=== PATIENT | male | born 1935 | race Caucasian/White ===

== ENCOUNTER 2020-04-12 09:17 | Emergency (ER) | payer MEDICARE, SELFPAY ==
[2020-04-12 09:25] VITALS: BP 156/76; PULSE 76; RESP 16; TEMP 36.4; O2SAT 100
--- NOTE | 2020-04-12 09:37 | ED.GENADULT ---
HPI - General Adult General Chief complaint: Wound/Laceration Stated complaint: dressing change Time Seen by Provider: 04/12/20 09:38 Source: patient Mode of arrival: ambulatory Limitations: no limitations History of Present Illness HPI narrative: 85-year-old male patient presents to the [facility] with complaints of a skin tear to the right wrist that happened about a week ago but states that he has been putting a dressing on it and today the dressing is stuck to the wound and he is unable to get it off. Patient states he is up-to-date on his tetanus. Patient states that he cut it while doing laundry about a week ago. Patient states he is putting salve on it as well as putting gauze over it and Band-Aids. Related Data Home Medications Medication Instructions Recorded Confirmed aspirin [Adult Aspirin EC Low 81 mg PO DAILY 04/12/20 04/12/20 Strength] Allergies Allergy/AdvReac Type Severity Reaction Status Date / Time No Known Allergies Allergy Unverified 01/02/19 14:57 Review of Systems Review of Systems: Narrative: CONSTITUTIONAL: Denies fever, chills, or sweats. EYES: Denies visual changes, redness, or discharge. ENT: Denies rhinorrhea, congestion, sore throat, or otalgia. CARDIOVASCULAR: Denies chest pain, palpitations, or edema. RESPIRATORY: Denies cough or dyspnea. GASTROINTESTINAL: Denies abdominal pain, nausea, vomiting, or diarrhea. GENITOURINARY: Denies dysuria or hematuria. SKIN: Denies rash or itching. Positive skin tear right wrist MUSCULOSKELETAL: Denies back pain, joint pain, or myalgia. NEUROLOGIC: Denies headache, numbness, or weakness. PSYCHIATRIC: Denies anxiety or depression. FORMERLY [facility] Past Medical History Medical History (Updated 04/12/20 @ 09:48 by ARANZA Joyce) Depression Family history of head, eyes, ears, nose, and throat (HEENT) problems Detached retina right eye Far-sighted FH: cataracts Left GERD (gastroesophageal reflux disease) Hypercholesterolemia Hypertension Irregular heartbeat Nearsightedness Pacemaker Surgical History Surgical History (Updated 04/12/20 @ 09:40 by ARANZA Joyce) Aortocoronary bypass status Bypass surgery with graft 2016 Social History Social History (Updated 04/12/20 @ 09:41 by GAURANG Joyce Smoking status: Former smoker Alcohol intake: former Comments At the time of my signature I agree with nursing past medical history, surgical, social, and family history. There is no relevant family history pertinent to the presenting complaint. Exam Narrative: Exam Narrative: GENERAL: Well-appearing, well-nourished, and in no acute distress. HEAD: Normocephalic, atraumatic. EYES: PERRLA and EOMI. ENT: Nares clear, no rhinorrhea or epistaxis. Mucous membranes moist. NECK: Supple. No lymphadenopathy CHEST: Clear to auscultation. No respiratory distress. HEART: Regular rate and rhythm. No murmur heard. Normal peripheral pulses. ABDOMEN: Soft, nontender, nondistended, normal active bowel sounds. EXTREMITIES: Normal range of motion. No edema. SKIN: Warm, dry, no rash. Patient has approximately 2.5 x 2 cm skin tear noted to the right wrist on the radial side. There is no discharge, no surrounding erythema or tenderness noted. There is some of his gauze that is stuck to the middle of the wound. NEURO: No focal deficits. Alert and oriented x3. Course Vital Signs Vital signs: Vital Signs Temperature 36.4 C 04/12/20 09:25 Pulse Rate 76 04/12/20 09:25 Respiratory Rate 16 04/12/20 09:25 Blood Pressure 156/76 H 04/12/20 09:25 Pulse Oximetry 100 04/12/20 09:25 Temperature 36.4 C 04/12/20 09:25 Pulse Rate 76 04/12/20 09:25 Respiratory Rate 16 04/12/20 09:25 Blood Pressure 156/76 H 04/12/20 09:25 Pulse Oximetry 100 04/12/20 09:25 Vital signs reviewed. The patient has been informed that they may have pre-hypertension or Hypertension based on a BP reading in the department. I recommend that the
== END 2020-04-12 09:59 | disposition home or self-care (01) ==
PROVIDERS: Emergency Provider Nurse Practitioner Family
DX: Z48.00 Encounter for change or removal of nonsurgical wound dressing (principal); S61.511A Laceration without foreign body of right wrist, initial encounter; X58.XXXA Exposure to other specified factors, initial encounter; K21.9 Gastro-esophageal reflux disease without esophagitis; E78.00 Pure hypercholesterolemia, unspecified; I10 Essential (primary) hypertension; Z95.0 Presence of cardiac pacemaker; Z95.5 Presence of coronary angioplasty implant and graft; Z79.82 Long term (current) use of aspirin
CPT/HCPCS: 99213; G0463

== ENCOUNTER 2021-02-15 17:22 | Emergency (ER) | payer MEDICARE, SELFPAY ==
--- NOTE | ~2021-02-15 | XR_ITS ---
XR wrist RT min 3V DATE: 02/15/2021 18:11 INDICATION: Fall. Right wrist injury, pain TECHNIQUE: 4 views COMPARISON: None FINDINGS: There is diffuse osteopenia. Approximately 5.6 mm cyst at the waist of the navicular bone. There is no abnormal increased density of the proximal portion of the navicular bone to suggest avascular necrosis. No wrist fracture or dislocation is detected. IMPRESSION: Osteopenia Benign navicular waist cyst Reviewed, dictated and finalized at location A.
--- NOTE | ~2021-02-15 | XR_ITS ---
XR hip RT 2V w AP pelvis DATE: 02/15/2021 18:11 INDICATION: Right pelvic and hip pain following a fall from bed TECHNIQUE: AP pelvis. AP, lateral and crosstable lateral views of right hip COMPARISON: None FINDINGS: There is diffuse osteopenia. There is prominent fracture deformity of L4 of uncertain age. Normal alignment at the pubic symphysis and sacroiliac joints. No pelvic fracture is evident. No frac ture or dislocation, avascular necrosis or bone destruction of the right hip is detected. Hip joint s paces are symmetric and relatively preserved. There is evidence of a probable large right inguinal hernia containing multiple loops of small bowel. IMPRESSION: Diffuse osteopenia No pelvic fracture or right hip fracture or dislocation is evident Fracture deformity of L4 of uncertain age Large bowel containing right inguinal hernia Reviewed, dictated and finalized at location A.
--- NOTE | ~2021-02-15 | XR_ITS ---
XR knee RT 3V DATE: 02/15/2021 18:11 INDICATION: Fall from bed. Right knee injury, pain TECHNIQUE: 3 views including crosstable lateral COMPARISON: None FINDINGS: There is moderate suprapatellar knee joint effusion. There is diffuse osteopenia. There is superior pole and particularly prominent inferior pole patellar enthesopathy. No fracture or dislocation, periosteal reaction or bone destruction is detected. There is moderately severe loss of joint space at the medial compartment consistent with osteoarthrit is. IMPRESSION: Suprapatellar knee joint effusion Osteopenia Medial compartment osteoarthritis Prominent patellar enthesopathy Reviewed, dictated and finalized at location A.
--- NOTE | 2021-02-15 17:29 | ED.UPPEXIN ---
HPI - Extremity Injury (Upper) General Chief Complaint: Extremity Injury, Upper Stated Complaint: fall/rt wrist/rt knee/rt hip injury Source: patient Mode of arrival: ambulatory Limitations: no limitations History of Present Illness HPI narrative: Patient is an 85-year-old male who presents complaining of right arm pain, right knee pain and right hip pain. Patient reports falling while getting out of bed this morning. Denies hitting head or neck, denies LOC. Patient is not on anticoagulants. Patient has a large skin tear to right forearm at wrist. No visible injury to the knee. He reports his hip hurts because my knee hurts . Patient does not have a history of falls. He denies other injuries. He denies taking [id number] medications for pain prior to arrival. Patient reports up to date on tetanus. MD complaint: injury to: right and arm Related Data Home Medications Medication Instructions Recorded Confirmed No Home Medications 02/15/21 02/15/21 Allergies Allergy/AdvReac Type Severity Reaction Status Date / Time No Known Allergies Allergy Unverified 02/15/21 17:52 Review of Systems Review of Systems: CONSTITUTIONAL: Denies fever, chills, or sweats. EYES: Denies visual changes, redness, or discharge. ENT: Denies rhinorrhea, congestion, sore throat, or otalgia. CARDIOVASCULAR: Denies chest pain, palpitations, or edema. RESPIRATORY: Denies cough or dyspnea. GASTROINTESTINAL: Denies abdominal pain, nausea, vomiting, or diarrhea. GENITOURINARY: Denies dysuria or hematuria. SKIN: Reports skin tear to right forearm MUSCULOSKELETAL: Reports right knee pain, right hip pain and right wrist pain. NEUROLOGIC: Denies headache, numbness, dizziness, or weakness. PSYCHIATRIC: Denies anxiety or depression. 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 Please see nursing chart for further information. There is no relevant family history pertinent to the presenting complaint. Exam Narrative: GENERAL: Well-appearing, well-nourished, and in no acute distress. HEAD: Normocephalic, atraumatic. EYES: EOMI. No redness or drainage. Conjunctiva are normal. ENT: Mucous membranes pink and moist. Nares clear. No rhinorrhea. TMs normal bilaterally. Throat normal. Uvula midline. NECK: AROM. Supple. No lymphadenopathy. CHEST: No respiratory distress. Clear to auscultation. HEART: Regular rate and rhythm. No murmur appreciated. Normal peripheral pulses. GI: Soft, nontender without rebound, or guarding. No distention. Bowel sounds normal in all quadrants. MUSCULOSKELETAL: No bony tenderness. EXTREMITIES: Right knee: Normal range of motion, no edema. Right hip: Shortening or rotation, ambulates with difficult. No ecchymosis or abrasions on hip or knee. Right forearm: No deformity, full range of motion, distal sensation intact, good capillary refill SKIN: Approximate 10cm x 12cm skin tear to dorsal right forearm NEURO: No focal deficits. Alert and oriented x3. Gait steady. PSYCH: Normal affect. No signs of depression or anxiety. Course Vital Signs Vital signs: Vital Signs Temperature 36.6 C 02/15/21 17:43 Pulse Rate 85 02/15/21 17:43 Respiratory Rate 16
[2021-02-15 17:43] VITALS: BP 125/60; PULSE 85; RESP 16; TEMP 36.6; O2SAT 98
== END 2021-02-15 19:25 | disposition home or self-care (01) ==
PROVIDERS: Emergency Provider Nurse Practitioner
DX: S51.811A Laceration without foreign body of right forearm, initial encounter (principal); W19.XXXA Unspecified fall, initial encounter; F32.9 Major depressive disorder, single episode, unspecified; G21.9 Secondary parkinsonism, unspecified; K21.9 Gastro-esophageal reflux disease without esophagitis; E78.00 Pure hypercholesterolemia, unspecified; I10 Essential (primary) hypertension; Z95.0 Presence of cardiac pacemaker; Z95.1 Presence of aortocoronary bypass graft
CPT/HCPCS: 73110; 73502; 73562; 99214; G0463

== ENCOUNTER 2021-12-05 17:16 | Emergency (ER) | payer MEDICARE, SELFPAY ==
--- NOTE | ~2021-12-05 | XR_ITS ---
EXAM: XR shoulder RT min 2V DATE: 12/05/2021 18:49 HISTORY: fall with lac eval for retained fb, cuts are in his armpit . COMPARISON: None available. FINDINGS: Decreased mineralization. No fracture or dislocation. No lytic or blastic lesion. Superior migration of the humeral head as can be seen with rotator cuff pathology. Calcific tendinitis. No er osion or periosteal change. Soft tissues within normal limits. IMPRESSION: No acute osseous finding in the right shoulder. Reviewed, dictated and finalized at location K.
[2021-12-05 17:22] VITALS: BP 131/89; PULSE 92; RESP 16; TEMP 36.8; O2SAT 100
[2021-12-05] MEDS: TETANUS,DIPHTHERIA,AC PERTUSSIS ADULT (0.5 ML) BOOSTRIX IM (18:46)
[2021-12-05] MEDS: LIDO 1%/EPINEPHRINE 1:100,000 20 ML VIAL 10 ML INFILTRATE (18:46)
--- NOTE | 2021-12-05 18:54 | ED.WOUNDLAC ---
HPI - Wound/Laceration General Chief Complaint: Wound/Laceration Stated Complaint: R ARM LAC AFTER STOOL COLLAPSED Time Seen by Provider: 12/05/21 18:24 Source: patient History of Present Illness HPI narrative: Patient presents with a laceration to the right axilla. Patient reportedly was sitting on some plastic when it broke and he cut his right armpit on the fractured plastic. I thought the wound was deep so he came to the ER for further evaluation. Reports mild ache to the area worse with moving his arm but no radiation. He denies hitting hishead or any loss of consciousness is not on any blood thinners. He does not remember his last tetanus shot was Related Data Allergies Allergy/AdvReac Type Severity Reaction Status Date / Time No Known Allergies Allergy Unverified 02/15/21 17:52 Review of Systems Review of Systems: CONSTITUTIONAL: Denies fever, chills, or sweats. EYES: Denies visual changes, redness, or discharge. ENT: Denies rhinorrhea, congestion, sore throat, or otalgia. CARDIOVASCULAR: Denies chest pain, palpitations, or edema. RESPIRATORY: Denies cough or dyspnea. GASTROINTESTINAL: Denies abdominal pain, nausea, vomiting, or diarrhea. GENITOURINARY: Denies dysuria or hematuria. SKIN: Denies rash or itching. MUSCULOSKELETAL: Denies back pain, or myalgia. NEUROLOGIC: Denies headache, numbness, dizziness, or weakness. PSYCHIATRIC: Denies anxiety or depression. All systems reviewed & are unremarkable except as noted in HPI and below PMFSH Past Medical History Medical History Depression Family history of head, eyes, ears, nose, and throat (HEENT) problems Detached retina right eye Far-sighted FH: cataracts Left GERD (gastroesophageal reflux disease) Hypercholesterolemia Hypertension Irregular heartbeat Nearsightedness Pacemaker Surgical History Surgical History Aortocoronary bypass status Bypass surgery with graft 2016 Social History Social History Smoking status: Former smoker Alcohol intake: former Exam Narrative: GENERAL: Well-appearing, well-nourished, and in no acute distress. HEAD: Normocephalic, atraumatic. EYES: PERRLA and EOMI. ENT: Nares clear, no rhinorrhea or epistaxis. Mucous membranes moist. NECK: Supple. No masses. No JVD EXTREMITIES: Normal range of motion. No edema. SKIN: Warm, dry, no rash. 2 linear lacerations next to each other in the right axilla. They are approximately 2 and half centimeters in length. They appear to be limited to the subcutaneous tissue there is no muscle tendons or major neurovascular bundles visualized NEURO: No focal deficits. Alert and oriented x3. PSYCH: Normal mood and affect. Course Reevaluation(s) Reevaluation #1: Patient tolerated laceration repair well wound care instructions given Date: 12/05/21 Time: 19:35 Vital Signs Vital signs: Vital Signs Temperature 36.8 C 12/05/21 17:22 Pulse Rate 92 12/05/21 17:22 Respiratory Rate 16 12/05/21 17:22 Blood Pressure 131/89 12/05/21 17:22 Pulse Oximetry 100 12/05/21 17:22 Oxygen Delivery Room Air 12/05/21 17:22 Temperature 36.8 C 12/05/21 17:22 Pulse Rate 92 12/05/21 17:22 Respiratory Rate 16 12/05/21 17:22 Blood Pressure 131/89 12/05/21 17:22 Pulse Oximetry 100 12/05/21 17:22 Oxygen Delivery Room Air 12/05/21 17:22 Procedures Laceration Laceration 1: Date: 12/05/21 Time: 19:24 Site: upper extremity Side (If applicable): right Size (cm): 2.5 Description: linear Depth: simple, single layer Local Anesthetic: lidocaine 1% and with epi Amount of anesthesia used (mL): 4 Pre-repair: wound explored and irrigated ====== Skin Level ====== Skin layer closed with: nylon Size (cm): 3-0 Number of yen
== END 2021-12-05 19:36 | disposition home or self-care (01) ==
PROVIDERS: Emergency Provider Emergency Medicine
DX: S41.111A Laceration without foreign body of right upper arm, initial encounter (principal); Z23 Encounter for immunization; E78.00 Pure hypercholesterolemia, unspecified; I10 Essential (primary) hypertension; K21.9 Gastro-esophageal reflux disease without esophagitis; Z95.0 Presence of cardiac pacemaker; Z95.1 Presence of aortocoronary bypass graft; Z87.891 Personal history of nicotine dependence; W26.8XXA Contact with other sharp object(s), not elsewhere classified, initial encounter
CPT/HCPCS: 12002; 73030; 90471; 90715; 99283

== ENCOUNTER 2022-11-04 20:03 | Emergency (ER) | payer MEDICARE, SELFPAY ==
[2022-11-04] VITALS (25 sets, daily range): BP systolic 143–172; BP diastolic 65–86; PULSE 70–78; RESP 12–24; TEMP 37.1; O2SAT 94–100
--- NOTE | 2022-11-04 20:08 | ECG_ITS ---
Measurements Intervals [place] Rate: 70 P: 122 IA: 170 QRS: 249 QRSD: 135 T: 104 QT: 414 QTc: 447 Interpretive Statements ELECTRONIC ATRIAL PACEMAKER ELECTRONIC VENTRICULAR PACEMAKER ABNORMAL RHYTHM ECG NO PREVIOUS ECG AVAILABLE FOR COMPARISON Electronically Signed On 11-05-2022 9:39:09 CDT by Dpiti Carter M.D.
--- NOTE | 2022-11-04 22:56 | ED.GENADULT ---
HPI - General Adult General Chief complaint: Dizziness Stated complaint: dizziness Time Seen by Provider: 11/04/22 21:38 History of Present Illness HPI narrative: Patient 87-year-old gentleman who presents the emergency department with chief complaint of dizziness. The patient reports that he was at home and had an episode where he felt lightheaded the patient states it lasted for just a couple of minutes and symptoms resolved the patient states he is not no longer any other episodes denies chest pain denies shortness of breath denies syncope patient states that he had no vomiting or diarrhea no other symptoms. Related Data Allergies Allergy/AdvReac Type Severity Reaction Status Date / Time No Known Allergies Allergy Unverified 02/15/21 17:52 Review of Systems Review of Systems: A 10 system review of systems was completed on the patient and is negative except for what is stated in the HPI. Nursing and ancillary documentation was reviewed. [facility] Past Medical History Medical History Depression Family history of head, eyes, ears, nose, and throat (HEENT) problems Detached retina right eye Far-sighted FH: cataracts Left GERD (gastroesophageal reflux disease) Hypercholesterolemia Hypertension Irregular heartbeat Nearsightedness Pacemaker Surgical History Surgical History Aortocoronary bypass status Bypass surgery with graft 2016 Social History Social History Smoking status: Former smoker Alcohol intake: former Exam Narrative: GENERAL: Well-appearing, well-nourished, and in no acute distress. HEAD: Normocephalic, atraumatic. EYES: PERRLA and EOMI. ENT: Nares clear, no rhinorrhea or epistaxis. Mucous membranes moist. NECK: Supple. CHEST: Clear to auscultation. No respiratory distress. HEART: Regular rate and rhythm. No murmur heard. Normal peripheral pulses. ABDOMEN: Soft, nontender, nondistended, normal active bowel sounds. EXTREMITIES: Normal range of motion. No edema. SKIN: Warm, dry, no rash. NEURO: No focal deficits. Alert and oriented x3. PSYCH: Normal mood and affect. Course Course Emergency Course: Differential diagnosis includes arrhythmia, orthostatic hypotension, electrolyte abnormality, UTI, CVA, pulmonary embolism. EKG showed a paced rhythm with a rate of 70. While waiting for the laboratory testing to be performed the patient decided he was feeling well and decided he did not want to do any further testing the patient states that he wants to go home and that he will return if his symptoms worsen. Patient was offered laboratory testing was offered further testing and was explained to the patient we could miss a potentially fatal or permanently disabling condition the patient expressed understanding this was alert oriented denies suicidal or homicidal ideation Vital Signs Vital signs: Vital Signs Temperature 37.1 C 11/04/22 20:06 Pulse Rate 70 11/04/22 20:06 Respiratory Rate 18 11/04/22 20:06 Blood Pressure 172/71 H 11/04/22 20:06 Pulse Oximetry 97 11/04/22 20:06 Oxygen Delivery Room Air 11/04/22 20:06 Temperature 37.1 C 11/04/22 20:06 Pulse Rate 70 11/04/22 22:31 Respiratory Rate 15 11/04/22 22:31 Blood Pressure 150/75 H 11/04/22 22:31 Pulse Oximetry 96 11/04/22 22:31 Oxygen Delivery Room Air 11/04/22 20:06 Medical Decision Making Vital Signs Vital Signs: Vital Signs Temperature 37.1 C 11/04/22 20:06 Pulse Rate 70 11/04/22 20:06 Respiratory Rate 18 11/04/22 20:06 Blood Pressure 172/71 H 11/04/22 20:06 Pulse Oximetry 97 11/04/22 20:06 Oxygen Delivery Room Air 11/04/22 20:06 Temperature 37.1 C 11/04/22 20:06 Pulse Rate 70 11/04/22 22:31 Respiratory Rate 15 11/04/22 22:31 Blood Pressure 150/75 H 06
== END 2022-11-04 23:01 | disposition left against medical advice (07) ==
PROVIDERS: Emergency Provider Emergency Medicine
DX: R42 Dizziness and giddiness (principal); I10 Essential (primary) hypertension; E78.00 Pure hypercholesterolemia, unspecified; H26.9 Unspecified cataract; K21.9 Gastro-esophageal reflux disease without esophagitis; Z95.0 Presence of cardiac pacemaker; Z95.1 Presence of aortocoronary bypass graft; Z87.891 Personal history of nicotine dependence
CPT/HCPCS: 93005; 99283

== ENCOUNTER 2023-11-28 11:28 | Emergency (ER) | payer MEDICARE, SELFPAY ==
--- NOTE | ~2023-11-28 | XR_ITS ---
EXAMINATION: XR chest 1V portable DATE: 11/28/2023 13:21 INDICATION: Weakness. TECHNIQUE: A single frontal view of the chest was obtained. COMPARISON: Chest 2 views 11/07/2013 FINDINGS: There is mild scarring at the lung apices. A calcified left lung nodule is consistent with old granulomatous disease. There is a large hiatal hernia. There is mild atelectasis in right midlung zone. No pleural effusion or pneumothorax. The heart size is normal. There is a left chest pacer wit h leads in right atrium, right ventricle, and coronary sinus. Surgical clips in the right upper quadr ant are likely from cholecystectomy. There is a chronic sclerotic lesion in proximal left humerus, li michael an enchondroma or osteonecrosis. There are surgical clips in the neck. IMPRESSION: 1. Large hiatal hernia. 2. Mild atelectasis in right midlung zone and mild scarring at the lung apices. Reviewed, dictated and finalized at location A.
[2023-11-28 11:29] VITALS: BP 130/58; PULSE 72; RESP 18; TEMP 36.9; O2SAT 99
--- NOTE | 2023-11-28 13:05 | ED.GENADULT ---
HPI - General Adult General Chief complaint: Unspecified Stated complaint: does not feel well Time Seen by Provider: 11/28/23 12:48 History of Present Illness HPI narrative: 88-year-old male present to the emergency department for evaluation of just not feeling well. Patient states he was feeling well yesterday but woke up this morning and was not feeling well. Patient denies any chest pain or shortness of breath. Patient denies any nausea vomiting diarrhea. Patient denies any pain with urination. Patient denies any decreased p.o. intake. Patient states normal have breakfast but did not have breakfast today. Patient neck for reason why he did not. Patient had similar symptoms on October 06 and had extensive workup from outside hospital and patient that time was treated for urinary tract infection. Related Data Allergies Allergy/AdvReac Type Severity Reaction Status Date / Time No Known Allergies Allergy Verified 11/28/23 13:55 Review of Systems Review of Systems: All systems reviewed & are unremarkable except as noted in HPI and below PMFSH Past Medical History Medical History Depression Family history of head, eyes, ears, nose, and throat (HEENT) problems Detached retina right eye Far-sighted FH: cataracts Left GERD (gastroesophageal reflux disease) Hypercholesterolemia Hypertension Irregular heartbeat Nearsightedness Pacemaker Surgical History Surgical History Aortocoronary bypass status Bypass surgery with graft 2016 Social History Social History Smoking status: Former smoker Alcohol intake: former Exam Narrative: APPEARANCE: Well appearing, no pain, no distress, well-nourished. HEAD: normocephalic, atraumatic. EYES: PERRLA/EOMI, conjunctivae clear. NOSE: Normal no drainage EARS:TMS clear with good light reflex. THROAT: Pharynx clear, no exudate. NECK: Supple. No adenopathy, no masses. RESPIRATORY: Airway patent, respirations nonlabored. Clear to auscultation bilaterally, no rales, rhonchi, wheezing. CARDIOVASCULAR: Regular rate and rhythm without murmurs rubs or gallops. ABDOMINAL: Soft, nontender, nondistended, normal bowel sounds MUSCULOSKELETAL: Moves all extremities. Strength/ROM intact, No edema, No calf tenderness. NEURO: Alert. Cranial nerves II through XII intact. Grossly intact SKIN: Warm, dry. Normal Color Course Course Emergency Course: Patient requested to be discharged to home Vital Signs Vital signs: Vital Signs Temperature 98.4 F 11/28/23 11:29 Pulse Rate 72 11/28/23 11:29 Respiratory Rate 18 11/28/23 11:29 Blood Pressure 130/58 L 11/28/23 11:29 Pulse Oximetry 99 11/28/23 11:29 Oxygen Delivery Room Air 11/28/23 11:29 Temperature 98.4 F 11/28/23 11:29 Pulse Rate 70 11/28/23 15:53 Respiratory Rate 18 11/28/23 15:53 Blood Pressure 143/71 H 11/28/23 15:53 Pulse Oximetry 100 11/28/23 15:53 Oxygen Delivery Room Air 11/28/23 11:29 Medical Decision Making MDM Narrative Medical decision making narrative: 88-year-old male presents emergency department for evaluation for not feeling well. Patient is afebrile with no leukocytosis and a stable hemoglobin. Patient has no acute abnormalities on his CMP patient was negative for influenza RSV and for COVID and patient's chest x-ray showed no evidence of pneumonia. Patient's urinalysis was not complete. Patient states he prefers to be discharged to home. Patient is adamant about this. Family is comfortable with plan for discharge and close follow-up. They were advised that a urinary tract infection was not ruled out and they work encouraged to have close follow-up with the patient's primary care physician. Differential Diagnosis Differential Diagnosis: COVID, RSV, influenza, UTI, pneumonia Vital S
[2023-11-28 13:39] VITALS: BP 109/57; PULSE 70; RESP 18; O2SAT 99
[2023-11-28 13:44] LABS: Basophils Percent Auto 0.7 % (0.2-1.2); Eosinophils Absolute Auto 0.1 K/mm3 (0-0.3); Eosinophils Percent Auto 1.8 % (0-4.4); Hematocrit 38.9 % (42.0-52.0); Hemoglobin 13.1 g/dL (14.0-18.0); Immature Granulocyte Absolute 0.01 K/mm3 (0.00-0.031); Immature Granulocyte Percent A 0.2 % (0-0.5); Lymphocytes Absolute Auto 1.41 K/mm3 (0.9-3.2); Lymphocytes Percent Auto 25.9 % (18.3-44.2); Mean Corpuscular HGB Conc 33.7 g/dl (32-36); Mean Corpuscular Hemoglobin 31.7 pg (26-34); Mean Corpuscular Volume 94.2 fl (80-100); Monocytes Absolute Auto 0.6 K/mm3 (0.1-0.6); Monocytes Percent Auto 10.1 % (2.6-8.5); Neutrophils Absolute Auto 3.3 K/mm3 (1.3-6.7); Neutrophils Percent Auto 61.3 % (45.5-73.1); Platelet Count Result 164 k/mm3 (150-375); Red Blood Count 4.13 M/mm3 (4.6-6.20); Red Cell Distribution Width 14.3 % (11.5-14.5); White Blood Count 5.5 K/mm3 (4.5-10.0)
[2023-11-28 13:59] LABS: Alanine Aminotransferase 7 U/L (6-50); Albumin Level 3.2 g/dL (3.5-5.1); Alkaline Phosphatase 95 U/L (38-126); Anion Gap 2 mmol/L (4-12); Aspartate Amino Transferase 17 U/L (17-59); Bilirubin,Total 1.1 mg/dL (0.2-1.3); Blood Urea Nitrogen 14 mg/dL (9-20); Calcium 8.5 mg/dL (8.4-10.2); Carbon Dioxide 28 mmol/L (22-30); Chloride 108 mmol/L (98-107); Estimated CRCL calculation 56 ml/min; Estimated Glomerular Filt Rate > 60; Glucose 111 mg/dL (65-110); Sodium 138 mmol/L (137-145)
[2023-11-28 14:44] LABS: Influenza A QL RT-PCR Negative (Negative); Influenza B QL RT-PCR Negative (Negative); RSV RNA, RT-PCR Negative (Negative); SARS-CoV-2 RNA PCR Negative (Negative)
[2023-11-28 15:11] VITALS: BP 138/70; PULSE 71; RESP 18; O2SAT 99
[2023-11-28 15:53] VITALS: BP 143/71; PULSE 70; RESP 18; O2SAT 100
== END 2023-11-28 15:55 | disposition home or self-care (01) ==
PROVIDERS: Emergency Provider Emergency Medicine
DX: R69 Illness, unspecified (principal); I10 Essential (primary) hypertension; Z87.891 Personal history of nicotine dependence; Z20.822 Contact with and (suspected) exposure to COVID-19
CPT/HCPCS: 36415; 71045; 80053; 85025; 87637; 99283

== ENCOUNTER 2024-07-27 10:42 | Emergency (ER) | payer MEDICARE, SELFPAY ==
--- NOTE | ~2024-07-27 | CT_ITS ---
EXAMINATION: CT brain wo con DATE: 07/27/2024 11:56 INDICATION: Frequent falls TECHNIQUE: Computed tomography (CT) of the head was performed without intravenous contrast. Sagittal and coronal reconstructions were performed. The mA was adjusted according to patient size. Iterative reconstruction technique was employed. The dose-length product was 769.48 mGy-cm. COMPARISON: head CT dated 12/29/2011 FINDINGS: No fracture. 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 No acute intracranial hemorrhage, acute infarction or abnormal extra axial fluid geovany ection. There is moderate scattered white matter hypoattenuation consistent with chronic small vessel ischemic disease. Symmetric prominence of the sulci consistent with moderate age-appropriate diffuse cerebral volume loss. Ventricles are normal and symmetric. No mass/mass effect. Minimal bilateral ma stoid effusions. Scleral banding at the right globe. The orbits, paranasal sinuses and mastoid air ce lls are normal. IMPRESSION: 1. 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 No acute intracranial process. 2. Age-related changes including moderate diffuse volume loss and moderate scattered white matter hyp oattenuation consistent with chronic small vessel ischemic disease. Reviewed, dictated and finalized at location A. DENTIAL SALES CONSULTANT IMPRESSION: 1. 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 No acute intracranial process. 2. Age-related changes including moderate diffuse volume loss and moderate scat tered white matter hypoattenuation consistent with chronic small vessel ischemi c disease.
--- NOTE | ~2024-07-27 | XR_ITS ---
EXAMINATION: XR elbow LT 2V DATE: 07/27/2024 11:46 INDICATION: Fall with skin tear at the left elbow TECHNIQUE: Anteroposterior and lateral views of the left elbow were obtained. COMPARISON: None. FINDINGS: Alignment is normal. No fracture or joint effusion. 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 Soft tissues are unremarkable. IMPRESSION: 1. Moderate left elbow osteoarthritis. No acute osseous abnormality. Reviewed, dictated and finalized at location A. ER EXTRUSION MACHINE OPERATOR
[2024-07-27 10:40] VITALS: BP 138/82; PULSE 77; RESP 17; TEMP 36.8; O2SAT 99
[2024-07-27 10:45] VITALS: BP 138/82; PULSE 77; RESP 16; O2SAT 97
--- NOTE | 2024-07-27 11:11 | ECG_ITS ---
Test Date: 2024-07-27 12:31:30 Measurements Intervals [place] Rate: 80 P: 50 VT: 133 QRS: 246 QRSD: 144 T: 55 QT: 420 QTc: 486 Interpretive Statements ATRIAL SENSE- ELECTRONIC VENTRICULAR PACEMAKER BASELINE ARTIFACT- I, II, III, AVR, AVL, AVF, V1-V6 NO FURTHER INTERPRETATION IS POSSIBLE ATYPICAL ECG No previous ECG available for comparison Electronically Signed On 07-27-2024 13:46:05 VALVING MACHINE OPERATOR by Govind Wilson D.O.
--- NOTE | 2024-07-27 11:11 | ED_ITS ---
HPI - Fall General Chief Complaint: Fall Stated Complaint: fall Time Seen by Provider: 07/27/24 10:52 History of Present Illness HPI Narrative: 89-year-old male with a past medical history including hypertension, pacemaker, frequent falls. 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 His family is present at bedside for collateral formation. Patient states that he was getting up to 10 to some chores in the household when he lost his balance and fell down. Denies hitting his head denies any dizziness. He states that he landed onto his left elbow and does have a wound there that EMS bandaged up. Family provides collateral and states that he falls frequently but adamant that he does not go to a nursing facility or have higher level of care. Patient has a home health aide that comes and changes dressings and assists in the household for several hours during the day. Patient self does not take any anticoagulation medications. Denies any pain or symptoms at this time. Denies any chest pain, headache, vision changes, nausea, vomiting abdominal pain, back pain. He is alert x4 answering all questions appropriately. He states he is not any distress and would like to go home. Tetanus is up-to-date per his knowledge. Related Data Allergies Allergy/AdvReac Type Severity Reaction Status Date / Time No Known Allergies Allergy Verified 11/28/23 13:55 Review of Systems Review of Systems: As reviewed above in [facility] Past Medical History Medical History Depression GERD (gastroesophageal reflux disease) Hypertension Irregular heartbeat Hypercholesterolemia Pacemaker FH: cataracts Left Far-sighted Nearsightedness Family history of head, eyes, ears, nose, and throat (HEENT) problems Detached retina right eye Surgical History Surgical History Aortocoronary bypass status Bypass surgery with graft 2016 Social History Social History Smoking status: Former smoker Alcohol intake: former Exam Narrative: GENERAL: Elderly appearing and thin/frail appearing but not any acute distress. HEAD: [Normocephalic, atraumatic.] EYES: [PERRLA and EOMI.] ENT: Nares clear, no rhinorrhea or epistaxis. Mucous membranes moist. NECK: Supple. CHEST: [Clear to auscultation. No respiratory distress.] HEART: [Regular rate and rhythm]. No murmur heard. [Normal peripheral pulses.] ABDOMEN: [Soft, nondistended], [nontender], [No rigidity or guarding] EXTREMITIES: Normal range of motion. Some swelling over the left elbow without any restricted range of motion. Large approximately 5x11cm skin tear surrounding the distal left upper arm into the elbow but no laceration. No active bleeding. SKIN: Multiple other skin tears in various stages of healing throughout the arms and legs, thin and frail paper like scan NEURO: [No focal deficits]. Alert and oriented [x3.] Moves all extremities spontaneously, no strength deficits, no incoordination. No nystagmus. PSYCH: [Normal mood and affect.] Course Vital Signs Vital signs: Vital Signs Temperature 36.8 C 07/27/24 10:40 Pulse Rate 77 07/27/24 10:40 Respiratory Rate 17 07/27/24 10:40 Blood Pressure 138/82 07/27/24 10:40 Pulse Oximetry 99 07/27/24 10:40 Oxygen Delivery Room Air 07/27/24 10:40 Temperature 36.8 C 07/27/24 10:40 Pulse Rate 77 07/27/24 10:40 Respiratory Rate 17 07/27/24 10:40 Blood Pressure 138/82 07/27/24 10:40 Pulse Oximetry 99 07/27/24 10:40 Oxygen Delivery Room Air 07/27/24 10:40 MDM - Fall MDM Narrative Medical decision making narrative: 89-year-old male with history of hypertension, pacemaker, frequent falls. Presents via EMS after a fall at home. Patient did not have any syncope or loss of consciousness. Denies hitting his head. Denies any blood thinner use. He has no complaints at this time except for some swelling in his left elbow around a very large skin tear. No active bleeding and his tetanus is already up-to-date. He has normal range of motion, no reproducible tenderness on examination. No evidence of head trauma. Does have various skin tears that appear healed over with thin skin. Differential includes orthostatic or vaso vagal syncopal event, loss of balance and mechanical fall which seems likely given his history, less likely intracranial event such as a bleed or hemorrhage, he otherwise appears well hydrated and has normal vital signs. Family is adamant that he does not go to a nursing facility or get into a placement facility and patient himself wants to go home. Patient himself has no complaints at this time Given his age and risk factors x-rays were obtained of his elbow, CT of the head was obtained given his frequent falls and age. EKG obtained. Family did inquire about home health aide with higher level of support so healthcare network pricing consultant was consulted to evaluate and provide recommendations. Wound was bandaged up with bacitracin applied. X-rays were obtained that showed no acute osseous process the elbow, CT of the head without any acute intracranial findings. 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 EKG was obtained which shows a ventricular paced rhythm but no acute arrhythmia or ectopy, no concerning Sgarb abrahan criteria met. Patient was re-evaluated and still having no complaints. Patient and family would like to go home at this time. Patient is safe and stable for discharge home and has a close outpatient PCP follow-up in several days. There was some confusion on his tetanus updated for his my chart review. Patient was given a tetanus update here in the ED as a precaution, will be sent home with bacitracin cream and wound care instructions. Family will be able to transport the patient back home. Medical Records Attestation: I reviewed the patient's medical records. Lab Data Attestation: I reviewed the patient's lab results. Imaging Data Attestation: I personally reviewed and interpreted this imaging study as follows: My impression: Impressions Elbow X-Ray 07/27/24 11:50 IMPRESSION: 1. Moderate left elbow osteoarthritis. No acute osseous abnormality. Head CT 07/27/24 11:59 IMPRESSION: 1. 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 No acute intracranial process. 2. Age-related changes including moderate diffuse volume loss and moderate scattered white matter hypoattenuation consistent with chronic small vessel i schemic disease. Discharge Plan Discharge Clinical Impression: Ground-level fall, Skin tear of elbow without complication, Pacemaker Patient Disposition: Home, Self-Care Condition: Stable Instructions: Antibiotic Form, Bacitracin (On the skin), Skin Avulsion (ED), Skin Tear (ED), Acute Wounds (DC) Additional Instructions: Follow-up with regular doctor appointment this coming week. If you have any new or worsening symptoms please return to the emergency department. Your CT scans, x-rays and EKG were all reassuring. We have sent home with bacitracin cream for your skin wound. Wound care instructions also provided. Return with any concerns at any time. Patient Language: Croatian Prescriptions: New bacitracin 500 unit/gram ointment 1 applic topical Q8H Qty: 30 0RF No Action cephalexin 500 mg capsule 500 mg PO Q8H 7 Days Qty: 21 0RF cephalexin 500 mg capsule 500 mg PO Q8H 7 Days Qty: 21 0RF Follow-up/Referrals: UNKNOWN,DOCTOR [Primary Care Provider] - Time of Disposition: 12:55
--- OUTSIDE RECORDS SUMMARY | 2024-07-27 11:15 | XMS_ITS | Encounter Summary ---
Author Organization [facility] Address [address] [place] [address] Phone Care Team Providers Care Plate Glass Installer Helper Name Role Phone Isabel Bowen MD Primary Care Provider [phone] Nichol Montes EDUCATIONAL ADMINISTRATION TEACHER Unavailable [phone] Dia Richards EDUCATIONAL ADMINISTRATION TEACHER Unavailable [phone] Encounter Details Date Type Department Care Team (Late st Contact Info) Description 08/28/2017 Orders Only [facility] ProviderEz MD [address] [place] [address] Social History Tobacco Use Types Packs/Day Years Used Date Smoking Tobacco: Former Cigarettes Q uit: 1959 Smokeless Tobacco: Never Comments:Smoking History Pac ks/day: 2 Packs Alcohol Use Standard Drinks/Week Comments Yes 0 (1 standard drink = 0.6 oz pur e alcohol) Sex and Gender Information Value Date Recorded Sex Assigned at Not on file Legal 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 us Historical Provider LAB BLOOD ORDERABLES Kenya l Result documented in this encounter Visit Diagnoses Not on filedocumented in this encounter Additional Health Concerns Infection Onset Date Last Indicated Resolved Time COVID: Suspected 10/07/2023 10/07/2023 10/07/2023 6:55 PM CDT documented as of this encounter Care Teams Plate Glass Installer Helper Relationship Specialty Start Date End Date Isabel Bowen MD [address] [facility] [address], [place] [id number] PCP - General 09/02/16 Nichol Montes, EDUCATIONAL ADMINISTRATION TEACHER [address] [place], [place] [id number] Integration Software Engineer Wound Care Technician 02/17/21 02/21/21 Dia Richards, EDUCATIONAL ADMINISTRATION TEACHER [address] [place] [address] Integration Software Engineer 04/12/22 05/16/22 documented as of this encounter
--- OUTSIDE RECORDS SUMMARY | 2024-07-27 11:15 | XMS_ITS | Clinical Summary ---
Author Organization [facility] Address [address] [place] [address] Care Team Providers Care Lead Software Engineer Name Role Phone Isabel Bowen MD Primary Care Provider [phone] Allergies No known active allergies Medications cephalexin (KEFLEX) 250 mg capsuleIndicati ons:Urinary Tract/Genitouri nary Infection Take 1 capsule (250 mg total) by mouth 2 (two) times a day 14 capsule 10/07/2023 Active Active Problems Problem Noted Date Diagnosed Date Laceration of skin of right eyelid and periocula r area 12/14/2021 Assessment & Plan (12/14/2021 8:07 AM CDT): Acute problem: 10 sutures were removed during today's office visit. The patient and his son were educated on cleaning the area with soap and water twice daily. They understand to keep it clean and dry. The patient understands to follow up for his annual visit. He also understands to contact the office with any concerns, questions, new onset or worsening of symptoms. Carotid artery disease 05/18/2021 Assessment & Plan (05/19/2021 3:47 PM RING SEWER): Stable status post right carotid endarterectomy, asymptomatic. Continue same therapy. Continue diet and exercise. Right inguinal hernia 02/24/2021 Paroxysmal atrial fibrillation (CMS/HCC) 020 Assessment & Plan (05/19/2021 3:47 PM RING SEWER): Stable, very brief PAF and nonsustained VT noted on ICD check only, asymptomatic. Continue same therapy. Assessment & Plan (05/05/2020 12:38 PM RING SEWER): Stable, very brief PAF noted on ICD check only. Continue same therapy. VT (ventricular tachycardia) 05/05/2020 Assessment & Plan (05/05/2020 12:39 PM RING SEWER): Very brief nonsustained VT noted on ICD check only. Continue same therapy. Medicare annual wellness visit, subsequent 08/28 Assessment & Plan (08/28/2017 12:00 PM CDT): Medicare physical was performed today. I explained patient that if his blood work shows any abnormality will need to be followed up. I would like him to cut down his alcohol to 1 a day as he is drinking at least 2 drinks 3 times a week. CKD (chronic kidney disease) stage 3, GFR 30-59 ml/min 08/28/2017 Assessment & Plan (10/25/2018 2:59 PM CDT): Checking labs today to evaluate renal function. Assessment & Plan (08/28/2017 12:02 PM CDT): Renal condition will be checked by checking renal function panel today it is very important for you not to take any ibuprofen and Aleve and drink 6-8 cups of water a day. Anemia 08/28/2017 Assessment & Plan (08/28/2017 12:02 PM CDT): I will check the levels of iron B12 folate and ferritin level Thrombocytopenia 08/28/2017 Cardiomyopathy, ischemic 01/31/2017 Assessment & Plan (05/19/2021 3:46 PM RING SEWER): Stable, well compensated. Continue same therapy. Continue follow-up in the device clinic regarding his biventricular ICD. Assessment & Plan (05/05/2020 12:31 PM RING SEWER): Stable, moderate-severe left ventricular dysfunction, well compensated. Continue same therapy. His ICD check today will be reviewed, and further recommendations forthcoming then. Continue same therapy. Continue follow-up in the device clinic as well. Assessment & Plan (04/30/2019 2:12 PM RING SEWER): Stable, very well compensated. Continue same therapy. Continue follow-up in the device Clinic regarding his ICD. His ICD check today will be reviewed, and further recommendations forthcoming then. Assessment & Plan (04/24/2018 2:30 PM RING SEWER): Stable, very well compensated. Continue same therapy. Assessment & Plan (02/01/2017 1:31 PM CDT): Stable, well compensated status post biventricular ICD. Continue same therapy. He will continue to follow up in the device clinic as well. ICD (implantable cardioverte r-defibrillator), biventricular, in situ 01/09/2017 Overview (08/29/2017): [employer]ogen X4 [employer]-D implanted on 10/07/16 for ICM/CHF/LBBB. Leah Pickard-Irina Card Neuropathy 08/26/2016 Overview (10/28/2016): Neuropathy Coronary arteriosclerosis in [place] artery 10/19 Overview (09/09/2016): CRNRY ATHRSCL ELIZABETH VSSL Assessment & Plan (05/19/2021 3:46 PM RING SEWER): Stable, without angina. I made no change in his excellent medical regimen today, except to resume low-dose aspirin 81 mg daily.. I asked him to follow up with me annually, or sooner if needed. I again advised him to diet and exercise regularly. He can be cleared to undergo the planned hernia surgery and cataract surgery at acceptable risk from a cardiac standpoint. Assessment & Plan (05/05/2020 12:31 PM RING SEWER): Stable, without angina. I made no change in his excellent medical regimen today. I asked him to follow up with me annually, or sooner if needed. I again advised him to diet and exercise regularly. Assessment & Plan (04/30/2019 2:12 PM RING SEWER): Stable, without angina. I made no change in his excellent medical regimen today. I asked him to follow up with me annually, or sooner if needed. I again advised him to diet and exercise regularly. Assessment & Plan (04/24/2018 2:29 PM RING SEWER): Stable, without angina. I made no change in his excellent medical regimen today. I asked him to follow up with me annually, or sooner if needed. I again advised him to diet and exercise regularly. Assessment & Plan (02/01/2017 1:31 PM CDT): Stable, without angina status post recent coronary artery bypass grafting. I made no change in his excellent medical regimen today. I asked him to follow up with me annually, or sooner if needed. Assessment & Plan (11/10/2016 1:21 PM CDT): Doing well, slight redness mid sternum, decreased BS L base, check CXR today. Hyperlipidemia LDL goal <70 10/19/2013 Overview (09/09/2016): HYPERLIPIDEMIA NEC/NOS Assessment & Plan (05/19/2021 3:48 PM RING SEWER): Lipids are well controlled. Continue high-intensity statin therapy. Assessment & Plan (05/05/2020 12:35 PM RING SEWER): Lipids are well controlled. Continue high-intensity statin therapy. Assessment & Plan (04/30/2019 2:13 PM RING SEWER): Lipids are well controlled. Continue high-intensity statin therapy. Assessment & Plan (10/25/2018 2:59 PM CDT): Patient has been off atorvastatin for some time. Will check cholesterol levels today before considering reinstatement of medication. Assessment & Plan (04/24/2018 2:31 PM RING SEWER): Lipids are very well controlled. Continue high-intensity statin therapy. Assessment & Plan (02/01/2017 1:32 PM CDT): Lipids are well controlled. Continue statin therapy. Benign hypertensive heart di sease without congestive heart failure 06/22/2012 Overview (09/08/2016): BENIGN HYP HT DIS W/O HF Assessment & Plan (10/25/2018 2:59 PM CDT): Blood pressure is well controlled today. Heart rate is slightly bradycardic. Will wait at this time before starting carvedilol until lab test results are available. Resolved Problems Problem Noted Date Diagnosed Date Resolved Date Coronary artery disease invo lving coronary bypass graft of [place] heart without angina pectoris 08/28/2017 04/20/2018 Assessment & Plan (08/28/2017 12:01 PM CDT): Patient sees director of labor relations once a year. He is on aspirin 81 mg, carvedilol 3.25 twice a day. Atorvastatin 40 mg once a day. Will checking labs. Denies any chest pain. Low vitamin B12 level 08/28/20172021 Assessment & Plan (08/28/2017 12:02 PM CDT): I will check B12 level as your taking B12 tablet once a day BMI 26.0-26.9,adult 08/28/2017 04/17/20 22 Assessment & Plan (10/25/2018 3:02 PM CDT): Patient has lost 14 lb in the past 6 months. Assessment & Plan (01/04/2018 10:37 AM CDT): BMI Follow-up includes: education provided.BMI within normal limits for age. Assessment & Plan (08/28/2017 12:02 PM CDT): BMI is high: Your BMI indicates overweight or obesity and you need to reduce calories, lose weight at 1-2 # per week, restrict carbohydrates, fast foods, sweets; and alcohol intake as they are wasted calories. Recommend the Mediterranean diet or Weight Watchers as starting points. Join with a friend to gain responsibility. Walk as you are able with a goal of 30 minutes, 5 days/week will help your health and weight loss. Losing 5-10% of your obese weight is very beneficial. Abnormal chest x-ray 08/28/2017 022 Sinoatrial node dysfunction (CMS/HCC) 01/31/2017 08/28/2017 Essential hypertension 01/31/201704/17 Assessment & Plan (05/19/2021 3:47 PM RING SEWER): Systolic pressure is high today, but is well controlled in general. Continue same therapy. Continue diet and exercise. Assessment & Plan (05/05/2020 12:32 PM RING SEWER): Systolic pressure is high today, but is well controlled in general. Continue same therapy. Continue diet and exercise. Assessment & Plan (04/30/2019 2:13 PM RING SEWER): Blood pressure is well controlled. Continue same therapy. Continue diet and exercise. Assessment & Plan (04/24/2018 2:30 PM RING SEWER): Blood pressure is borderline today, but is well controlled in general. Continue same therapy. Continue diet and exercise. Assessment & Plan (08/28/2017 12:01 PM CDT): Hypertension is controlled. Continue carvedilol Assessment & Plan (02/01/2017 1:32 PM CDT): Blood pressure is well controlled. Continue same therapy. 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 Continue same therapy. Assessment & Plan (04/30/2019 2:12 PM RING SEWER): Stable status post right carotid endarterectomy, asymptomatic. Continue same therapy. Continue diet and exercise. Assessment & Plan (04/24/2018 2:30 PM RING SEWER): Stable, status post right carotid endarterectomy without symptoms. Continue same therapy. Continue diet and exercise. Assessment & Plan (02/01/2017 1:32 PM CDT): Stable, asymptomatic status post carotid endarterectomy. Continue follow-up with vascular surgery as well. Generalized anxiety disorder 10/19/2013 04/17/2022 Overview (09/07/2016): GENERALIZED ANXIETY DIS Gastroesophageal reflux disease 10/19/2013 08/28/2017 Overview (09/07/2016): ESOPHAGEAL REFLUX Atopic rhinitis 10/19/2013 03/01/2018 Overview (09/09/2016): ALLERGIC RHINITIS NOS Encounters Date Type Department Care Team Description 07/08/2024 12:15 PM RING SEWER [facility] [address] [place] [id number] ICD (implantable cardioverter-defibri llator), biventricular, in situ (Primary Dx); Cardiomyopathy, ischemic 07/08/2024 Orders Only [facility] [address] [place] [phone] Alber Lynn MD Cardiomyopathy, ischemic (Primary Dx) from Last 3 Months Immunizations Immunization Administration Dates Next Due Influenza, Quadrivalent, Hig h Dose, Preservative Free, Intrr 04/11/2022 Influenza, Quadrivalent, Spl it, Preservative Free, Intramuscular 05/09/2013 Influenza, Split 05/11/2010 Influenza, Trivalent, High D ose, Split, Preservative Free, Intramuscular 03/01/2018,03/06/2017,06/05/2016,05/12,05/11/2015,03/05/2014,03/05/2013 ,03/05/2013 Influenza, Trivalent, IM (MDV) 3,04/07/2012,03/22/2012,04/02,04/14/2008,03/28/2003,03/06/2002 Pneumococcal Conjugate PCV 13 08/25/2015 Pneumococcal Polysaccharide PPV23 08/28/2017,,03/28/2003 Tdap 12/05/2021,01/08/2018,04/28/2008 Surgical History Surgery Date Site/Laterality Comments POLYPECTOMY Polypectomy CORONARY ARTERY BYPASS GRAFT 10/03/2016 CABGx3 CAROTID ENARTERECTOMYY 02/11/2014 Right CARDIAC DEFIBRILLATOR PLACEMENT 10/03/2016 - 11/02/2016 Medical History Medical History Date Comments Hypertension Hypertension Depression Depression Cardiovascular disease Coronary Artery Disease Gastroesophageal reflux disease GERD Hx Other Medical 2008 benign adenomat ous polyp Hx Other Medical Hiatal Hernia Hx Other Medical Diverticulosis Hx Other Medical 10/2016 ICD Hyperlipidemia Hernia, inguinal Family History Medical History Relation Name Comments Coronary artery disease Brother 2 2 Mariam nary Artery Bypass Graft; Heart failure Brother 3 Congestive Hea rt Failure; Kidney failure Father Kidney Failur e; Cause of : Kidney Failure Other Mother ; Coronary artery disease Other 2 Mariam nary Artery Disease; Relation Name Status Comments Brother 1 Alive Brother 2 2 Alive Brother 3 Father (Age 77) Mother Other 1 Alive Other 2 Social History Tobacco Use Types Packs/Day Years Used Date Smoking Tobacco: Former Cigarettes Q uit: 1959 Smokeless Tobacco: Never Tobacco Cessation:Counseling Given: Not Answered Comments:Smoking History Packs/day: 2 Packs Alcohol Use Standard Drinks/Week Comments Yes 0 (1 standard drink = 0.6 oz pur e alcohol) Social Connection and Isolat ion Panel [NHANES] Answer Date Recorded In a typical week, how many times do you talk on the phone with family, friends, or neighbors? More than three times a week 04/12/2022 How often do you get togethe r with friends or relatives? More than three times a week 04/12/2022 How often do you attend [facility] or sabianism services? More than 4 times per year 04/12/2022 Do you belong to any clubs o r organizations such as pentecostalism groups, unions, fraternal or athletic groups, or school groups? No 04/12/2022 How often do you attend meet ings of the clubs or organizations you belong to? Never 04/12/2022 Are you , , di vorced, , never , or living with a partner? 04/12/2022 Overall Financial Resource Strain (CARDIA) Answe r Date Recorded How hard is it for you to pa y for the very basics like food, housing, medical care, and heating? Not hard at all 04/12/2022 PHQ-2 Answer Date Recorded PHQ-2 Total Score (If total score is 3 or more points, staff should administer the PHQ-9) 0 04/11/2022 Hunger Vital Sign Answer Date Recorded Within the past 12 months, y ou worried that your food would run out before you got the money to buy more. Never true 02/18/20 21 Within the past 12 months, t he food you bought just didn't last and you didn't have money to get more. Never true 02/17/2021 PRAPARE - Transportation Answer Date Re corded In the past 12 months, has l ack of transportation kept you from medical appointments or from getting medications? No 01/2022 In the past 12 months, has l ack of transportation kept you from meetings, work, or from getting things needed for daily living? No 04/12/2022 Housing Stability Vital Sign Answer Price e Recorded In the last 12 months, was t here a time when you were not able to pay the mortgage or rent on time? No 04/12/2022 In the last 12 months, how many places have you lived? 1 04/12/2022 In the last 12 months, was t here a time when you did not have a steady place to sleep or slept in a nursing home (including now)? No 04/12/2022 Personal Safety Answer Date Recorded Have you ever been in or are you currently in a harmful physical or emotional relationship or is someone making you feel afraid or unsafe? Denies 10/07/2023 Sex and Gender Information Value Date Recorded Sex Assigned at Not on file Legal Sex Male 10:40 AM RING SEWER Gender Identity Not on file Sexual Orientation Not on file Obstetrics History Last Filed Vital Signs Vital Sign Reading Time Taken Comments Blood Pressure 138/78 10/07/2023 9:00 PM CDT Pulse 70 10/07/2023 9:00 PM CDT Temperature 36.6 C (97.8 F) 10/07/2023 3:24 PM CDT Respiratory Rate 16 10/07/2023 9:00 PM CDT Oxygen Saturation 97% 10/07/2023 9:00 PM CDT Inhaled Oxygen Concentration - - Weight 68 kg (150 lb) 10/07/2023 3:24 PM CDT Height 170.2 cm (5' 7 ) 10/07/2023 3:24 PM CDT Body Mass Index 23.49 10/07/2023 3:24 PM CDT Plan of Treatment Health Maintenance Due Date Last Done Comments Hepatitis B Screening 1953 Zoster Vaccine (1 of 2) 1985 Depression Screening 04/11/2023 04/11/2022, 02/17/2021, 10/25/2018, Additional history exists Fall Risk Assessment 04/11/2023 04/11/2022, 02/17/2021, 10/25/2018, Additional history exists Well Visit 65+ 04/11/2023 04/11/2022, 08/28/2017 Covid-19 Vaccine (3 - 2023-2 5 season) 2024 12/05/2020, 11/14/2020 Influenza Vaccine (#1) 2024 , 03/01/2018, 03/06/2017, Additional history exists DTaP/Tdap/Td Vaccine (4 - Td or Tdap) 12/06/2031 12/05/2021, 01/08/2018, 04/28/2008 Pneumococcal vaccine 65+ Completed 018, 08/25/2015, 04/28/2008, Additional history exists Medical Devices Implanted Type Area Sealer Operator Device Identifier Shelf Expiration Date Model / Serial / Lot Icd-10/07/2016 Implanted:10/2016 by Alber Lynn MD (Quantity not on file) ICD Chest Wall [employer] Description:[employer] Sci DDD Inog en X4 [employer] CONSULTANT-D implanted on 10/07/16 for ICM/CHF/LBBB. [facility] Procedures Procedure Name Priority Date/Time Associated Diagnosis Comments DEVICE CHECK - REMOTE Routine 07/08/2024 11:23 AM RING SEWER Cardiomyopathy, ischemic from Last 3 Months Results * DEVICE CHECK - REMOTE (07/08/2024 11:23 AM RING SEWER) Anatomical Region Laterality Modality Other Narrative 07/18/2024 8:34 AM RING SEWER Table formatting from the original result was not included. BiV ICD CHECK (REMOTE) Patient ID: Дмитрий Shaw is a 89 y.o. male. This patient received a [employer] BiV ICD. They had a routine remote transmission on 07/08/2024 Device implant indications: Ischemic cardiomyopathy Interrogation of the patient's device demonstrates the following: Presenting EGM: A sensed Bi V paced @ 75 bpm Original Device Settings Right Atrium Right Ventricle Left Ventricle Sensitivity (mV) Auto mV Auto mV Auto mV Pacing Outputs 1.5 V @ 0.5 ms 2.0 V @ 0.5 ms 1.5 V @ 0.5 ms Testing Measurements Right Atrium Right Ventricle Left Ventricle Sensitivity (mV) 4.6 mV Not done mV Not done mV Impedence (Ohms) 469 ohms 399 ohms 680 ohms Pace Threshold Not done V @ ms Not done V @ ms Not done V @ ms Pacing % 38 % 96 % 96 % HV Lead Impedance N/A 67 ohms N/A Battery Status: 4.5 years to SYMONE, charge time 11.8 seconds. Episodes last 90 days/Comments: AF [place] less than 1 %, there were numerous episodes classified as AT/AF, the longest lasting 15 seconds, ventricular rates in the 70s, EGMs do show AT/AF. There were also numerous episodes classified as VT, there were 3 available EGMs for review to EGMs do show ventricular tachycardia self terminating longest stored episode is 13 seconds both had cycle lengths at 320 milliseconds. There were no treated ventricular arrhythmias noted on today's remote interrogation. NORMAL DEVICE FUNCTION PROGRAMMED MEDICATIONS: Anti-coagulant(s): None Anti-arrhythmic(s): None PLAN: 1) Nutricate BiV ICD evaluation 2) Nutricate remote transmission scheduled in 3 months. 3) Programming appropriate for device settings Ez M. Biermann, RN us Alber Lynn MD [facility] C[facility] PRO CEDURES Final Result from Last [address] [place] [id number] MEDICARE ANGÉLICA [address] [place] [address] [place] [phone] MEDICARE MEDICARE Care Teams Lead Software Engineer Relationship Specialty Start Date End Date Isabel Bowen MD [address] [address] PCP - General 09/02/16
--- OUTSIDE RECORDS SUMMARY | 2024-07-27 11:15 | XMS_ITS | Referral Summary ---
Author Organization [facility] Address [address] [place] [address] Care Team Providers Care Interior Horticulturist Name Role Phone Isabel Bowen MD Primary Care Provider [phone] Encounters Date Type Department Care Team Description 07/08/2024 Orders Only [facility] [address] [place] [id number] Alber Lynn MD Cardiomyopathy, ischemic (Primary Dx) 07/08/2024 12:15 PM INDUSTRIAL REFRIGERATION MECHANIC Ancillary Procedure [facility] [address] [place] [phone] ICD (implantable cardioverter-defibri llator), biventricular, in situ (Primary Dx); Cardiomyopathy, ischemic from Last 3 Months Allergies No known active allergies Medications cephalexin [...] 05/18/2021 Assessment & Plan (05/19/2021 3:47 PM INDUSTRIAL REFRIGERATION MECHANIC): Stable status post right carotid endarterectomy, asymptomatic. Continue same therapy. Continue diet and exercise. Right inguinal hernia 02/24/2021 Paroxysmal atrial fibrillation (CMS/HCC) 020 Assessment & Plan (05/19/2021 3:47 PM INDUSTRIAL REFRIGERATION MECHANIC): Stable, very brief PAF and nonsustained VT noted on ICD check only, asymptomatic. Continue same therapy. Assessment & Plan (05/05/2020 12:38 PM INDUSTRIAL REFRIGERATION MECHANIC): Stable, very brief PAF noted on ICD check only. Continue same therapy. VT (ventricular tachycardia) 05/05/2020 Assessment & Plan (05/05/2020 12:39 PM INDUSTRIAL REFRIGERATION MECHANIC): Very brief nonsustained VT noted on ICD [...] 01/31/2017 Assessment & Plan (05/19/2021 3:46 PM INDUSTRIAL REFRIGERATION MECHANIC): Stable, well compensated. Continue same therapy. Continue follow-up in the device clinic regarding his biventricular ICD. Assessment & Plan (05/05/2020 12:31 PM INDUSTRIAL REFRIGERATION MECHANIC): Stable, moderate-severe left ventricular dysfunction, well compensated. Continue same therapy. His ICD check today will be reviewed, and further recommendations forthcoming then. Continue same therapy. Continue follow-up in the device clinic as well. Assessment & Plan (04/30/2019 2:12 PM INDUSTRIAL REFRIGERATION MECHANIC): Stable, very well compensated. Continue same therapy. Continue follow-up in the device Clinic regarding his ICD. His ICD check today will be reviewed, and further recommendations forthcoming then. Assessment & Plan (04/24/2018 2:30 PM INDUSTRIAL REFRIGERATION MECHANIC): Stable, very well compensated. Continue same therapy. Assessment & Plan (02/01/2017 1:31 PM CDT): Stable, well compensated status post biventricular ICD. Continue same therapy. He will continue to follow up in the device clinic as well. 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 Leah Arnold Card Neuropathy 08/26/2016 Overview (10/28/2016): Neuropathy Coronary arteriosclerosis in [place] artery 10/19 Overview (09/09/2016): CRNRY ATHRSCL NATVE VSSL Assessment & Plan (05/19/2021 3:46 PM INDUSTRIAL REFRIGERATION MECHANIC): Stable, without angina. I made no change [...] standpoint. Assessment & Plan (05/05/2020 12:31 PM INDUSTRIAL REFRIGERATION MECHANIC): Stable, without angina. I made no change in his excellent medical regimen today. I asked him to follow up with me annually, or sooner if needed. I again advised him to diet and exercise regularly. Assessment & Plan (04/30/2019 2:12 PM INDUSTRIAL REFRIGERATION MECHANIC): Stable, without angina. I made no change in his excellent medical regimen today. I asked him to follow up with me annually, or sooner if needed. I again advised him to diet and exercise regularly. Assessment & Plan (04/24/2018 2:29 PM INDUSTRIAL REFRIGERATION MECHANIC): Stable, without angina. I made no change [...] NEC/NOS Assessment & Plan (05/19/2021 3:48 PM INDUSTRIAL REFRIGERATION MECHANIC): Lipids are well controlled. Continue high-intensity statin therapy. Assessment & Plan (05/05/2020 12:35 PM INDUSTRIAL REFRIGERATION MECHANIC): Lipids are well controlled. Continue high-intensity statin therapy. Assessment & Plan (04/30/2019 2:13 PM INDUSTRIAL REFRIGERATION MECHANIC): Lipids are well controlled. Continue high-intensity statin therapy. Assessment & Plan (10/25/2018 2:59 PM CDT): Patient has been off atorvastatin for some time. Will check cholesterol levels today before considering reinstatement of medication. Assessment & Plan (04/24/2018 2:31 PM INDUSTRIAL REFRIGERATION MECHANIC): Lipids are very well controlled. Continue high-intensity [...] disease invo lving coronary bypass graft of [place] heart without angina pectoris 08/28/2017 04/20/2018 Assessment & Plan (08/28/2017 12:01 PM CDT): Patient sees safety clothing and equipment developer once a year. He is on aspirin 81 mg, carvedilol 3.25 twice a day. Atorvastatin 40 mg once a day. Will checking labs. Denies any chest pain. Low vitamin B12 level 08/28/20172021 Assessment & Plan (08/28/2017 12:02 PM CDT): I will check B12 level as your taking B12 tablet once a day BMI 26.0-26.9,adult 08/28/2017 04/17/20 Assessment & Plan (10/25/2018 3:02 PM CDT): [...] 01/31/201704/17 Assessment & Plan (05/19/2021 3:47 PM INDUSTRIAL REFRIGERATION MECHANIC): Systolic pressure is high today, but is well controlled in general. Continue same therapy. Continue diet and exercise. Assessment & Plan (05/05/2020 12:32 PM INDUSTRIAL REFRIGERATION MECHANIC): Systolic pressure is high today, but is well controlled in general. Continue same therapy. Continue diet and exercise. Assessment & Plan (04/30/2019 2:13 PM INDUSTRIAL REFRIGERATION MECHANIC): Blood pressure is well controlled. Continue same therapy. Continue diet and exercise. Assessment & Plan (04/24/2018 2:30 PM INDUSTRIAL REFRIGERATION MECHANIC): Blood pressure is borderline today, but is [...] occlusion Assessment & Plan (05/05/2020 12:31 PM INDUSTRIAL REFRIGERATION MECHANIC): Stable status post right carotid endarterectomy, asymptomatic. Continue same therapy. Assessment & Plan (04/30/2019 2:12 PM INDUSTRIAL REFRIGERATION MECHANIC): Stable status post right carotid endarterectomy, asymptomatic. Continue same therapy. Continue diet and exercise. Assessment & Plan (04/24/2018 2:30 PM INDUSTRIAL REFRIGERATION MECHANIC): Stable, status post right carotid endarterectomy without symptoms. Continue same therapy. Continue diet and exercise. Assessment & Plan (02/01/2017 1:32 PM CDT): Stable, asymptomatic status post carotid endarterectomy. Continue follow-up with vascular surgery as well. Generalized anxiety disorder 10/19/2013 04/17/2022 Overview (09/07/2016): GENERALIZED ANXIETY DIS Gastroesophageal reflux disease 10/19/2013 08/28/2017 Overview (09/07/2016): ESOPHAGEAL REFLUX Atopic rhinitis 10/19/2013 03/01/2018 Overview (09/09/2016): ALLERGIC RHINITIS NOS Immunizations Immunization Administration Dates Next Due Influenza, Quadrivalent, Hig h Dose, Preservative Free, Intrr 04/11/2022 Influenza, Quadrivalent, Spl it, Preservative Free, Intramuscular 05/09/2013 Influenza, Split 05/11/2010 Influenza, Trivalent, High D ose, Split, Preservative Free, Intramuscular 03/01/2018,03/06/2017,06/05/2016,05/12,05/11/2015,03/05/2014,03/05/2013 ,03/05/2013 Influenza, Trivalent, IM (MDV) 3,04/07/2012,03/22/2012,04/02,04/14/2008,03/28/2003,03/06/2002 Pneumococcal Conjugate PCV 13 08/25/2015 Pneumococcal Polysaccharide PPV23 08/28/2017,,03/28/2003 Tdap 12/05/2021,01/08/2018,04/28/2008 Social History Tobacco Use Types Packs/Day Years [...] week 04/12/2022 How often do you attend chur ch or christian services? More than 4 times per year 04/12/2022 Do you belong to any clubs o r organizations such as jewish groups, unions, fraternal or athletic groups, or [...] place to sleep or slept in a long-term (including now)? No 04/12/2022 Personal Safety Answer Date Recorded Have you ever been in or are you currently in a harmful physical or emotional relationship or is someone making you feel afraid or unsafe? Denies 10/07/2023 Sex and Gender Information Value Date Recorded Sex Assigned at Not on file Legal Sex Male 10:40 AM INDUSTRIAL REFRIGERATION MECHANIC Gender Identity Not on file Sexual Orientation Not on file Last Filed Vital Signs Vital Sign Reading [...] 10/07/2023 3:24 PM CDT Plan of Treatment Not on file Medical Devices Implanted Type Area Quality Technician Fiberglass Device Identifier Shelf Expiration Date Model / Serial / Lot Icd-10/07/2016 Implanted:10/2016 by Alber Lynn MD (Quantity not on file) ICD Chest Wall [employer] C.R.M. Description:[employer] DDD Inog en X4 TRUCK ASSEMBLER-D implanted on 10/07/16 for ICM/CHF/LBBB. Leah - Melly Procedures Procedure Name Priority Date/Time Associated Diagnosis Comments DEVICE CHECK - REMOTE Routine 07/08/2024 11:23 AM INDUSTRIAL REFRIGERATION MECHANIC Cardiomyopathy, ischemic from Last 3 Months Results * DEVICE CHECK - REMOTE (07/08/2024 11:23 AM INDUSTRIAL REFRIGERATION MECHANIC) Anatomical Region Laterality Modality Other Narrative 07/18/2024 8:34 AM INDUSTRIAL REFRIGERATION MECHANIC Table formatting from the original result was not included. BiV ICD CHECK (REMOTE) Patient ID: Дмитрий Shaw is a 89 y.o. male. This patient received a [employer]ang [employer] BiV ICD. They had a routine remote [...] ohms N/A Battery Status: 4.5 years to [facility], charge time 11.8 seconds. Episodes last 90 days/Comments: AF [place] less than 1 %, there were numerous [...] MEDICATIONS: Anti-coagulant(s): None Anti-arrhythmic(s): None PLAN: 1) [employer] BiV ICD evaluation 2) [employer] remote transmission scheduled in 3 months. 3) Programming appropriate for device settings Ez Chavez, RN us Alber Lynn MD [facility] PRO CEDURES Final Result from Last 3 Months Insurance [place] [phone] MEDICARE Care Teams Interior Horticulturist Relationship Specialty Start Date End Date Isabel Bowen MD [address] [address] PCP - General 09/02/16
[2024-07-27] MEDS: BACITRACIN OINTMENT 15 GM TUBE 1 APPLIC (11:25)
--- NOTE | 2024-07-27 11:25 | PCCCNOTE ---
1125-Called to the pt's room to discuss home health orders. Spoke to the family, stated the PCP would follow for HHRN order and to reach out to them via Mychart or first thing on Monday for f/u care. Stated they have an apt on Monday anyway and will f/u at this time. Stated they have in home care givers and are happy with their current in home plan at this time. ED provider was updated on the status of this discussion.-patel
[2024-07-27 11:58] VITALS: BP 140/69; PULSE 71; RESP 21; O2SAT 98
[2024-07-27] MEDS: TETANUS,DIPHTHERIA,AC PERTUSSIS ADULT (0.5 ML) BOOSTRIX IM (12:25)
== END 2024-07-27 13:28 | disposition home or self-care (01) ==
PROVIDERS: Emergency Provider Student in an Organized Health Care Education/Training Program
DX: S51.012A Laceration without foreign body of left elbow, initial encounter (principal); Z23 Encounter for immunization; R29.6 Repeated falls; I10 Essential (primary) hypertension; E78.00 Pure hypercholesterolemia, unspecified; K21.9 Gastro-esophageal reflux disease without esophagitis; H26.9 Unspecified cataract; H54.7 Unspecified visual loss; Z95.0 Presence of cardiac pacemaker; Z95.1 Presence of aortocoronary bypass graft; Z87.891 Personal history of nicotine dependence; M19.022 Primary osteoarthritis, left elbow; W18.39XA Other fall on same level, initial encounter
CPT/HCPCS: 70450; 73070; 90471; 90715; 93005; 99284; A9270

== ENCOUNTER 2024-07-29 09:35 | Emergency (ER) | payer MEDICARE, SELFPAY ==
--- NOTE | ~2024-07-29 | XR_ITS ---
EXAMINATION: XR chest 1V portable DATE: 07/29/2024 10:53 INDICATION: Weakness. TECHNIQUE: A single frontal view of the chest was obtained. COMPARISON: Chest single view 11/28/2023, chest 2 views 11/07/2013 FINDINGS: There is a large hiatal hernia. A calcified left lung nodule and calcified mediastinal lymp h nodes are consistent with old granulomatous disease. There is mild scarring at right lung apex. The re is mild linear scarring in right midlung zone. No pleural effusion or pneumothorax. The heart size is normal. There is a left chest pacer with leads in right atrium, right ventricle, and coronary sin us. Median sternotomy wires and mediastinal surgical clips are seen, likely from prior coronary arter y bypass grafting. There is a chronic sclerotic lesion in proximal left humerus, which may be an ench ondroma or osteonecrosis. IMPRESSION: 1. Large hiatal hernia. 2. Mild scarring in right lung. Reviewed, dictated and finalized at location A. SAMPLER
[2024-07-29 09:36] VITALS: BP 144/64; PULSE 84; RESP 16; TEMP 36.6; O2SAT 95
--- NOTE | 2024-07-29 09:54 | ECG_ITS ---
Test Date: 2024-07-29 10:38:26 Measurements Intervals [place] Rate: 84 P: 26 WA: 120 QRS: 235 QRSD: 133 T: 42 QT: 412 QTc: 487 Interpretive Statements ATRIAL SENSE- ELECTRONIC VENTRICULAR PACEMAKER VENTRICULAR PREMATURE COMPLEXES BASELINE ARTIFACT- I, II, III, AVR, AVL, AVF, V1-V6 NO FURTHER INTERPRETATION IS POSSIBLE ATYPICAL ECG Compared to ECG 07/27/2024 12:31:30 No significant changes Electronically Signed On 07-29-2024 10:44:20 PEST CONTROL OPERATOR by Govind Wilson D.O.
--- NOTE | 2024-07-29 10:10 | ED_ITS ---
HPI - Weakness General Chief complaint: Weakness Stated complaint: weakness Time Seen by Provider: 07/29/24 09:40 History of Present Illness HPI Narrative: 89-year-old male with history of hypertension, GERD, hypercholesterolemia s/p pacemaker placement presents to the ED via EMS from home. Patient reportedly pressed his Life Alert bracelet to contact EMS. When asked why he called EMS he states ?I do not know I just needed help?. He is unable to elaborate what he needed help with. His daughter is at bedside to my evaluation and states she believes he called because he could not get out of his chair. EMS was concerned because the patient was at home by himself and apparently has a feather drying machine operator that was supposed to arrive at 9:00 a.m. and was not at the house. Per family at bedside, the feather drying machine operator comes every day from 10:00 a.m. to 8:00 p.m. and has been showing up to the house as scheduled. The patient was seen in our emergency department 2 days ago for a fall and obtained large skin tear to his left elbow, unremarkable elbow x-ray and CT of the head. He was discharged home. Apparently yesterday the patient also pressed his Life Alert bracelet for unknown reasons, he was not transported to the ED per family recommendations after they evaluated the patient. The patient denies any complaints other than ?feeling bad?. He denies headache, vision changes, focal numbness or weakness, chest pain or shortness of breath, abdominal pain, dysuria hematuria fever, cough or congestion. His left elbow skin tear remains in a wrapped bandage that has not been changed since his visit 2 days ago per the patient. Related Data Allergies Allergy/AdvReac Type Severity Reaction Status Date / Time No Known Allergies Allergy Verified 11/28/23 13:55 Review of Systems 2 Review of Systems: All systems reviewed & are unremarkable except as noted in HPI and below PMFSH Past Medical History Medical History Depression GERD (gastroesophageal reflux disease) Hypertension Irregular heartbeat Hypercholesterolemia Pacemaker FH: cataracts Left Far-sighted Nearsightedness Family history of head, eyes, ears, nose, and throat (HEENT) problems Detached retina right eye Surgical History Surgical History Aortocoronary bypass status Bypass surgery with graft 2017 Social History Social History Smoking status: Former smoker Alcohol intake: former Exam 2 Narrative: GENERAL: Frail elderly male lying in exam bed, NAD HEAD: Normocephalic, atraumatic. EYES: PERRLA and EOMI. ENT: Nares clear, no rhinorrhea or epistaxis. Mucous membranes moist. NECK: Supple. CHEST: Clear to auscultation. No respiratory distress. HEART: Regular rate and rhythm. No murmur heard. Normal peripheral pulses. ABDOMEN: Soft, nontender, nondistended, normal active bowel sounds. EXTREMITIES: Normal range of motion. No edema. SKIN: Large skin tear over the left elbow with surrounding ecchymosis, thick yellow biofilm to the base of the wound with epidermis stretched over the exposed dermis. No warmth or erythema. Full active and passive ROM. Stage I pressure ulcer to the sacrum NEURO: No focal deficits. Alert and oriented x3 Course Vital Signs Vital signs: Vital Signs Temperature 97.8 F 07/29/24 09:36 Pulse Rate 84 07/29/24 09:36 Respiratory Rate 16 07/29/24 09:36 Blood Pressure 144/64 H 07/29/24 09:36 Pulse Oximetry 95 07/29/24 09:36 Oxygen Delivery Room Air 07/29/24 09:36 Temperature 97.8 F 07/29/24 09:36 Pulse Rate 75 07/29/24 11:18 Respiratory Rate 23 H 07/29/24 11:18 Blood Pressure 129/64 07/29/24 11:18 Pulse Oximetry 98 07/29/24 11:18 Oxygen Delivery Room Air 07/29/24 09:36 MDM - Weakness MDM Narrative Medical decision making narrative: 89-year-old male presents to the ED via EMS as detailed in HPI. Vitals are stable. Exam is significant for the above. Lab work shows no leukocytosis or anemia. Chemistries are largely unremarkable. CK is mildly elevated to 23, fluids provided. UA without infection. Viral swabs are negative. Lactic within normal limits. Chest x-ray shows large hernia and mild scarring in the right lung. EKG with findings consistent with pacemaker with a rate of 84 bpm. Wound care consulted who evaluated patient has large skin tear of the left elbow. Advised a skin flap will declare itself and follow-up with time, no debridement is necessary. Agree there are no signs or symptoms of infection noted to the surrounding tissue. Vaseline gauze and dressing applied. Patient and family updated on results. Discussed goals of care as patient seems unfit to care for himself for the 14 hours a day his feather drying machine operator is not with him. They agree to care coordination consult for adult failure to thrive. Care coordination consulted who is trying to place pt at [facility]. Was told by [place] staff bed will likely not be available until tomorrow. Family would like to take patient home in while awaiting bed. The patient has an apt with his PCP tomorrow at 9am which I encouraged them to attend. They agree to monitor the patient 26/12 and understand he is unfit to care for himself independently. Discussed return precautions. They were given instructions and supplies for wound care. They are agreeable with the plan verbalized understanding. Discharged in stable condition. Lab Data 07/29/24 10:34 07/29/24 10:34 Labs: Lab Results 07/29/24 07/29/24 07/29/24 Range/Units 10:34 10:36 11:05 WBC 7.4 (4.5-10.0) K/mm3 RBC 4.75 (4.6-6.20) M/mm3 Hgb 14.4 (14.0-18.0) g/dL Hct 44.1 (42.0-52.0) % MCV 92.8 (80-100) fl MCH 30.3 (26-34) pg MCHC 32.7 (32-36) g/dl RDW 14.6 H (11.5-14.5) % Plt Count 173 (150-375) k/mm3 MPV 9.8 (7.4-10.4) fl Immature Gran % (Auto) 0.4 (0-0.5) % Neut % (Auto) 71.6 (45.5-73.1) % Lymph % (Auto) 14.2 L (18.3-44.2) % [place] % (Auto) 10.8 H (2.6-8.5) % Eos % (Auto) 2.6 (0-4.4) % Baso % (Auto) 0.4 (0.2-1.2) % Lymph # (Auto) 1.05 (0.9-3.2) K/mm3 [place] # (Auto) 0.8 H (0.1-0.6) K/mm3 Eos # (Auto) 0.2 (0-0.3) K/mm3 Baso # (Auto) 0.0 (0.0-0.1) K/mm3 Abs Immat Gran (auto) 0.03 (0.00-0.031) K/mm3 Absolute Neuts (auto) 5.3 (1.3-6.7) K/mm3 Absolute Nucleated RBC 0.000 (0.0-0.012) K/mm3 Nucleated RBC % 0.0 (0.0-0.2) % Sodium 138 (137-145) mmol/L Potassium 3.8 (3.4-5.0) mmol/L Chloride 103 (98-107) mmol/L Carbon Dioxide 28 (22-30) mmol/L Anion Gap 7 (4-12) mmol/L BUN 14 (9-20) mg/dL Creatinine 0.74 (0.7-1.3) mg/dL Estim Creat Clear Calc 55 ml/min Estimated GFR > 60 (59 - ) Glucose 89 (65-110) mg/dL Lactic Acid 1.1 (0.7-2.0) mmol/L Calcium 8.7 (8.4-10.2) mg/dL Magnesium 2.0 (1.6-2.3) mg/dL Total Bilirubin 2.0 H (0.2-1.3) mg/dL AST 24 (17-59) U/L ALT 14 (6-50) U/L Alkaline Phosphatase 121 (38-126) U/L Total Creatine Kinase 223 H (55-170) U/L Total Protein 7.0 (6.3-8.2) g/dL Albumin 3.3 L (3.5-5.1) g/dL Urine Color Dark yellow (Yellow) Urine Appearance Clear (Clear) Urine pH 5.5 (5.0-9.0) Ur Specific [place] 1.022 (1.001-1.035) Urine Protein 1+ H (Negative) mg/dL Urine Glucose (UA) Negative (Negative) mg/dL Urine Ketones Trace H (Negative) mg/dL Ur Blood (Man) Negative (Negative) Urine Nitrate Negative (Negative) Urine Bilirubin Negative (Negative) Urine Urobilinogen 1.0 (<2.0) mg/dL Add Ur Microanalysis Reviewed Leukocyte Esterase Rfl Negative (Negative) ARACELI/UL Urine RBC 0-2 (0-2) /hpf Urine WBC 0-5 (0-3) /hpf Ur Squamous Epith Cells None seen (Few) /hpf Urine Bacteria None seen /hpf Urine Casts 0-2 Influenza A (RT-PCR) Negative (Negative) Influenza B (RT-PCR) Negative (Negative) RSV (RT-PCR) Negative (Negative) SARS-CoV-2 RNA (RT-PCR) Negative (Negative) Discharge Plan Discharge Clinical Impression: Adult failure to thrive, Skin tear Patient Disposition: Home, Self-Care Condition: Stable Instructions: Antibiotic Form, Failure to Thrive in Older Adults (ED), Skin Tear (ED) Additional Instructions: Please strange the dressings at least once daily or sooner if the dressing becomes saturated. Please continue to work on placement for the patient at [facility]. He is not safe to be alone. He is unfit to care for himself. Please make sure he has someone with him at all times to assist with care. Return to the emergency department if he develops fever, surrounding redness or warmth to his wound, or other concerning symptoms. Patient Language: Turkish Prescriptions: No Action bacitracin 500 unit/gram ointment 1 applic topical Q8H Qty: 30 0RF cephalexin 500 mg capsule 500 mg PO Q8H 7 Days Qty: 21 0RF cephalexin 500 mg capsule 500 mg PO Q8H 7 Days Qty: 21 0RF Follow-up/Referrals: UNKNOWN,DOCTOR [Primary Care Provider] -
[2024-07-29 10:42] LABS: Basophils Percent Auto 0.4 % (0.2-1.2); Eosinophils Absolute Auto 0.2 K/mm3 (0-0.3); Eosinophils Percent Auto 2.6 % (0-4.4); Hematocrit 44.1 % (42.0-52.0); Hemoglobin 14.4 g/dL (14.0-18.0); Immature Granulocyte Absolute 0.03 K/mm3 (0.00-0.031); Immature Granulocyte Percent A 0.4 % (0-0.5); Lymphocytes Absolute Auto 1.05 K/mm3 (0.9-3.2); Lymphocytes Percent Auto 14.2 % (18.3-44.2); Mean Corpuscular HGB Conc 32.7 g/dl (32-36); Mean Corpuscular Hemoglobin 30.3 pg (26-34); Mean Corpuscular Volume 92.8 fl (80-100); Mean Platelet Volume 9.8 fl (7.4-10.4); Monocytes Absolute Auto 0.8 K/mm3 (0.1-0.6); Monocytes Percent Auto 10.8 % (2.6-8.5); Neutrophils Absolute Auto 5.3 K/mm3 (1.3-6.7); Neutrophils Percent Auto 71.6 % (45.5-73.1); Platelet Count Result 173 k/mm3 (150-375); Red Blood Count 4.75 M/mm3 (4.6-6.20); Red Cell Distribution Width 14.6 % (11.5-14.5); White Blood Count 7.4 K/mm3 (4.5-10.0)
[2024-07-29 10:54] LABS: Lactic Acid Reflex 1.1 mmol/L (0.7-2.0)
[2024-07-29 10:55] LABS: Alanine Aminotransferase 14 U/L (6-50); Albumin Level 3.3 g/dL (3.5-5.1); Alkaline Phosphatase 121 U/L (38-126); Anion Gap 7 mmol/L (4-12); Aspartate Amino Transferase 24 U/L (17-59); Blood Urea Nitrogen 14 mg/dL (9-20); Calcium 8.7 mg/dL (8.4-10.2); Carbon Dioxide 28 mmol/L (22-30); Chloride 103 mmol/L (98-107); Creatine Kinase 223 U/L (55-170); Estimated CRCL calculation 55 ml/min; Estimated Glomerular Filt Rate > 60; Glucose 89 mg/dL (65-110); Potassium 3.8 mmol/L (3.4-5.0); Sodium 138 mmol/L (137-145)
[2024-07-29 11:18] VITALS: BP 129/64; PULSE 75; RESP 23; O2SAT 98
[2024-07-29 11:18] LABS: Influenza A QL RT-PCR Negative (Negative); Influenza B QL RT-PCR Negative (Negative); RSV RNA, RT-PCR Negative (Negative); SARS-CoV-2 RNA PCR Negative (Negative)
--- OUTSIDE RECORDS SUMMARY | 2024-07-29 11:23 | XMS_ITS | Referral Summary ---
Author Organization [facility] Address [address] [place] [address] Care Team Providers Care Obstetrics Gynecology Physician Name Role Phone Isabel Bowen MD Primary Care Provider [phone] Encounters Date Type Department Care Team Description 07/08/2024 Orders Only [facility] [address] [place] [phone] Alber Lynn MD Cardiomyopathy, ischemic (Primary Dx) 07/08/2024 12:15 PM RADIO INSTALLER Ancillary Procedure [facility] [address] [place] [phone] ICD (implantable cardioverter-defibri llator), biventricular, in [...] 05/18/2021 Assessment & Plan (05/19/2021 3:47 PM RADIO INSTALLER): Stable status post right carotid endarterectomy, asymptomatic. Continue same therapy. Continue diet and exercise. Right inguinal hernia 02/24/2021 Paroxysmal atrial fibrillation (CMS/HCC) 020 Assessment & Plan (05/19/2021 3:47 PM RADIO INSTALLER): Stable, very brief PAF and nonsustained VT noted on ICD check only, asymptomatic. Continue same therapy. Assessment & Plan (05/05/2020 12:38 PM RADIO INSTALLER): Stable, very brief PAF noted on ICD check only. Continue same therapy. VT (ventricular tachycardia) 05/05/2020 Assessment & Plan (05/05/2020 12:39 PM RADIO INSTALLER): Very brief nonsustained VT noted on ICD [...] 01/31/2017 Assessment & Plan (05/19/2021 3:46 PM RADIO INSTALLER): Stable, well compensated. Continue same therapy. Continue follow-up in the device clinic regarding his biventricular ICD. Assessment & Plan (05/05/2020 12:31 PM RADIO INSTALLER): Stable, moderate-severe left ventricular dysfunction, well compensated. Continue same therapy. His ICD check today will be reviewed, and further recommendations forthcoming then. Continue same therapy. Continue follow-up in the device clinic as well. Assessment & Plan (04/30/2019 2:12 PM RADIO INSTALLER): Stable, very well compensated. Continue same therapy. Continue follow-up in the device Clinic regarding his ICD. His ICD check today will be reviewed, and further recommendations forthcoming then. Assessment & Plan (04/24/2018 2:30 PM RADIO INSTALLER): Stable, very well compensated. Continue same therapy. Assessment & Plan (02/01/2017 1:31 PM CDT): Stable, well compensated status post biventricular ICD. Continue same therapy. He will continue to follow up in the device clinic as well. ICD (implantable cardioverte r-defibrillator), biventricular, in situ 01/09/2017 Overview (08/29/2017): [employer] Inogen X4 HEALTH AND SAFETY DIRECTOR-D implanted on 10/07/16 for ICM/CHF/LBBB. Leah Arnold Card Neuropathy 08/26/2016 Overview (10/28/2016): Neuropathy Coronary arteriosclerosis in [place] artery 10/19 Overview (09/09/2016): CRNRY ATHRSCL NATVE VSSL Assessment & Plan (05/19/2021 3:46 PM RADIO INSTALLER): Stable, without angina. I made no change [...] standpoint. Assessment & Plan (05/05/2020 12:31 PM RADIO INSTALLER): Stable, without angina. I made no change in his excellent medical regimen today. I asked him to follow up with me annually, or sooner if needed. I again advised him to diet and exercise regularly. Assessment & Plan (04/30/2019 2:12 PM RADIO INSTALLER): Stable, without angina. I made no change in his excellent medical regimen today. I asked him to follow up with me annually, or sooner if needed. I again advised him to diet and exercise regularly. Assessment & Plan (04/24/2018 2:29 PM RADIO INSTALLER): Stable, without angina. I made no change [...] NEC/NOS Assessment & Plan (05/19/2021 3:48 PM RADIO INSTALLER): Lipids are well controlled. Continue high-intensity statin therapy. Assessment & Plan (05/05/2020 12:35 PM RADIO INSTALLER): Lipids are well controlled. Continue high-intensity statin therapy. Assessment & Plan (04/30/2019 2:13 PM RADIO INSTALLER): Lipids are well controlled. Continue high-intensity statin therapy. Assessment & Plan (10/25/2018 2:59 PM CDT): Patient has been off atorvastatin for some time. Will check cholesterol levels today before considering reinstatement of medication. Assessment & Plan (04/24/2018 2:31 PM RADIO INSTALLER): Lipids are very well controlled. Continue high-intensity [...] disease invo lving coronary bypass graft of [place] heart without angina pectoris 08/28/2017 04/20/2018 Assessment & Plan (08/28/2017 12:01 PM CDT): Patient sees bituminous paving machine operator once a year. He is on aspirin [...] 01/31/201704/17 Assessment & Plan (05/19/2021 3:47 PM RADIO INSTALLER): Systolic pressure is high today, but is well controlled in general. Continue same therapy. Continue diet and exercise. Assessment & Plan (05/05/2020 12:32 PM RADIO INSTALLER): Systolic pressure is high today, but is well controlled in general. Continue same therapy. Continue diet and exercise. Assessment & Plan (04/30/2019 2:13 PM RADIO INSTALLER): Blood pressure is well controlled. Continue same therapy. Continue diet and exercise. Assessment & Plan (04/24/2018 2:30 PM RADIO INSTALLER): Blood pressure is borderline today, but is [...] occlusion Assessment & Plan (05/05/2020 12:31 PM RADIO INSTALLER): Stable status post right carotid endarterectomy, asymptomatic. Continue same therapy. Assessment & Plan (04/30/2019 2:12 PM RADIO INSTALLER): Stable status post right carotid endarterectomy, asymptomatic. Continue same therapy. Continue diet and exercise. Assessment & Plan (04/24/2018 2:30 PM RADIO INSTALLER): Stable, status post right carotid endarterectomy without [...] often do you attend chur ch or zoroastrian services? More than 4 times per year 04/12/2022 Do you belong to any clubs o r organizations such as zoroastrianism groups, unions, fraternal or athletic groups, or [...] more points, staff should administer the PHQ-9) 6 07/27/2024 Hunger Vital Sign Answer Date Recorded Within [...] place to sleep or slept in a mcc (including now)? No 04/12/2022 Personal Safety Answer Date Recorded Have you ever been in or are you currently in a harmful physical or emotional relationship or is someone making you feel afraid or unsafe? Denies 10/07/2023 Sex and Gender Information Value Date Recorded Sex Assigned at Not on file Legal Sex Male 10:40 AM RADIO INSTALLER Gender Identity Not on file Sexual Orientation [...] on file Medical Devices Implanted Type Area Gathering Machine Setter Device Identifier Shelf Expiration Date Model / Serial / Lot Icd-10/07/2016 Implanted:10/2016 by Alber Lynn MD (Quantity not on file) ICD Chest Wall [employer] C.R.M. Description:[employer] DDD Inog en X4 HEALTH AND SAFETY DIRECTOR-D implanted on 10/07/16 for ICM/CHF/LBBB. Leah - Melly Procedures Procedure Name Priority Date/Time Associated Diagnosis Comments DEVICE CHECK - REMOTE Routine 07/08/2024 11:23 AM RADIO INSTALLER Cardiomyopathy, ischemic from Last 3 Months Results * DEVICE CHECK - REMOTE (07/08/2024 11:23 AM RADIO INSTALLER) Anatomical Region Laterality Modality Other Narrative 07/18/2024 8:34 AM RADIO INSTALLER Table formatting from the original result was not included. BiV ICD CHECK (REMOTE) Patient ID: Дмитрий Shaw is a 89 y.o. male. This patient received a [employer] BiV ICD. They had a routine [...] ohms N/A Battery Status: 4.5 years to [facility], charge time 11.8 seconds. Episodes last 90 days/Comments: AF [place] less than 1 %, there were numerous [...] MEDICATIONS: Anti-coagulant(s): None Anti-arrhythmic(s): None PLAN: 1) [employer] BiV ICD evaluation 2) [employer] remote transmission scheduled in 3 months. 3) Programming appropriate for device settings Ez Chavez, RN us Alber Lynn MD CV CARDIAC SERVICES PRO CEDURES Final Result from Last 3 Months Insurance [place] [phone] MEDICARE Care Teams Obstetrics Gynecology Physician Relationship Specialty Start Date End Date Isabel Bowen MD [address] [address] PCP - General 09/02/16
--- OUTSIDE RECORDS SUMMARY | 2024-07-29 11:23 | XMS_ITS | Clinical Summary ---
Author Organization [facility] Address [address] [place] [address] Care Team Providers Care Line Service Person Name Role Phone Isabel Bowen MD Primary Care Provider [phone] Allergies No known active allergies Medications cephalexin [...] 05/18/2021 Assessment & Plan (05/19/2021 3:47 PM SURFACE BOSS): Stable status post right carotid endarterectomy, asymptomatic. Continue same therapy. Continue diet and exercise. Right inguinal hernia 02/24/2021 Paroxysmal atrial fibrillation (CMS/HCC) 020 Assessment & Plan (05/19/2021 3:47 PM SURFACE BOSS): Stable, very brief PAF and nonsustained VT noted on ICD check only, asymptomatic. Continue same therapy. Assessment & Plan (05/05/2020 12:38 PM SURFACE BOSS): Stable, very brief PAF noted on ICD check only. Continue same therapy. VT (ventricular tachycardia) 05/05/2020 Assessment & Plan (05/05/2020 12:39 PM SURFACE BOSS): Very brief nonsustained VT noted on ICD [...] 01/31/2017 Assessment & Plan (05/19/2021 3:46 PM SURFACE BOSS): Stable, well compensated. Continue same therapy. Continue follow-up in the device clinic regarding his biventricular ICD. Assessment & Plan (05/05/2020 12:31 PM SURFACE BOSS): Stable, moderate-severe left ventricular dysfunction, well compensated. Continue same therapy. His ICD check today will be reviewed, and further recommendations forthcoming then. Continue same therapy. Continue follow-up in the device clinic as well. Assessment & Plan (04/30/2019 2:12 PM SURFACE BOSS): Stable, very well compensated. Continue same therapy. Continue follow-up in the device Clinic regarding his ICD. His ICD check today will be reviewed, and further recommendations forthcoming then. Assessment & Plan (04/24/2018 2:30 PM SURFACE BOSS): Stable, very well compensated. Continue same therapy. Assessment & Plan (02/01/2017 1:31 PM CDT): Stable, well compensated status post biventricular ICD. Continue same therapy. He will continue to follow up in the device clinic as well. ICD (implantable cardioverte r-defibrillator), biventricular, in situ 01/09/2017 Overview (08/29/2017): [employer] Inogen X4 SHAFT TENDER-D implanted on 10/07/16 for ICM/CHF/LBBB. Leah Pickard-Irina Card Neuropathy 08/26/2016 Overview (10/28/2016): Neuropathy Coronary arteriosclerosis in [place] artery 10/19 Overview (09/09/2016): CRNRY ATHRSCL ELIZABETH VSSL Assessment & Plan (05/19/2021 3:46 PM SURFACE BOSS): Stable, without angina. I made no change [...] standpoint. Assessment & Plan (05/05/2020 12:31 PM SURFACE BOSS): Stable, without angina. I made no change in his excellent medical regimen today. I asked him to follow up with me annually, or sooner if needed. I again advised him to diet and exercise regularly. Assessment & Plan (04/30/2019 2:12 PM SURFACE BOSS): Stable, without angina. I made no change in his excellent medical regimen today. I asked him to follow up with me annually, or sooner if needed. I again advised him to diet and exercise regularly. Assessment & Plan (04/24/2018 2:29 PM SURFACE BOSS): Stable, without angina. I made no change [...] NEC/NOS Assessment & Plan (05/19/2021 3:48 PM SURFACE BOSS): Lipids are well controlled. Continue high-intensity statin therapy. Assessment & Plan (05/05/2020 12:35 PM SURFACE BOSS): Lipids are well controlled. Continue high-intensity statin therapy. Assessment & Plan (04/30/2019 2:13 PM SURFACE BOSS): Lipids are well controlled. Continue high-intensity statin therapy. Assessment & Plan (10/25/2018 2:59 PM CDT): Patient has been off atorvastatin for some time. Will check cholesterol levels today before considering reinstatement of medication. Assessment & Plan (04/24/2018 2:31 PM SURFACE BOSS): Lipids are very well controlled. Continue high-intensity [...] disease invo lving coronary bypass graft of [place] heart without angina pectoris 08/28/2017 04/20/2018 Assessment & Plan (08/28/2017 12:01 PM CDT): Patient sees electrocardiogram technician once a year. He is on aspirin [...] 01/31/201704/17 Assessment & Plan (05/19/2021 3:47 PM SURFACE BOSS): Systolic pressure is high today, but is well controlled in general. Continue same therapy. Continue diet and exercise. Assessment & Plan (05/05/2020 12:32 PM SURFACE BOSS): Systolic pressure is high today, but is well controlled in general. Continue same therapy. Continue diet and exercise. Assessment & Plan (04/30/2019 2:13 PM SURFACE BOSS): Blood pressure is well controlled. Continue same therapy. Continue diet and exercise. Assessment & Plan (04/24/2018 2:30 PM SURFACE BOSS): Blood pressure is borderline today, but is [...] occlusion Assessment & Plan (05/05/2020 12:31 PM SURFACE BOSS): Stable status post right carotid endarterectomy, asymptomatic. Continue same therapy. Assessment & Plan (04/30/2019 2:12 PM SURFACE BOSS): Stable status post right carotid endarterectomy, asymptomatic. Continue same therapy. Continue diet and exercise. Assessment & Plan (04/24/2018 2:30 PM SURFACE BOSS): Stable, status post right carotid endarterectomy without [...] Department Care Team Description 07/08/2024 12:15 PM SURFACE BOSS Ancillary Procedure [facility] [address] [place] [phone] ICD (implantable cardioverter-defibri llator), biventricular, in situ (Primary Dx); Cardiomyopathy, ischemic 07/08/2024 Orders Only [facility] [address] [place] [phone] Alber Lynn MD Cardiomyopathy, ischemic (Primary [...] week 04/12/2022 How often do you attend [facility] or hinduism services? More than 4 times per year 04/12/2022 Do you belong to any clubs o r organizations such as worship groups, unions, fraternal or athletic groups, or [...] place to sleep or slept in a fdc (including now)? No 04/12/2022 Personal Safety Answer Date Recorded Have you ever been in or are you currently in a harmful physical or emotional relationship or is someone making you feel afraid or unsafe? Denies 10/07/2023 Sex and Gender Information Value Date Recorded Sex Assigned at Not on file Legal Sex Male 10:40 AM SURFACE BOSS Gender Identity Not on file Sexual Orientation [...] history exists Medical Devices Implanted Type Area Tool Crib Attendant Device Identifier Shelf Expiration Date Model / Serial / Lot Icd-10/07/2016 Implanted:10/2016 by Alber Lynn MD (Quantity not on file) ICD Chest Wall [employer] C.R.M. Description:[employer] DDD Inog en X4 SHAFT TENDER-D implanted on 10/07/16 for ICM/CHF/LBBB. [facility] Procedures Procedure Name Priority Date/Time Associated Diagnosis Comments DEVICE CHECK - REMOTE Routine 07/08/2024 11:23 AM SURFACE BOSS Cardiomyopathy, ischemic from Last 3 Months Results * DEVICE CHECK - REMOTE (07/08/2024 11:23 AM SURFACE BOSS) Anatomical Region Laterality Modality Other Narrative 07/18/2024 8:34 AM SURFACE BOSS Table formatting from the original result was not included. BiV ICD CHECK (REMOTE) Patient ID: Дмитрий Shaw is a 89 y.o. male. This patient received a [employer] BiV ICD. They had a routine remote [...] 11.8 seconds. Episodes last 90 days/Comments: AF [place] less than 1 %, there were numerous [...] MEDICATIONS: Anti-coagulant(s): None Anti-arrhythmic(s): None PLAN: 1) [employer] BiV ICD evaluation 2) [employer] remote transmission scheduled in 3 months. 3) Programming appropriate for device settings Ez M. Biermann, RN us Alber Lynn MD CV CARDIAC SERVICES PRO CEDURES Final Result from Last [address] [place] [id number] MEDICARE ANGÉLICA [address] [place] [id number] [place] [id number] MEDICARE MEDICARE Care Teams Line Service Person Relationship Specialty Start Date End Date Isabel Bowen MD [address] [address] PCP - General 09/02/16
--- OUTSIDE RECORDS SUMMARY | 2024-07-29 11:23 | XMS_ITS | Encounter Summary ---
Author Organization [facility] Address [address] [place] [address] Phone Care Team Providers Care Hydraulic Press Servicer Name Role Phone Isabel Bowen MD Primary Care Provider [phone] Nichol Montes HOSPICE CARE SALES CONSULTANT Unavailable [phone] Dia Richards HOSPICE CARE SALES CONSULTANT Unavailable [phone] Encounter Details Date Type Department Care Team (Late st Contact Info) Description 08/28/[address] [facility] ProviderEz MD [address] [place] [address] Social History Tobacco Use Types Packs/Day Years Used Date Smoking Tobacco: Former Cigarettes Q uit: 1959 Smokeless Tobacco: Never Comments:Smoking History Pac ks/day: 2 Packs Alcohol Use Standard Drinks/Week Comments Yes 0 (1 standard drink = 0.6 oz pur e alcohol) Sex and Gender Information Value Date Recorded Sex Assigned at Not on file Legal Sex Male 10:40 AM TIMBER APPRAISER Gender Identity Not on file Sexual Orientation [...] documented as of this encounter Care Teams Hydraulic Press Servicer Relationship Specialty Start Date End Date Isabel Bowen MD [address] [facility] [address], [place] [id number] PCP - General 09/02/16 Nichol Montes, HOSPICE CARE SALES CONSULTANT [address] [place], [place] [id number] Surgical Nurse Stationary Steam Engineer 02/17/21 02/21/21 Dia Richards, HOSPICE CARE SALES CONSULTANT [address] [place] [address] Surgical Nurse 04/12/22 05/16/22 documented as of this encounter
[2024-07-29] MEDS: SODIUM CHLORIDE 0.9% IV 1,000 ML 999 ML IV CONT (11:24)
[2024-07-29 11:33] LABS: Add Urine Microscopic? YES; Appearance Urine Clear (Clear); Bacteria Urine None Seen /hpf; Bilirubin Urine Negative (Negative); Blood Urine Negative (Negative); Color Urine Dark Yellow (Yellow); Glucose Urine UA Negative (Negative); Ketones Urine Trace mg/dL (Negative); Leukocyte Esterase Ur Negative LEU/UL (Negative); Need Manual Microscopic Reviewed; Nitrate Urine Negative (Negative); Non Pathogenic Casts 0-2; Protein Urine 1+ mg/dL (Negative); RBC Urine 0-2 /hpf (0-2); Specific Grav Ur 1.022 (1.001-1.035); Squamous Epithelial Cell Urine None Seen /hpf (Few); WBC Urine 0-5 /hpf (0-3); pH Urine 5.5 (5.0-9.0)
[2024-07-29 12:15] VITALS: BP 138/83; PULSE 84; RESP 23; O2SAT 97
--- NOTE | 2024-07-29 12:40 | PCCCNOTE ---
Called to speak with family about possible placement. Pt has home health 10 hours a day, but they feel like he is needing 24 hour care. They would prefer [facility]. I spoke with Levy at [facility], she said they probably would not have a bed ready until tomorrow and family would have to fill out an application. Family has stepped out of the ED at this time. I will give them her information when the return. I did fax the referral to [facility].
[2024-07-29 13:15] VITALS: BP 127/64; PULSE 83; RESP 23; TEMP 36.8; O2SAT 98
== END 2024-07-29 13:40 | disposition home or self-care (01) ==
PROVIDERS: Emergency Medicine; Emergency Provider Physician Assistant
DX: R62.7 Adult failure to thrive (principal); S51.012D Laceration without foreign body of left elbow, subsequent encounter; Z20.822 Contact with and (suspected) exposure to COVID-19; I10 Essential (primary) hypertension; E78.00 Pure hypercholesterolemia, unspecified; K21.9 Gastro-esophageal reflux disease without esophagitis; H26.9 Unspecified cataract; Z95.0 Presence of cardiac pacemaker; Z95.1 Presence of aortocoronary bypass graft; Z87.891 Personal history of nicotine dependence; W19.XXXD Unspecified fall, subsequent encounter; I49.3 Ventricular premature depolarization
CPT/HCPCS: 36415; 71045; 80053; 81001; 82550; 83605; 83735; 85025; 87040; 87637; 93005; 96360; 99283; J7030

== ENCOUNTER 2024-08-25 08:13 | Emergency (ER) | payer MEDICARE, SELFPAY ==
[2024-08-25 08:14] VITALS: BP 74/57; PULSE 120; RESP 14; TEMP 36.4
[2024-08-25 08:24] VITALS: BP 74/57; PULSE 118; RESP 20; O2SAT 98
[2024-08-25 08:25] VITALS: RESP 20; O2SAT 100
--- NOTE | 2024-08-25 08:39 | ECG_ITS ---
Test Date: 2024-08-25 08:22:33 Measurements Intervals [place] Rate: 112 P: 61 RI: 140 QRS: -73 QRSD: 109 T: 112 QT: 344 QTc: 471 Interpretive Statements ELECTRONIC VENTRICULAR PACEMAKER Compared to ECG 07/29/2024 10:38:26 Ventricular premature complex(es) no longer present Electronically Signed On 08-25-2024 13:34:29 CDT by Dipti Carter M.D.
--- NOTE | 2024-08-25 09:29 | ED_ITS ---
HPI - General Adult General Chief complaint: Unspecified Stated complaint: FTT Time Seen by Provider: 08/25/24 09:28 Source: EMS Mode of arrival: EMS Limitations: altered mental status History of Present Illness HPI narrative: 89 years old white male came from [facility] because of not eating or drinking for while. Patient is confused. Patient's family at the bedside and decided to change patient code status to comfort measures only/hospice and would like to send him back to [facility]. No imaging or labs needed at this time restorative coordinator discussed with family the process of hospice at the [facility], got accepted by [facility] Related Data Allergies Allergy/AdvReac Type Severity Reaction Status Date / Time No Known Allergies Allergy Verified 08/25/24 08:28 Review of Systems Review of Systems: All systems reviewed & are unremarkable except as noted in HPI and below PMFSH Past Medical History Medical History Depression GERD (gastroesophageal reflux disease) Hypertension Irregular heartbeat Hypercholesterolemia Pacemaker FH: cataracts Left Far-sighted Nearsightedness Family history of head, eyes, ears, nose, and throat (HEENT) problems Detached retina right eye Surgical History Surgical History Aortocoronary bypass status Bypass surgery with graft 2016 Social History Social History Smoking status: Former smoker Alcohol intake: former Exam Narrative: GENERAL APPEARANCE: WELL-DEVELOPED, MALNOURISHED SKIN: PALE, SCATTERED ECCHYMOSIS HEAD: NORMOCEPHALIC, NONTRAUMATIC EYES: CLEAR CONJUNCTIVA ENT: OROPHARYNX NORMAL, EARS NORMAL, NOSE NORMAL NECK: SUPPLE, NONTENDER CHEST AND RESPIRATORY: AIRWAY PATENT, NO RESPIRATORY DISTRESS, NO ACCESSORY MUSCLE USE HEART: EJECTION MURMUR ABDOMEN: SOFT, NONTENDER, NO ORGANOMEGALY, QUIET BOWEL SOUNDS VASCULAR: NORMAL PERIPHERAL PULSES, NORMAL CAPILLARY REFILL. MUSCULOSKELETAL: MOVES ALL EXTREMITIES NEUROLOGIC: ALERT, ORIENTED TO HIS NAME ONLY Course Vital Signs Vital signs: Vital Signs Temperature 36.4 C 08/25/24 08:14 Pulse Rate 120 H 08/25/24 08:14 Respiratory Rate 14 08/25/24 08:14 Blood Pressure 74/57 L 08/25/24 08:14 Temperature 36.4 C 08/25/24 08:14 Pulse Rate 118 H 08/25/24 08:24 Respiratory Rate 20 08/25/24 08:25 Blood Pressure 74/57 L 08/25/24 08:24 Pulse Oximetry 100 08/25/24 08:25 Medical Decision Making MDM Narrative Medical decision making narrative: PATIENT CAME WITH GENERAL WEAKNESS, NOT EATING OR DRINKING CODE STATUS CHANGED TO COMFORT MEASURES/HOSPICE, NO LABS OR IMAGING ARE REQUIRED AT THIS TIME, DISCHARGE BACK TO [facility] FOR HOSPICE PROGRAM Vital Signs Vital Signs: Vital Signs Temperature 36.4 C 08/25/24 08:14 Pulse Rate 120 H 08/25/24 08:14 Respiratory Rate 14 08/25/24 08:14 Blood Pressure 74/57 L 08/25/24 08:14 Temperature 36.4 C 08/25/24 08:14 Pulse Rate 118 H 08/25/24 08:24 Respiratory Rate 20 08/25/24 08:25 Blood Pressure 74/57 L 08/25/24 08:24 Pulse Oximetry 100 08/25/24 08:25 Critical Care Time Critical Care Time Critical Care Time: No Discharge Plan Discharge Clinical Impression: Adult failure to thrive, Hospice program care Patient Disposition: NH Fdc/Asst Living Condition: Guarded Prognosis Additional Instructions: Return if symptoms are worsening , call your family physician for appointment, take Tylenol as as needed for aches and pain, continue home medications. Patient Language: Cameroonian Follow-up/Referrals: UNKNOWN,DOCTOR [Primary Care Provider] -
--- OUTSIDE RECORDS SUMMARY | 2024-08-25 09:34 | XMS_ITS | Encounter Summary ---
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 Name Role Phone Isabel Bowen MD Primary Care Provider [phone] Miscellaneous, Not In File Unavailable Unava ilable Jeison Wagner MD Unavailable [phone] Reason for Visit * Reason Onset Date Comments Medical Question/Miscellaneous 07/30/2024 Encounter Details Date Type Department Care Team (Late st Contact Info) Description 07/30/2024 Telephone [facility] Medical [facility] Primary Care at [facility] [address] [facility] [address] [place] [id number] Isabel Bowen MD [address] [address] Medical Question/Miscellaneous Social History Tobacco Use Types Packs/Day Years Used Date Smoking Tobacco: Former Cigarettes Q uit: 1959 Smokeless Tobacco: Never Comments:Smoking History Pac ks/day: 2 Packs Alcohol Use Standard Drinks/Week Comments Yes 0 (1 standard drink = 0.6 oz pur e alcohol) [facility] Utilities Answer Date Recorded In the past 12 months has [employer] electric, gas, oil, or water company threatened to shut off services in your home? No 07/31/2024 Social Connection and Isolat ion Panel [NHANES] Answer Date Recorded In a typical week, how many times do you talk on the phone with family, friends, or neighbors? More than three times a week 07/31/2024 How often do you get togethe r with friends or relatives? More than three times a week 07/31/2024 How often do you attend chur ch or jew services? More than 4 times per year 07/31/2024 Do you belong to any clubs o r organizations such as judaism groups, unions, fraternal or athletic groups, or school groups? No 07/31/2024 How often do you attend meet ings of the clubs or organizations you belong to? Never 07/31/2024 Are you , , di vorced, , never , or living with a partner? 07/31/2024 Overall Financial Resource Strain (CARDIA) Answe r Date Recorded How hard is it for you to pa y for the very basics like food, housing, medical care, and heating? Not very hard 07/31/2024 PHQ-2 Answer Date Recorded PHQ-2 Total Score (If total score is 3 or more points, staff should administer the PHQ-9) 6 07/27/2024 Hunger Vital Sign Answer Date Recorded Within the past 12 months, y ou worried that your food would run out before you got the money to buy more. Never true 07/31/19 25 Within the past 12 months, t he food you bought just didn't last and you didn't have money to get more. Never true 07/31/2024 PRAPARE - Transportation Answer Date Re corded In the past 12 months, has l ack of transportation kept you from medical appointments or from getting medications? No 07/07 In the past 12 months, has l ack of transportation kept you from meetings, work, or from getting things needed for daily living? No 07/31/2024 Housing Stability Vital Sign Answer Price e [...] place to sleep or slept in a senior care (including now)? No 04/12/2022 PHQ-9 Answer Date Recorded PHQ-9 Total Score 23 07/27/2024 Housing Stability Vital Sign Answer Price e Recorded In the last 12 months, was t here a time when you were not able to pay the mortgage or rent on time? No 07/31/2024 In the past 12 months, how m any times have you moved where you were living? 0 07/31/2024 At any time in the past 12 m [facility], were you homeless or living in a senior care (including now)? No 07/31/2024 Personal Safety Answer Date Recorded Have you ever been in or are you currently in a harmful physical or emotional relationship or is someone making you feel afraid or unsafe? 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 G MACHINE OPERATOR LUMBER * Telephone Encounter - Sharon Snyder - 07/30/2024 4:00 PM CST Medical Question/Miscellaneous Caller???s Concern: Patient son in law called to let Hetal SCHROEDER know that he is taking patient to Er at [facility] for his pain. He is going to try and get him admitted into [facility] as well. If there are any questions, please call [facility]. Does message need to be routed? 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
--- OUTSIDE RECORDS SUMMARY | 2024-08-25 09:34 | XMS_ITS | Referral Summary ---
Author Organization [facility] Address [address] [place] [address] Care Team Providers Care Pallet Assembler Name Role Phone Isabel Bowen MD Primary Care Provider [phone] Miscellaneous, Not In File Unavailable Unava ilable Encounters Date Type Department Care Team Description 07/30/2024 8:14 PM DOMESTIC TECHNICIAN - 08/05/2024 10:30 PM DOMESTIC TECHNICIAN Hospital Encounter [facility] [address] [place] [phone] Bradford Valencia MD Shimotani, Onel Garcia, Ha Blair DO Fall, initial encounter (Primary Dx); Closed stable burst fracture of third thoracic vertebra, initial encounter (HCC); Primary osteoarthritis involving multiple joints; Closed fracture of multiple thoracic vertebrae, initial encounter (HCC) Discharge Disposition: Discharge to [facility] 07/30/2024 Telephone [facility] Primary Care at [address] [place] [phone] Isabel Bowen MD Medical Question/Miscellaneou s 07/30/2024 Telephone [facility] Primary Care at [address] [place] [phone] Talia Quintero PA 07/30/2024 12:00 PM DOMESTIC TECHNICIAN Telemedicine [facility] Medical [facility] Primary Care at [address] [phone] Talia Quintero PA Diffuse pain (Primary Dx); Fall, subsequent encounter; Debilitated; Open wound of elbow, unspecified laterality, subsequent encounter 07/30/2024 Nurse Triage [facility] Medical [facility] Primary Care at [address] [phone] Isabel Bowen MD 07/30/2024 Telephone [facility] Primary Care at [address] [phone] Isabel Bowen MD Additional Services Or Orders 07/29/2024 Orders Only [facility] Primary Care at [address] [phone] Brunilda Solorzano NP 07/08/2024 Orders Only [facility] [address] [place] [phone] Alber Lynn MD Cardiomyopathy, ischemic (Primary Dx) 07/08/2024 12:15 PM DOMESTIC TECHNICIAN Ancillary Procedure [facility] [address] [place] [phone] ICD (implantable cardioverter-defibril lator), biventricular, in situ (Primary Dx); Cardiomyopathy, ischemic from Last 3 Months Allergies No known active allergies Medications acetaminophen 500 mg capsule Take 2 capsules (1,000 mg total) by mouth 3 (three) times a day Slowly decrease frequency/dos e of this medication and change to as needed as your pain improves 08/06/19 Active naproxen (NAPROSYN) 375 mg tablet Take 1 tablet (375 mg total) by mouth 2 (two) times a day as needed for pain (pain) 08/06/19 25 025 Active naproxen (NAPROSYN) 375 mg tablet Take 1 tablet (375 mg total) by mouth 2 (two) times a day as needed for pain (pain) 30 tablet 10/26/19 19 025 Discontinued cephalexin (KEFLEX) 250 mg capsuleIndicat ions:Urinary Tract/Genitour inary Infection Take 1 capsule (250 mg total) by mouth 2 (two) times a day 14 capsule 10/07/19 24 025 Discontinued cephalexin (KEFLEX) 500 mg capsuleIndicat ions:Urinary Tract/Genitour inary Infection Take 1 capsule (500 mg total) by mouth 2 (two) times a day for 7 doses 08/06/19 25 025 naproxen (NAPROSYN) 250 mg tablet Take 1 tablet (250 mg total) by mouth 2 (two) times a day as needed for pain 08/06/19 25 025 Discontinued(St op Taking at Discharge) Active Problems Problem Noted Date Diagnosed Date Severe malnutrition 07/31/2024 Diffuse pain 07/30/2024 Assessment & Plan (07/30/2024 1:17 PM DOMESTIC TECHNICIAN): Mr. Shaw, with significant PMH, is an 89 year old that has stopped all medications as he wishes to live peacefully without them at home. I met him for the first time via telemedicine today and he was last seen in the office in 04/2022. He recently suffered a fall at home and EMS transported him to [facility]. I have no access to these records at the time of the appt. Skin tears to his elbows were dressed. Testing was negative and he was d/c home. He has some aid help during the day but not 26/12 care. Daughter and son-in-law are on the telemedicine call today, as well. Due to diffuse pain they brought him back to [facility] yesterday and reportedly CT, x-rays, blood work, blood cultures, urine testing were all negative. We discussed at length home health services. After the telemedicine visit I called the son-in-law to discuss palliative care vs hospice care. They are not ready for hospice care but are interested in palliative care. [id number] appt was completed today via telemedicine and I'll place home health orders and palliative care orders. Fall 07/30/2024 Assessment & Plan (07/30/2024 1:17 PM DOMESTIC TECHNICIAN): Home health PT/wound care ordered. Debilitated 07/30/2024 Assessment & Plan (07/30/2024 1:17 PM DOMESTIC TECHNICIAN): Home health PT and palliative care ordered. Open wound of elbow 07/30/2024 Assessment & Plan (07/30/2024 1:17 PM DOMESTIC TECHNICIAN): Home health wound care ordered. Intractable low back pain 07/30/2024 Laceration of skin of right eyelid and [...] 05/18/2021 Assessment & Plan (05/19/2021 3:47 PM DOMESTIC TECHNICIAN): Stable status post right carotid endarterectomy, asymptomatic. Continue same therapy. Continue diet and exercise. Right inguinal hernia 02/24/2021 Paroxysmal atrial fibrillation 05/05/2020 Assessment & Plan (05/19/2021 3:47 PM DOMESTIC TECHNICIAN): Stable, very brief PAF and nonsustained VT noted on ICD check only, asymptomatic. Continue same therapy. Assessment & Plan (05/05/2020 12:38 PM DOMESTIC TECHNICIAN): Stable, very brief PAF noted on ICD check only. Continue same therapy. VT (ventricular tachycardia) 05/05/2020 Assessment & Plan (05/05/2020 12:39 PM DOMESTIC TECHNICIAN): Very brief nonsustained VT noted on ICD [...] 01/31/2017 Assessment & Plan (05/19/2021 3:46 PM DOMESTIC TECHNICIAN): Stable, well compensated. Continue same therapy. Continue follow-up in the device clinic regarding his biventricular ICD. Assessment & Plan (05/05/2020 12:31 PM DOMESTIC TECHNICIAN): Stable, moderate-severe left ventricular dysfunction, well compensated. Continue same therapy. His ICD check today will be reviewed, and further recommendations forthcoming then. Continue same therapy. Continue follow-up in the device clinic as well. Assessment & Plan (04/30/2019 2:12 PM DOMESTIC TECHNICIAN): Stable, very well compensated. Continue same therapy. Continue follow-up in the device Clinic regarding his ICD. His ICD check today will be reviewed, and further recommendations forthcoming then. Assessment & Plan (04/24/2018 2:30 PM DOMESTIC TECHNICIAN): Stable, very well compensated. Continue same therapy. Assessment & Plan (02/01/2017 1:31 PM CDT): Stable, well compensated status post biventricular ICD. Continue same therapy. He will continue to follow up in the device clinic as well. ICD (implantable cardioverte r-defibrillator), biventricular, in situ 01/09/2017 Overview (08/29/2017): [employer] Inogen X4 PACKAGE CHECKER-D implanted on 10/07/16 for ICM/CHF/LBBB. 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 I made no change [...] standpoint. Assessment & Plan (05/05/2020 12:31 PM DOMESTIC TECHNICIAN): Stable, without angina. I made no change in his excellent medical regimen today. I asked him to follow up with me annually, or sooner if needed. I again advised him to diet and exercise regularly. Assessment & Plan (04/30/2019 2:12 PM DOMESTIC TECHNICIAN): Stable, without angina. I made no change in his excellent medical regimen today. I asked him to follow up with me annually, or sooner if needed. I again advised him to diet and exercise regularly. Assessment & Plan (04/24/2018 2:29 PM DOMESTIC TECHNICIAN): Stable, without angina. I made no change [...] NEC/NOS Assessment & Plan (05/19/2021 3:48 PM DOMESTIC TECHNICIAN): Lipids are well controlled. Continue high-intensity statin therapy. Assessment & Plan (05/05/2020 12:35 PM DOMESTIC TECHNICIAN): Lipids are well controlled. Continue high-intensity statin therapy. Assessment & Plan (04/30/2019 2:13 PM DOMESTIC TECHNICIAN): Lipids are well controlled. Continue high-intensity statin therapy. Assessment & Plan (10/25/2018 2:59 PM CDT): Patient has been off atorvastatin for some time. Will check cholesterol levels today before considering reinstatement of medication. Assessment & Plan (04/24/2018 2:31 PM DOMESTIC TECHNICIAN): Lipids are very well controlled. Continue high-intensity [...] disease invo lving coronary bypass graft of kenaitze heart without angina pectoris 08/28/2017 04/20/2018 Assessment & Plan (08/28/2017 12:01 PM CDT): Patient sees spa assistant manager once a year. He is on aspirin [...] chest x-ray 08/28/2017 022 Sinoatrial node dysfunction 01/31/2017 08/28/2017 Essential hypertension 01/31/201704/17 Assessment & Plan (05/19/2021 3:47 PM DOMESTIC TECHNICIAN): Systolic pressure is high today, but is well controlled in general. Continue same therapy. Continue diet and exercise. Assessment & Plan (05/05/2020 12:32 PM DOMESTIC TECHNICIAN): Systolic pressure is high today, but is well controlled in general. Continue same therapy. Continue diet and exercise. Assessment & Plan (04/30/2019 2:13 PM DOMESTIC TECHNICIAN): Blood pressure is well controlled. Continue same therapy. Continue diet and exercise. Assessment & Plan (04/24/2018 2:30 PM DOMESTIC TECHNICIAN): Blood pressure is borderline today, but is [...] occlusion Assessment & Plan (05/05/2020 12:31 PM DOMESTIC TECHNICIAN): Stable status post right carotid endarterectomy, asymptomatic. Continue same therapy. Assessment & Plan (04/30/2019 2:12 PM DOMESTIC TECHNICIAN): Stable status post right carotid endarterectomy, asymptomatic. Continue same therapy. Continue diet and exercise. Assessment & Plan (04/24/2018 2:30 PM DOMESTIC TECHNICIAN): Stable, status post right carotid endarterectomy without [...] drink = 0.6 oz pur e alcohol) [facility] Utilities Answer Date Recorded In the past 12 months has [employer], gas, oil, or water [employer] threatened to shut off services in your [...] often do you attend chur ch or nondenominational services? More than 4 times per year 07/31/2024 Do you belong to any clubs o r organizations such as yazidism groups, unions, fraternal or athletic groups, or [...] place to sleep or slept in a care home (including now)? No 04/12/2022 PHQ-9 Answer Date [...] any time in the past 12 m [facility], were you homeless or living in a care home (including now)? No 07/31/2024 Personal Safety Answer Date Recorded Have you ever been in or are you currently in a harmful physical or emotional relationship or is someone making you feel afraid or unsafe? Denies 07/30/2024 Sex and Gender Information Value Date Recorded Sex Assigned at Not on file Legal Sex Male 10:40 AM DOMESTIC TECHNICIAN Gender Identity Not on file Sexual Orientation Not on file Last Filed Vital Signs Vital Sign Reading Time Taken Comments Blood Pressure 140/62 08/05/2024 8:08 PM DOMESTIC TECHNICIAN Pulse 78 08/05/2024 8:08 PM DOMESTIC TECHNICIAN Temperature 36.6 C (97.8 F) 08/05/2024 8:08 PM DOMESTIC TECHNICIAN Respiratory Rate 16 08/05/2024 8:08 PM DOMESTIC TECHNICIAN Oxygen Saturation 97% 08/05/2024 8:08 PM DOMESTIC TECHNICIAN Inhaled Oxygen Concentration - - Weight 63.6 kg (140 lb 3.4 oz) 07/31/2024 12:30 PM DOMESTIC TECHNICIAN Height 170.2 cm (5' 7 ) 07/31/2024 1:40 AM DOMESTIC TECHNICIAN Body Mass Index 21.96 07/31/2024 1:40 AM DOMESTIC TECHNICIAN Plan of Treatment Not on file Medical Devices Implanted Type Area Fractionation Supervisor Device Identifier Shelf Expiration Date Model / Serial / Lot Icd-10/07/2016 Implanted:10/2016 by Alber Lynn MD (Quantity not on file) ICD Chest Wall [employer] Description:[employer] DDD Inog en X4 PACKAGE CHECKER-D implanted on 10/07/16 for ICM/CHF/LBBB. Leah - Melly Procedures Procedure Name Priority Date/Time Associated Diagnosis Comments EGFR Routine 08/02/2024 5:13 AM DOMESTIC TECHNICIAN BASIC METABOLIC PANEL Routine 08/02/2024 5:13 AM DOMESTIC TECHNICIAN TRANSTHORACIC ECHO (TTE) COMPLETE W DOPPLER/CF WO CONTRAST Routine 08/01/2024 12:01 PM DOMESTIC TECHNICIAN URINALYSIS, MICROSCOPIC ONLY STAT 07/31/2024 12:35 PM DOMESTIC TECHNICIAN URINE CULTURE STAT 07/31/2024 12:35 PM DOMESTIC TECHNICIAN URINALYSIS AND REFLEX TO MICROSCOPIC AND CULTURE STAT 07/31/2024 12:35 PM DOMESTIC TECHNICIAN POCT GLUCOSE DEVICE Routine 07/31/2024 6 :00 AM DOMESTIC TECHNICIAN EGFR Routine 07/31/2024 5:45 AM DOMESTIC TECHNICIAN DIFFERENTIAL AUTO Routine 07/31/2024 5:4 5 AM DOMESTIC TECHNICIAN CBC WITH AUTO DIFFERENTIAL Routine 07/31/2024 5:45 AM DOMESTIC TECHNICIAN MAGNESIUM Routine 07/31/2024 5:45 AM DOMESTIC TECHNICIAN BASIC METABOLIC PANEL Routine 07/31/2024 5:[address] THORACIC SPINE WO CONTRAST ED Urgent/IP Urgent 07/30/2024 9:[address] LUMBAR SPINE WO CONTRAST ED Urgent/IP Urgent 07/30/2024 9:[address] CERVICAL SPINE WO CONTRAST ED 07/30/2024 9:44 PM DOMESTIC TECHNICIAN XR PELVIS 1 OR 2 VIEWS ED 07/30/2024 9:09 PM DOMESTIC TECHNICIAN TROPONIN T HIGH-SENSITIVITY 2-HOUR Timed 07/30/2024 8:24 PM DOMESTIC TECHNICIAN XR CHEST PA LATERAL 2 VIEWS ED 07/30/2024 5:45 PM DOMESTIC TECHNICIAN EGFR STAT 07/30/2024 5:26 PM DOMESTIC TECHNICIAN DIFFERENTIAL AUTO STAT 07/30/2024 5:2 6 PM DOMESTIC TECHNICIAN TROPONIN T HIGH-SENSITIVITY SERIES (BASELINE, 2HR, 4HR, 6HR) STAT 07/30/2024 5:26 PM DOMESTIC TECHNICIAN COMPREHENSIVE METABOLIC PANEL STAT 07/30/2024 5:26 PM DOMESTIC TECHNICIAN CBC WITH AUTO DIFFERENTIAL STAT 07/30/2024 5:26 PM DOMESTIC TECHNICIAN RESPIRATORY PATHOGEN PANEL STAT 07/30/2024 5:26 PM DOMESTIC TECHNICIAN ECG 12-LEAD STAT 07/30/2024 5:20 PM DOMESTIC TECHNICIAN DEVICE CHECK - REMOTE Routine 07/08/2024 11:23 AM DOMESTIC TECHNICIAN Cardiomyopathy, ischemic from Last 3 Months Results * eGFR (08/02/2024 5:13 AM DOMESTIC TECHNICIAN) eGFR 63 >=60 mL/min/1. 73 m2 Comment: Interpretive Data Reference Interval Normal >/= 90 mL/min/1.73m2 Mildly decreased* 60 - 89 mL/min/1.73m2 Mildly to moderately decreased 45 - 59 mL/min/1.73m2 Moderately to severely decreased 30 - 44 mL/min/1.73m2 Severely decreased 15 - 29 mL/min/1.73m2 Kidney Failure < 15 mL/min/1.73m2 *Relative to young adult level Estimated glomerular filtration rate is determined by the 2020 CKD-EPI equation recommended by the National Kidney Foundation (A Unifying Approach to GFR Estimation: Recommendations of the NKF-ASK Task Force on Reassessing the Inclusion of Race in Diagnosing Kidney Disease, JASN 202). The CKD-EPI equation should not be used for patients with unstable renal function and has not been validated in children and those over 70. Current interpretive data was last reviewed 2021. Blood 08/02/2024 5:13 AM DOMESTIC TECHNICIAN 08/02/2024 5:39 AM DOMESTIC TECHNICIAN us Bazgha Micah Ahmad DO LAB BLOOD ORDERABLES Kenya l Result [facility] [address] [place] [address] * (ABNORMAL) Basic metabolic panel (08/02/2024 5:13 AM DOMESTIC TECHNICIAN) Pathologist [facility] Sodium 140 135 - 145 mmol/L Potassium, pl 4.0 3.3 - 4.9 mmol/L [facility] Chloride 106 97 - 110 mmol/L [facility] CO2 23 22 - 32 mmol/L [facility] Anion gap 11 2 - 15 mmol/L [facility] BUN 37(H) 6 - 25 mg/dL [facility] Creatinine 1.12 0.80 - 1.30 mg/dL [facility] Glucose 86 70 - 199 mg/dL [facility] Comment: Interpretive Data Fasting glucose >/= 126 mg/dl is diagnostic for diabetes. Fasting is defined as no caloric intake for at least 8 hours. Fasting glucose between 100 mg/dl to 125 mg/dl is diagnostic of prediabetes. In a patient with classic symptoms of hyperglycemia or hyperglycemic crisis, a random glucose >/= 200 mg/dl is diagnostic for diabetes. In the absence of unequivocal hyperglycemia, results should be confirmed by repeat testing. The classification and Diagnosis of Diabetes Diabetes Care 2021; 46: S19-S40. Current interpretive data was last revised 2022. Calcium 8.3(L) 8.5 - 10.3 mg/dL [facility] Blood 08/02/2024 5:13 AM DOMESTIC TECHNICIAN 08/02/2024 5:39 AM DOMESTIC TECHNICIAN us Bazgha Micha Ahmad DO LAB BLOOD ORDERABLES Kenya l Result [facility] [address] Department [place] [address] * TRANSTHORACIC ECHO (TTE) COMPLETE W DOPPLER/CF WO CONTRAST (08/01/2024 12:01 PM DOMESTIC TECHNICIAN) [facility] LV EF 65 % CONS SCIMAGE Anatomical Region Laterality Modality Ultrasound 08/01/2024 11:0 2 AM DOMESTIC TECHNICIAN Narrative 08/01/2024 1:04 PM DOMESTIC TECHNICIAN [facility] [place] [address] [address] [place] [address] ECHOCARDIOGRAM Patient Name: JOSE SHAW : 1935 (89y 4m) Gender: M Study Date: 08/01/2024 11:02:32 AM Ht(Inch): 67 Wt(Lb): 139.99 BSA: 1.73 Rug Cleaner Hand: Location: [id number] Order Provider: HA BRITO BMI: 21.92 BP: 104/72 Ref Provider: HA BRITO - PROCEDURES: Echocardiographic Report: Transthoracic Echocardiogram with complete 2D, M-Mode, Spectral and Color Flow Doppler examination. INDICATIONS: Fall, unclear etiology, murmur. MEASUREMENTS: 2D/MM Value Range Doppler Value Range IVSd 2D 1.00 cm [ 0.60 - 1.00 ] AV Peak Randall 1.78 m/s [ 1.00 - 1.70 ] LVIDd 2D 4.02 cm [ 4.20 - 5.80 ] AV Peak PG 12.7 mmHg LVIDs 2D 2.61 cm [ 2.50 - 4.00 ] AV Mean PG 6.8 mmHg LVPWd 2D 0.84 cm [ 0.60 - 1.00 ] AV VTI 32.1 cm Estimated EF 65 % FAN VTI 1.6 cm2 LA Dimension 2D 2.18 cm [ 3.00 - 4.00 ] LVOT Peak Randall 0.93 m/s [ 0.70 - 1.10 ] AoR Diam 2D 2.99 cm [ 3.10 - 3.70 ] LVOT Diam 2.0 cm AoR Diam 2D Index 1.73 LVOT VTI 17.2 cm RA Volume 24.00 ml MV Mean PG 3.9 mmHg LA Volume Index 66.65 ml/m2 [ 16.00 - 34.00 ] MV E Peak Randall 1.2 m/s [ 0.6 - 1.3 ] TAPSE 1.35 cm [ 1.71 - 5.00 ] MV A Peak Randall 1.1 m/s [ 1.0 - 1.2 ] MV PHT 97.2 ms [ 20.0 - 100.0 ] MV Decel Time 263.3 ms [ 104.0 - 258.0 ] MVA PHT 2.3 ms MV E/A Ratio 1.1 TR Peak Randall 2.5 m/s [ 1.0 - 2.8 ] TR Peak PG 24 mmHg PV Peak Randall 0.6 m/s [ 0.4 - 0.8 ] PV Peak PG 1.7 mmHg Lat E` Randall 0.06 m/s [ 0.10 - 0.15 ] Sept E' Randall 0.04 m/s [ 0.08 - 0.15 ] E/E` 20.00 RV S' 0.08 m/s 2D/MM Value Range Doppler Value Range - FINDINGS: Study Quality: The study was technically adequate. BP: Blood pressure: 104/72 mmHg. Left Ventricle: Normal global and regional left ventricular systolic function. Ejection Fraction is estimated at 65 %. Normal left ventricular cavity size. LV wall thickness is within normal limits. Right Ventricle: The right ventricle is not well visualized. Appears normal in size, low-normal to mild RV dysfunction (difficult to assess given poor visualization of RV free wall). Left Atrium: There is moderate enlargement of the left atrium. Right Atrium: The right atrium is normal in size. Atrial Septum: Normal appearing atrial septum. Mitral Valve: There appears to be at least mild posterior leaflet prolapse, leaflets are poorly visualized due to calcification there is at least moderate possibly worse (severe) mitral regurgitation, recommend PALOMA if clinically indicated. Moderate mitral annular calcification. Aortic Valve: Aortic valve appears tricuspid in configuration. Borderline/Mild aortic stenosis. V max 1.8 m/sec, mean gradient 7 mmHg. Mild aortic valve regurgitation. Tricuspid Valve: Grossly normal appearing tricuspid valve. TR envelope inadequate to estimate RVSP. Pulmonic Valve: Grossly normal appearing pulmonic valve. There is no pulmonic stenosis. There is no pulmonic regurgitation. Pericardium: No significant pericardial effusion. Aortic Root and Aorta: The sinuses of Valsalva are normal. Normal sized ascending aorta. Aortic Arch: Grossly normal aortic arch. IVC: The IVC is not seen. Exam Interpreted: Read by Instructional Design Specialist of the day to expedite patient care. CONCLUSIONS: 1. Normal global and regional left ventricular systolic function. Ejection Fraction is estimated at 65 %. Normal left ventricular cavity size. LV wall thickness is within normal limits. 2. The right ventricle is not well visualized. Appears normal in size, low- normal to mild RV dysfunction (difficult to assess given poor visualization of RV free wall). 3. There is moderate enlargement of the left atrium. 4. There appears to be at least mild posterior leaflet prolapse, leaflets are poorly visualized due to calcification there is at least moderate possibly worse (severe) mitral regurgitation, recommend PALOMA if clinically indicated. Moderate mitral annular calcification. 5. Aortic valve appears tricuspid in configuration. Borderline/Mild aortic stenosis. V max 1.8 m/sec, mean gradient 7 mmHg. Mild aortic valve regurgitation. 6. Grossly normal appearing tricuspid valve. TR envelope inadequate to estimate RVSP. 7. Grossly normal appearing pulmonic valve. There is no pulmonic stenosis. There is no pulmonic regurgitation. Electronically Signed By: Braulio Bautista MD [facility] 08/01/2024 1:03:51 PM DOMESTIC TECHNICIAN Procedure Note Braulio Bautista MD - 08/01/2024 [place] [id number] [place] [address] ECHOCARDIOGRAM Patient Name: JOSE SHAW : 1935 (89y 4m) Gender: M Study Date: 08/01/2024 11:02:32 AM Ht(Inch): 67 Wt(Lb): 139.99 BSA: 1.73 Rug Cleaner Hand: Location: [id number] Order Provider: HA BRITO BMI: 21.92 BP: 104/72 Ref Provider: HA BRITO - PROCEDURES: Echocardiographic Report: Transthoracic Echocardiogram with complete 2D,M-Mode, Spectral and Color Flow Doppler examination. INDICATIONS: Fall, unclear etiology, murmur. MEASUREMENTS: 2D/MM Value Range DopplerValue Range IVSd 2D 1.00 cm [ 0.60 - 1.00 ] AV Peak Vel1.78 m/s [ 1.00 - 1.70 ] LVIDd 2D 4.02 cm [ 4.20 - 5.80 ] AV Peak PG12.7 mmHg LVIDs 2D 2.61 cm [ 2.50 - 4.00 ] AV Mean PG6.8 mmHg LVPWd 2D 0.84 cm [ 0.60 - 1.00 ] AV VTI32.1 cm Estimated EF 65 % FAN VTI1.6 cm2 LA Dimension 2D 2.18 cm [ 3.00 - 4.00 ] LVOT Peak Vel0.93 m/s [ 0.70 - 1.10 ] AoR Diam 2D 2.99 cm [ 3.10 - 3.70 ] LVOT Diam2.0 cm AoR Diam 2D Index 1.73 LVOT VTI17.2 cm RA Volume 24.00 ml MV Mean PG3.9 mmHg LA Volume Index 66.65 ml/m2 [ 16.00 - 34.00 ] MV E Peak Vel1.2 m/s [ 0.6 - 1.3 ] TAPSE 1.35 cm [ 1.71 - 5.00 ] MV A Peak Vel1.1 m/s [ 1.0 - 1.2 ] MV PHT 97.2 ms [ 20.0 - 100.0 ] MV Decel Time 263.3 ms [ 104.0 - 258.0 ] MVA PHT 2.3 ms MV E/A Ratio 1.1 TR Peak Ranadll 2.5 m/s [ 1.0 - 2.8 ] TR Peak PG 24 mmHg PV Peak Randall 0.6 m/s [ 0.4 - 0.8 ] PV Peak PG 1.7 mmHg Lat E` Randall 0.06 m/s [ 0.10 - 0.15 ] Sept E' Randall 0.04 m/s [ 0.08 - 0.15 ] E/E` 20.00 RV S' 0.08 m/s 2D/MM Value Range DopplerValue Range - FINDINGS: Study Quality: The study was technically adequate. BP: Blood pressure: 104/72 mmHg. Left Ventricle: Normal global and regional left ventricular systolicfunction. Ejection Fraction is estimated at 65 %. Normal left ventricular cavity size. LVwall thickness is within normal limits. Right Ventricle: The right ventricle is not well visualized. Appearsnormal in size, low-normal to mild RV dysfunction (difficult to assess given poorvisualization of RV free wall). Left Atrium: There is moderate enlargement of the left atrium. Right Atrium: The right atrium is normal in size. Atrial Septum: Normal appearing atrial septum. Mitral Valve: There appears to be at least mild posterior leafletprolapse, leaflets are poorly visualized due to calcification there is at least moderate possiblyworse (severe) mitral regurgitation, recommend PALOMA if clinically indicated. Moderatemitral annular calcification. Aortic Valve: Aortic valve appears tricuspid in configuration.Borderline/Mild aortic stenosis. V max 1.8 m/sec, mean gradient 7 mmHg. Mild aortic valveregurgitation. Tricuspid Valve: Grossly normal appearing tricuspid valve. TR envelopeinadequate to estimate RVSP. Pulmonic Valve: Grossly normal appearing pulmonic valve. There is nopulmonic stenosis. There is no pulmonic regurgitation. Pericardium: No significant pericardial effusion. Aortic Root and Aorta: The sinuses of Valsalva are normal. Normal sizedascending aorta. Aortic Arch: Grossly normal aortic arch. IVC: The IVC is not seen. Exam Interpreted: Read by Instructional Design Specialist of the day to expedite patientcare. CONCLUSIONS: 1. Normal global and regional left ventricular systolic function. EjectionFraction is estimated at 65 %. Normal left ventricular cavity size. LV wall thicknessis within normal limits. 2. The right ventricle is not well visualized. Appears normal in size,low-normal to mild RV dysfunction (difficult to assess given poor visualization of RV freewall). 3. There is moderate enlargement of the left atrium. 4. There appears to be at least mild posterior leaflet prolapse, leafletsare poorly visualized due to calcification there is at least moderate possibly worse(severe) mitral regurgitation, recommend PALOMA if clinically indicated. Moderate mitralannular calcification. 5. Aortic valve appears tricuspid in configuration. Borderline/Mild aorticstenosis. V max 1.8 m/sec, mean gradient 7 mmHg. Mild aortic valve regurgitation. 6. Grossly normal appearing tricuspid valve. TR envelope inadequate toestimate RVSP. 7. Grossly normal appearing pulmonic valve. There is no pulmonic stenosis.There is no pulmonic regurgitation. Electronically Signed By: Braulio Bautista MD [facility] 08/01/2024 1:03:51 PM DOMESTIC TECHNICIAN Bazgha Micah Ahmad DO CV ECHO PROCEDURES Final Result * (ABNORMAL) Urinalysis reflex to microscopic and culture Urine (07/31/2024 12:35 PM DOMESTIC TECHNICIAN) Color, ur Yellow Yellow Clarity, ur Turbid(A) Clear [facility] Specific gravity, ur 1.034(H) 1.003 - 1.030 [facility] pH, urine 8.5 [facility] Comment: Interpretive Data U rine pH is affected by diet, medications, systemic acid-base disturbances, and renal tubular function. pH may affect urinary stone formation. For example, urine pH below 6.0 may help reduce the tendency for calcium phosphate stones and pH greater than 6.0 may reduce the tendency for uric acid stone formation. Source: [facility] [employer] Current Interpretive Data was last revised on 2017 Protein, ur ql 2+(A) Negative [facility] Glucose, ur ql Negative Negative [facility] Ketones, ur 1+(A) Negative [facility] Bilirubin, ur Negative Negative [facility] Blood, ur 2+(A) Negative [facility] Urobilinogen, ur <2.0 <2.0 mg/dL [facility] Nitrite, ur Negative Negative [facility] Leukocyte esterase, ur 4+(A) Negative [facility] UA reflex comment Reflex to microscopic UA will be performed. [facility] Urine 07/31/2024 12:3 5 PM DOMESTIC TECHNICIAN 07/31/2024 12:47 PM DOMESTIC TECHNICIAN Bradford Valencia MD LAB MICROBIOLOGY - GENERAL ORDERABLES Final Result Performing Organization Address [facility] Co de Phone Number [facility] [address] [facility] [place] [address] * (ABNORMAL) Urinalysis, microscopic only (07/31/2024 12:35 PM DOMESTIC TECHNICIAN) WBC, ur >50(A) 0 - 5 /HPF RBC, ur 11-20(A) 0 - 2 /HPF [facility] Bacteria, ur 2+(A) [facility] Triple phosphate crystals, ur 2+(A) [facility] Hyaline casts, ur 11-20(A) 0 - 10 /LPF [facility] Culture Reflex Comment Reflex to urine culture will be performed. [facility] Urine 07/31/2024 12:3 5 PM DOMESTIC TECHNICIAN 07/31/2024 12:47 PM DOMESTIC TECHNICIAN Bradford Valencia MD LAB URINE ORDERABLES Final Result Performing Organization Address [facility] Co de Phone Number [facility] [address] [place] [address] * (ABNORMAL) Urine culture Urine (07/31/2024 12:35 PM DOMESTIC TECHNICIAN) Report Final Report: Greater than or equal to 100,000 colonies/ml of Proteus mirabilis (.) Organism PROTEUS MIRABILIS [facility] Urine 07/31/2024 12:3 5 PM DOMESTIC TECHNICIAN 07/31/2024 3:41 PM DOMESTIC TECHNICIAN Narrative [facility] - 08/02/2024 7:30 AM DOMESTIC TECHNICIAN Urine culture reflexed based upon urinalysis results. Organism Antibiotic Method Susceptibility Proteus mirabilis Ampicillin with Sulbactam (ROBERT) INTE RPRETATION Susceptible Proteus mirabilis Cefazolin (ROBERT) INTERPRETATION Susceptible Proteus mirabilis Ciprofloxacin (ROBERT) INTERPRETATION Susceptible Proteus mirabilis Gentamicin (ROBERT) INTERPRETATION Susceptible Proteus mirabilis Levofloxacin (ROBERT) INTERPRETATION Susceptible Proteus mirabilis Meropenem (ROBERT) INTERPRETATION Susceptible Proteus mirabilis Nitrofurantoin (ROBERT) INTERPRETATION Resistant Proteus mirabilis Piperacillin/Tazobactam (ROBERT) INTERP RETATION Susceptible Proteus mirabilis Trimethoprim with Sulfamethoxazole (ROBERT) INTERPRETATION Susceptible Bradford Valencia MD LAB MICROBIOLOGY - GENERAL ORDERABLES Final Result Performing Organization Address [facility] Co de Phone Number [facility] [address] Department [place] [address] * POCT glucose (07/31/2024 6:00 AM DOMESTIC TECHNICIAN) Glucose, POC 84 70 - 199 mg/dL Comment: For Glucose values <35 mg/dl when Hematocrit is >60 mg/dl,the test may not accurately detect significant hypoglycemia,and testing in the Laboratory should be considered if clinically indicated. Blood 07/31/2024 6:00 AM DOMESTIC TECHNICIAN 07/31/2024 6:00 AM DOMESTIC TECHNICIAN Onel Reynoso DO LAB POCT ORDERABLES - DEVICE Final Result Performing Organization Address [facility] Co de Phone Number [facility] [address] Department [place] [address] * eGFR (07/31/2024 5:45 AM DOMESTIC TECHNICIAN) eGFR 77 >=60 mL/min/1. 73 m2 Comment: Interpretive Data Reference Interval Normal >/= 90 mL/min/1.73m2 Mildly decreased* 60 - 89 mL/min/1.73m2 Mildly to moderately decreased 45 - 59 mL/min/1.73m2 Moderately to severely decreased 30 - 44 mL/min/1.73m2 Severely decreased 15 - 29 mL/min/1.73m2 Kidney Failure < 15 mL/min/1.73m2 *Relative to young adult level Estimated glomerular filtration rate is determined by the 2020 CKD-EPI equation recommended by the National Kidney Foundation (A Unifying Approach to GFR Estimation: Recommendations of the NKF-ASK Task Force on Reassessing the Inclusion of Race in Diagnosing Kidney Disease, JASN 2020). The CKD-EPI equation should not be used for patients with unstable renal function and has not been validated in children and those over 70. Current interpretive data was last reviewed 2021. Blood 07/31/2024 5:45 AM DOMESTIC TECHNICIAN 07/31/2024 6:57 AM DOMESTIC TECHNICIAN us Onel Reynoso DO LAB BLOOD ORDERABLES F inal Result [facility] [address] Department [place] [address] * Differential, auto (07/31/2024 5:45 AM DOMESTIC TECHNICIAN) Neutrophil abs 4.4 1.5 - 6.5 K/cumm Imm gran abs 0.0 0.0 - 0.1 K/cumm [facility] Lymphocyte abs 1.0 0.8 - 3.3 K/cumm [facility] Monocyte abs 0.6 0.2 - 0.8 K/cumm [facility] Eosinophil abs 0.0 0.0 - 0.5 K/cumm [facility] Basophil abs 0.0 0.0 - 0.1 K/cumm [facility] Neutrophil pct 72.7 % [facility] Comment: Interpretive Data Percent cell count reference ranges are not reported, since discordance with absolute values may lead to misinterpretation of CBC data. Current Interpretive Data was last revised on 2017. Imm gran pct 0.5 % [facility] Comment: Interpretive Data Percent cell count reference ranges are not reported, since discordance with absolute values may lead to misinterpretation of CBC data. Current Interpretive Data was last revised on 2017. Lymphocyte pct 16.3 % [facility] Comment: Interpretive Data Percent cell count reference ranges are not reported, since discordance with absolute values may lead to misinterpretation of CBC data. Current Interpretive Data was last revised on 2017. Monocyte pct 9.5 % [facility] Comment: Interpretive Data Percent cell count reference ranges are not reported, since discordance with absolute values may lead to misinterpretation of CBC data. Current Interpretive Data was last revised on 2017. Eosinophil pct 0.7 % [facility] Comment: Interpretive Data Percent cell count reference ranges are not reported, since discordance with absolute values may lead to misinterpretation of CBC data. Current Interpretive Data was last revised on 2017. Basophil pct 0.3 % [facility] Comment: Interpretive Data Percent cell count reference ranges are not reported, since discordance with absolute values may lead to misinterpretation of CBC data. Current Interpretive Data was last revised on 2017. Blood 07/31/2024 5:45 AM DOMESTIC TECHNICIAN 07/31/2024 6:57 AM DOMESTIC TECHNICIAN Onel Reynoso DO LAB BLOOD ORDERABLES F inal Result [facility] [address] Department [place] [address] * (ABNORMAL) CBC with auto differential (07/31/2024 5:45 AM DOMESTIC TECHNICIAN) WBC 6.1 3.8 - 9.9 K/cumm Hgb 12.6(L) 13.0 - 17.5 g/dL [facility] Hct 39.1 38.9 - 50.3 % [facility] Plt 170 150 - 400 K/cumm [facility] MPV 10.9 9.1 - 12.3 fL [facility] RBC 4.09(L) 4.30 - 5.80 M/cumm [facility] MCV 95.6 81.3 - 96.4 fL [facility] MCH 30.8 27.1 - 33.3 pg [facility] MCHC 32.2(L) 32.3 - 35.7 g/dL [facility] RDW CV 14.8 11.1 - 14.9 % [facility] RDW SD 51.8(H) 35.7 - 48.1 fL [facility] NRBC abs 0.00 0.00 - 0.01 K/cumm [facility] Blood 07/31/2024 5:45 AM DOMESTIC TECHNICIAN 07/31/2024 6:57 AM DOMESTIC TECHNICIAN Onel Reynoso LAB BLOOD ORDERABLES F inal Result Performing Organization Address City/[facility]/ZIP Co de Phone Number [facility] [address] [place] [address] * Magnesium (07/31/2024 5:45 AM DOMESTIC TECHNICIAN) [facility] Magnesium 2.0 1.4 - 2.5 mg/dL Blood 07/31/2024 5:45 AM DOMESTIC TECHNICIAN 07/31/2024 6:57 AM DOMESTIC TECHNICIAN Onel Reynoso LAB BLOOD ORDERABLES F inal Result Performing Organization Address [facility] Co de Phone Number [facility] [address] Department [place] [address] * (ABNORMAL) Basic metabolic panel (07/31/2024 5:45 AM DOMESTIC TECHNICIAN) [facility] Sodium 139 135 - 145 mmol/L Potassium, pl 4.0 3.3 - 4.9 mmol/L [facility] Chloride 106 97 - 110 mmol/L [facility] CO2 22 22 - 32 mmol/L [facility] Anion gap 11 2 - 15 mmol/L [facility] BUN 23 6 - 25 mg/dL [facility] Creatinine 0.94 0.80 - 1.30 mg/dL [facility] Glucose 90 70 - 199 mg/dL [facility] Comment: Interpretive Data Fasting glucose >/= 126 mg/dl is diagnostic for diabetes. Fasting is defined as no caloric intake for at least 8 hours. Fasting glucose between 100 mg/dl to 125 mg/dl is diagnostic of prediabetes. In a patient with classic symptoms of hyperglycemia or hyperglycemic crisis, a random glucose >/= 200 mg/dl is diagnostic for diabetes. In the absence of unequivocal hyperglycemia, results should be confirmed by repeat testing. The classification and Diagnosis of Diabetes Diabetes Care 2021; 46: S19-S40. Current interpretive data was last revised 2022. Calcium 8.2(L) 8.5 - 10.3 mg/dL [facility] Blood 07/31/2024 5:45 AM DOMESTIC TECHNICIAN 07/31/2024 6:57 AM DOMESTIC TECHNICIAN Onel Reynoso DO LAB BLOOD ORDERABLES F inal Result [facility] [address] Department [place] [address] * CT Thoracic Spine WO Contrast (07/30/2024 9:44 PM DOMESTIC TECHNICIAN) Anatomical Region Laterality Modality Spine N/A Computed Tomogra phy 07/30/2024 9:31 PM DOMESTIC TECHNICIAN Impressions 07/31/2024 7:34 AM DOMESTIC TECHNICIAN 1. Multilevel thoracic spondylosis. 2. No new acute osseous abnormality compared with prior CT chest, abdomen and pelvis dated 10/07/2023. For the purposes of bottle house quality control technician, this study was initially interpreted by teleradiology. There is no significant discrepancy. Electronically signed by: Andrew Rodriguez M.D. Narrative 07/31/2024 7:[address] THORACIC SPINE WO CONTRAST 07/30/2024 9:25 PM CLINICAL INDICATION: Thoracic compression fracture. COMPARISON: CT chest, abdomen and pelvis dated 10/07/2023. Chest radiograph dated 07/30/2024. TECHNIQUE: CT scan of the thoracic spine was performed without contrast. Coronal and sagittal reformatted images were generated. FINDINGS: There is generalized osteopenia. There is mild increased thoracic kyphosis and thoracic ankylosis. There are slight depressions along the T3 and T4 superior endplates, which are unchanged compared with prior CT chest, abdomen and pelvis dated 10/07/2023. A slight depression along the anterior aspect of the T11 superior endplate, as well as a T12 mild compression deformity are unchanged compared with prior CT. There is no new compression deformity along the thoracic spine. No acute osseous abnormality is identified. There is no high-grade central stenosis. There is a large hiatal hernia. There are small bilateral pleural effusions. There is biapical pleural thickening. There are no acute findings in the visualized chest and upper abdomen. There is a punctate left kidney calcification. Procedure Note Andrew Rodriguez MD - 07/31/2024 CT THORACIC SPINE WO CONTRAST 07/30/2024 9:25 PM CLINICAL INDICATION: Thoracic compression fracture. COMPARISON: CT chest, abdomen and pelvis dated 10/07/2023. Chest radiograph dated 07/30/2024. TECHNIQUE: CT scan of the thoracic spine was performed without contrast. Coronal and sagittal reformatted images were generated. FINDINGS: There is generalized osteopenia. There is mild increased thoracic kyphosis and thoracic ankylosis. There are slight depressions along the T3 and T4 superior endplates, which are unchanged compared with prior CT chest, abdomen and pelvis dated 10/07/2023. A slight depression along the anterior aspect of the T11 superior endplate, as well as a T12 mild compression deformity are unchanged compared with prior CT. There is no new compression deformity along the thoracic spine. No acute osseous abnormality is identified. There is no high-grade central stenosis. There is a large hiatal hernia. There are small bilateral pleural effusions. There is biapical pleural thickening. There are no acute findings in the visualized chest and upper abdomen. There is a punctate left kidney calcification. IMPRESSION: 1. Multilevel thoracic spondylosis. 2. No new acute osseous abnormality compared with prior CT chest, abdomen and pelvis dated 10/07/2023. For the purposes of bottle house quality control technician, this study was initially interpreted by teleradiology. There is no significant discrepancy. Electronically signed by: Andrew Rodriguez M.D. Bradford Valencia MD IM CT PROCEDURES Final Re sult * CT Lumbar Spine WO Contrast (07/30/2024 9:44 PM DOMESTIC TECHNICIAN) Anatomical Region Laterality Modality Spine N/A Computed Tomogra phy 07/30/2024 9:31 PM DOMESTIC TECHNICIAN Impressions 07/31/2024 7:32 AM DOMESTIC TECHNICIAN 1. Multiple compression deformity along the lumbar spine, unchanged compared with prior CT dated 10/07/2023. 2. Multilevel lumbar spondylosis. 3. 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 4. L4-5 moderate to severe bilateral neural foraminal narrowing. For the purposes of bottle house quality control technician, this study was initially interpreted by teleradiology. There is no significant discrepancy. Electronically signed by: Andrew Rodriguez M.D. Narrative 07/31/2024 7:[address] LUMBAR SPINE WO CONTRAST 07/30/2024 9:30 PM CLINICAL INDICATION: Compression fracture, lumbar. COMPARISON: CT chest, abdomen and pelvis dated 10/07/2023. TECHNIQUE: CT scan of the lumbar spine was performed without contrast. Coronal and sagittal reformatted images were generated. FINDINGS: There is generalized osteopenia. There is straightening of normal lumbar lordosis. T12, L1, L3, L4 and L5 compression deformities are unchanged compared with prior prior CT. There is near-complete loss of vertebral body height at L4, which is unchanged. There is no new compression deformity or acute osseous abnormality along the course of the lumbar spine. There are no acute findings in the visualized portions of the abdomen. There is atherosclerotic calcification along the abdominal aorta and iliac arteries. There is multilevel spondylosis. For example, there is a disc bulge, ligamentous thickening and facet degenerative change at L3-4 that results in moderate to severe central stenosis. There is a right paracentral disc bulge at L4-5, as well as moderate to severe bilateral neural foraminal narrowing. The visualized sacrum and bony pelvis are intact. Procedure Note Andrew Rodriguez MD - 07/31/2024 CT LUMBAR SPINE WO CONTRAST 07/30/2024 9:30 PM CLINICAL INDICATION: Compression fracture, lumbar. COMPARISON: CT chest, abdomen and pelvis dated 10/07/2023. TECHNIQUE: CT scan of the lumbar spine was performed without contrast. Coronal and sagittal reformatted images were generated. FINDINGS: There is generalized osteopenia. There is straightening of normal lumbar lordosis. T12, L1, L3, L4 and L5 compression deformities are unchanged compared with prior prior CT. There is near-complete loss of vertebral body height at L4, which is unchanged. There is no new compression deformity or acute osseous abnormality along the course of the lumbar spine. There are no acute findings in the visualized portions of the abdomen. There is atherosclerotic calcification along the abdominal aorta and iliac arteries. There is multilevel spondylosis. For example, there is a disc bulge, ligamentous thickening and facet degenerative change at L3-4 that results in moderate to severe central stenosis. There is a right paracentral disc bulge at L4-5, as well as moderate to severe bilateral neural foraminal narrowing. The visualized sacrum and bony pelvis are intact. IMPRESSION: 1. Multiple compression deformity along the lumbar spine, unchanged compared with prior CT dated 10/07/2023. 2. Multilevel lumbar spondylosis. 3. 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 4. L4-5 moderate to severe bilateral neural foraminal narrowing. For the purposes of bottle house quality control technician, this study was initially interpreted by teleradiology. There is no significant discrepancy. Electronically signed by: Andrew Rodriguez M.D. us Bradford Valencia MD IMG CT PROCEDURES Final Re sult * CT Cervical Spine WO Contrast (07/30/2024 9:44 PM DOMESTIC TECHNICIAN) Anatomical Region Laterality Modality Spine N/A Computed Tomogra phy 07/30/2024 9:30 PM DOMESTIC TECHNICIAN Impressions 07/31/2024 7:32 AM DOMESTIC TECHNICIAN 1. Multilevel cervical spondylosis. 2. No acute osseous abnormality. For the purposes of bottle house quality control technician, this study was initially interpreted by teleradiology. There is no significant discrepancy. Electronically signed by: Andrew Rodriguez M.D. Narrative 07/31/2024 7:[address] CERVICAL SPINE WO CONTRAST 07/30/2024 9:20 PM CLINICAL INDICATION: Trauma: fall now with t12 l1 pain and not walking. COMPARISON: CT chest, abdomen and pelvis dated 10/07/2023. TECHNIQUE: CT scan of the cervical spine was performed without contrast. Coronal and sagittal reformatted images were generated. FINDINGS: There is generalized osteopenia. There is preservation of normal vertebral body alignment. There is no compression deformity or acute osseous abnormality along the course of the cervical spine. There are anterior disc osteophytes at multiple levels. There are no acute findings in the visualized portions of the brain. There are no acute findings in the soft tissues of the neck. There is bilateral carotid atherosclerosis. There are multiple small clips along the right side of the neck. There is biapical pleural thickening. There is multilevel spondylosis. There is no high-grade central stenosis. Procedure Note Andrew Rodriguez MD - 02/26/2025 CT CERVICAL SPINE WO CONTRAST 07/30/2024 9:20 PM CLINICAL INDICATION: Trauma: fall now with t12 l1 pain and not walking. COMPARISON: CT chest, abdomen and pelvis dated 10/07/2023. TECHNIQUE: CT scan of the cervical spine was performed without contrast. Coronal and sagittal reformatted images were generated. FINDINGS: There is generalized osteopenia. There is preservation of normal vertebral body alignment. There is no compression deformity or acute osseous abnormality along the course of the cervical spine. There are anterior disc osteophytes at multiple levels. There are no acute findings in the visualized portions of the brain. There are no acute findings in the soft tissues of the neck. There is bilateral carotid atherosclerosis. There are multiple small clips along the right side of the neck. There is biapical pleural thickening. There is multilevel spondylosis. There is no high-grade central stenosis. IMPRESSION: 1. Multilevel cervical spondylosis. 2. No acute osseous abnormality. For the purposes of bottle house quality control technician, this study was initially interpreted by teleradiology. There is no significant discrepancy. Electronically signed by: Andrew Rodriguez M.D. Bradford Valencia MD IMG CT PROCEDURES Final Re sult * XR Pelvis 1 or 2 Views (07/30/2024 9:09 PM DOMESTIC TECHNICIAN) Anatomical Region Laterality Modality Body, Pelvis N/A Computed Radiogr aphy 07/31/2024 9:03 AM DOMESTIC TECHNICIAN Impressions 07/31/2024 9:03 AM DOMESTIC TECHNICIAN Single view pelvis exam is submitted for interpretation without comparison. Evaluation is suboptimal due to superimposed support devices, partial collimation of the left femur out of the field of view, the patient rotation, and osteopenia. The femoral heads project in expected position. There is no pelvic diastases. No displaced pelvic fracture is observed. Electronically signed by: Fer Montaño M.D. Narrative 07/31/2024 9:03 AM DOMESTIC TECHNICIAN EXAMINATION: XR PELVIS 1 OR 2 VIEWS History: Trauma Procedure Note Fer Montaño MD - 07/31/2024 EXAMINATION: XR PELVIS 1 OR 2 VIEWS History: Trauma IMPRESSION: Single view pelvis exam is submitted for interpretation without comparison. Evaluation is suboptimal due to superimposed support devices, partial collimation of the left femur out of the field of view, the patient rotation, and osteopenia. The femoral heads project in expected position. There is no pelvic diastases. No displaced pelvic fracture is observed. Electronically signed by: Fer Montaño M.D. us Bradford Valencia MD IMG XR PROCEDURES Final Re sult * Troponin T high-sensitivity 2-hour (07/30/2024 8:24 PM DOMESTIC TECHNICIAN) Trop T hs 20 <=22 ng/L Comment: Interpretive Data For further hscTnT resources including the diagnostic algorithm and an aid in interpretation, copy and paste this link: [email or web address].testcatalog.org/[email or web address] Current Interpretive Data last revised 2020. Trop T hs delta 1 ng/L [facility] Trop T hs interp Insignificant [facility] Blood 07/30/2024 8:24 PM DOMESTIC TECHNICIAN 07/30/2024 8:31 PM DOMESTIC TECHNICIAN us Arnie Ma MD LAB BLOOD ORDERABLES Fin al Result [facility] [address] Department [place] [address] * XR Chest PA Lateral 2 Views (07/30/2024 5:45 PM DOMESTIC TECHNICIAN) Anatomical Region Laterality Modality Body, Chest N/A Computed Radiogr aphy 07/30/2024 6:22 PM DOMESTIC TECHNICIAN Impressions 07/30/2024 6:22 PM DOMESTIC TECHNICIAN Comparison chest radiograph 10/07/2023. Left hip including approach pacemaker defibrillator present with leads terminating the right atrium, right ventricle, and coronary vein. Median sternotomy wires are intact and in alignment. Surgical clips throughout the mediastinum unchanged from prior. Unchanged large hiatal hernia containing a gas and fluid-filled stomach. There is moderate bibasilar atelectasis. New small right-sided effusion. No pneumothorax. Heart size and mediastinal contours are stable. Electronically signed by: John Garsia MD, PHD Narrative 07/30/2024 6:22 PM DOMESTIC TECHNICIAN EXAMINATION: XR CHEST PA LATERAL 2 VIEWS Procedure Note John Garsia MD PhD - 07/30/2024 EXAMINATION: XR CHEST PA LATERAL 2 VIEWS IMPRESSION: Comparison chest radiograph 10/07/2023. Left hip including approach pacemaker defibrillator present with leads terminating the right atrium, right ventricle, and coronary vein. Median sternotomy wires are intact and in alignment. Surgical clips throughout the mediastinum unchanged from prior. Unchanged large hiatal hernia containing a gas and fluid-filled stomach. There is moderate bibasilar atelectasis. New small right-sided effusion. No pneumothorax. Heart size and mediastinal contours are stable. Electronically signed by: John Garsia MD, PHD Bradford Valencia MD IMG XR PROCEDURES Final Re sult * Troponin T high-sensitivity series (baseline, 2hr, 4hr, 6hr) (07/30/2024 5:26 PM DOMESTIC TECHNICIAN) Pathologist [facility] Trop T hs 19 <=22 ng/L Comment: Interpretive Data For further hscTnT resources including the diagnostic algorithm and an aid in interpretation, copy and paste this link: https://nrl.testcatalog.org/show/[email or web address] Current Interpretive Data last revised 2020. Blood 07/30/2024 5:26 PM DOMESTIC TECHNICIAN 07/30/2024 5:38 PM DOMESTIC TECHNICIAN Bradford Valencia MD LAB BLOOD ORDERABLES Final Result [facility] [address] Department [place] [address] * eGFR (07/30/2024 5:26 PM DOMESTIC TECHNICIAN) Pathologist [facility] eGFR 75 >=60 mL/min/1. 73 m2 Comment: Interpretive Data Reference Interval Normal >/= 90 mL/min/1.73m2 Mildly decreased* 60 - 89 mL/min/1.73m2 Mildly to moderately decreased 45 - 59 mL/min/1.73m2 Moderately to severely decreased 30 - 44 mL/min/1.73m2 Severely decreased 15 - 29 mL/min/1.73m2 Kidney Failure < 15 mL/min/1.73m2 *Relative to young adult level Estimated glomerular filtration rate is determined by the 2020 CKD-EPI equation recommended by the National Kid[employer] (A Unifying Approach to GFR Estimation: Recommendations of the NKF-ASK Task Force on Reassessing the Inclusion of Race in Diagnosing Kidney Disease, JASN 2020). The CKD-EPI equation should not be used for patients with unstable renal function and has not been validated in children and those over 70. Current interpretive data was last reviewed 2021. Blood 07/30/2024 5:26 PM DOMESTIC TECHNICIAN 07/30/2024 5:38 PM DOMESTIC TECHNICIAN us Bradford Valencia MD LAB BLOOD ORDERABLES Final Result [facility] [address] Department [place] [address] * Differential, auto (07/30/2024 5:26 PM DOMESTIC TECHNICIAN) Neutrophil abs 5.2 1.5 - 6.5 K/cumm Imm gran abs 0.0 0.0 - 0.1 K/cumm [facility] Lymphocyte abs 1.4 0.8 - 3.3 K/cumm [facility] Monocyte abs 0.7 0.2 - 0.8 K/cumm [facility] Eosinophil abs 0.2 0.0 - 0.5 K/cumm [facility] Basophil abs 0.0 0.0 - 0.1 K/cumm [facility] Neutrophil pct 68.9 % [facility] Comment: Interpretive Data Percent cell count reference ranges are not reported, since discordance with absolute values may lead to misinterpretation of CBC data. Current Interpretive Data was last revised on 2017. Imm gran pct 0.3 % [facility] Comment: Interpretive Data Percent cell count reference ranges are not reported, since discordance with absolute values may lead to misinterpretation of CBC data. Current Interpretive Data was last revised on 2017. Lymphocyte pct 18.9 % [facility] Comment: Interpretive Data Percent cell count reference ranges are not reported, since discordance with absolute values may lead to misinterpretation of CBC data. Current Interpretive Data was last revised on 2017. Monocyte pct 8.7 % [facility] Comment: Interpretive Data Percent cell count reference ranges are not reported, since discordance with absolute values may lead to misinterpretation of CBC data. Current Interpretive Data was last revised on 2017. Eosinophil pct 2.8 % [facility] Comment: Interpretive Data Percent cell count reference ranges are not reported, since discordance with absolute values may lead to misinterpretation of CBC data. Current Interpretive Data was last revised on 2017. Basophil pct 0.4 % [facility] Comment: Interpretive Data Percent cell count reference ranges are not reported, since discordance with absolute values may lead to misinterpretation of CBC data. Current Interpretive Data was last revised on 2017. Blood 07/30/2024 5:26 PM DOMESTIC TECHNICIAN 07/30/2024 5:38 PM DOMESTIC TECHNICIAN us Bradford Valencia MD LAB BLOOD ORDERABLES Final Result [facility] [address] Department [place] [address] * Respiratory pathogen panel Nasopharyngeal (07/30/2024 5:26 PM DOMESTIC TECHNICIAN) Pathologist [facility] Influenza A RNA Not Detected Not Detected [facility] Influenza B RNA Not Detected Not Detected [facility] RSV RNA Not Detected Not Detected [facility] COVID-19 RNA Not Detected Not Detected [facility] Coronavirus 229E RNA Not Detected Not Detected [facility] Coronavirus HKU1 RNA Not Detected Not Detected [facility] Coronavirus NL63 RNA Not Detected Not Detected [facility] Coronavirus OC43 RNA Not Detected Not Detected [facility] Adenovirus DNA Not Detected Not Detected [facility] Metapneumovirus RNA Not Detected Not Detected [facility] Rhinovirus/Enterov irus RNA Not Detected Not Detected [facility] Parainfluenza 1 RNA Not Detected Not Detected [facility] Parainfluenza 2 RNA Not Detected Not Detected [facility] Parainfluenza 3 RNA Not Detected Not Detected [facility] Parainfluenza 4 RNA Not Detected Not Detected [facility] B. pertussis DNA Not Detected Not Detected [facility] B. parapertussis DNA Not Detected Not Detected [facility] C. pneumoniae DNA Not Detected Not Detected [facility] M. pneumoniae DNA Not Detected Not Detected [facility] Comment: Interpretive Data The Where Was it Filmed FilmArray Respiratory Panel (RP2.1) assay is a multiplexed real-time PCR based nucleic acid test capable of simultaneous qualitative detection and identification of multiple respiratory viral and bacterial nucleic acids, including SARS Coronavirus 2 (the causative agent of COVID-19). The following bacteria, viruses and virus subtypes can be identified using the FilmArray RP2.1 assay: Bordetella pertussis, Bordetella parapertussis, Chlamydia pneumoniae, Mycoplasma pneumoniae, Adenovirus, SARS Coronavirus 2, seasonal coronaviruses (Coronavirus HKU1, Coronavirus NL63, Coronavirus 229E, and Coronavirus OC43), Influenza A, Influenza A subtype H1, Influenza A subtype H3, Influenza A subtype 2009 H1, Influenza B, Metapneumovirus, Parainfluenza 1, Parainfluenza 2, Parainfluenza 3, Parainfluenza 4, RSV, Rhinovirus/Enterovirus. Due to the genetic similarity between human Rhinovirus and Enterovirus, the FilmArray RP2.1 assay cannot reliably differentiate them. Coronavirus OC43 may cross-react with some isolates of Coronavirus HKU1. A dual positive result may be due to cross-reactivity or may indicate a co- infection. The detection and identification of specific viral and bacterial nucleic acids from individuals exhibiting signs and symptoms of a respiratory infection aids in the diagnosis of respiratory infection if used in conjunction with other clinical and epidemiological information. The results of this test should not be used as the sole basis for diagnosis, treatment, or other management decisions. Negative results in the setting of a respiratory illness may be due to infection with pathogens that are not detected by this test. Positive results do not rule out infection/co-infection with other organisms. The agent(s) detected by the FilmArray RP2.1 may not be the definite cause of disease. Additional testing (lab, imaging, etc.) may be necessary when evaluating a patient with possible respiratory tract infection. The FilmArray RP2.1 assay has FDA clearance for testing of GYMNASTIC COACH swabs. The performance characteristics of this assay have been determined by [facility]. Current interpretive data was last revised on 2020. Nasopharyngeal 07/30/2024 5: 26 PM DOMESTIC TECHNICIAN 07/30/2024 5:42 PM DOMESTIC TECHNICIAN Narrative [facility] - 07/30/2024 6:33 PM DOMESTIC TECHNICIAN Is the Patient experiencing symptoms consistent with COVID?->Yes Surveillance testing for transplant patient?->No us Bradford Valencia MD LAB MICROBIOLOGY - GENERAL ORDERABLES Final Result [facility] [address] Department [place] [address] [facility] * (ABNORMAL) CBC with auto differential (07/30/2024 5:26 PM DOMESTIC TECHNICIAN) Pathologist [facility] WBC 7.5 3.8 - 9.9 K/cumm Hgb 14.5 13.0 - 17.5 g/dL [facility] Hct 45.0 38.9 - 50.3 % [facility] Plt 211 150 - 400 K/cumm [facility] MPV 10.3 9.1 - 12.3 fL [facility] RBC 4.76 4.30 - 5.80 M/cumm [facility] MCV 94.5 81.3 - 96.4 fL [facility] MCH 30.5 27.1 - 33.3 pg [facility] MCHC 32.2(L) 32.3 - 35.7 g/dL [facility] RDW CV 14.7 11.1 - 14.9 % [facility] RDW SD 51.4(H) 35.7 - 48.1 fL [facility] NRBC abs 0.00 0.00 - 0.01 K/cumm [facility] Blood Venous blood specimen / Unknown 07/30/2024 5:26 PM DOMESTIC TECHNICIAN 07/30/2024 5:38 PM DOMESTIC TECHNICIAN us Bradford Valencia MD LAB BLOOD ORDERABLES Final Result [facility] [address] Department [place] [address] * (ABNORMAL) Comprehensive metabolic panel (07/30/2024 5:26 PM DOMESTIC TECHNICIAN) Sodium 139 135 - 145 mmol/L Potassium, pl 3.8 3.3 - 4.9 mmol/L [facility] Chloride 105 97 - 110 mmol/L [facility] CO2 23 22 - 32 mmol/L [facility] Anion gap 11 2 - 15 mmol/L [facility] BUN 19 6 - 25 mg/dL [facility] Creatinine 0.97 0.80 - 1.30 mg/dL [facility] Glucose 100 70 - 199 mg/dL [facility] Comment: Interpretive Data Fasting glucose >/= 126 mg/dl is diagnostic for diabetes. Fasting is defined as no caloric intake for at least 8 hours. Fasting glucose between 100 mg/dl to 125 mg/dl is diagnostic of prediabetes. In a patient with classic symptoms of hyperglycemia or hyperglycemic crisis, a random glucose >/= 200 mg/dl is diagnostic for diabetes. In the absence of unequivocal hyperglycemia, results should be confirmed by repeat testing. The classification and Diagnosis of Diabetes Diabetes Care 2021; 46: S19-S40. Current interpretive data was last revised 2022. Calcium 8.7 8.5 - 10.3 mg/dL [facility] Bilirubin, total 1.2 0.1 - 1.2 mg/dL [facility] Protein, pl 6.2(L) 6.5 - 8.5 g/dL [facility] Albumin 3.2(L) 3.5 - 5.0 g/dL [facility] Alk phos 120 40 - 130 Units/L [facility] ALT 10 7 - 55 Units/L [facility] AST 30 10 - 50 Units/L [facility] Comment:Slightly Hemolyzed S pecimen Blood 07/30/2024 5:26 PM DOMESTIC TECHNICIAN 07/30/2024 5:38 PM DOMESTIC TECHNICIAN us Bradford Valencia MD LAB BLOOD ORDERABLES Final Result Performing Organization Address [facility] [employer] de Phone Number [facility] [address] Department [place] [address] * ECG 12 lead (07/30/2024 5:20 PM DOMESTIC TECHNICIAN) 07/30/2024 5:20 PM DOMESTIC TECHNICIAN Narrative [facility] - 07/31/2024 10:01 AM DOMESTIC TECHNICIAN Vent Rate: 89 bpm RR Interval: 674 msec IN Interval: 131 msec QRS Duration: 127 msec QT Interval: 396 msec QTC Interval: 442 msec P-R-T [place]: 38 - 249 - 62 degrees IMPRESSION: ELECTRONIC VENTRICULAR PACEMAKER THE UNDERLYING RHYTHM IS SINUS ABNORMAL ECG Electronically Signed By: Bradford Johnson MD [facility] Bradford Valencia MD ECG ORDERABLES Final Resu lt Performing Organization Address [facility] de Phone Number [facility] Jini [facility] * DEVICE CHECK - REMOTE (07/08/2024 11:23 AM DOMESTIC TECHNICIAN) Anatomical Region Laterality Modality Other Narrative 07/18/2024 8:34 AM DOMESTIC TECHNICIAN Table formatting from the original result was not included. BiV ICD CHECK (REMOTE) Patient ID: Jose Shaw is a 89 y.o. male. This patient received a [employer] scientific BiV ICD. They had a routine [...] 11.8 seconds. Episodes last 90 days/Comments: AF Stem less than 1 %, there were numerous [...] MEDICATIONS: Anti-coagulant(s): None Anti-arrhythmic(s): None PLAN: 1) [employer] scientific BiV ICD evaluation 2) [employer] scientific remote transmission scheduled in 3 months. 3) Programming appropriate for device settings Ez Chavez RN Alber Lynn MD CV CARDIAC SERVICES PRO CEDURES Final Result from Last 3 Months Insurance MEDICARE MEDICARE [facility] [address] [place] [address] [place] [address] MEDICARE Advance Directives For more information, please contact: [phone] * LIMITED - No CPR (Latest Code Status on File) Date Activated Date Inactivated Comments 07/31/2024 2:21 PM 08/06/2024 3:28 AM Question Answer Comments Provide aggressive medical m anagement before a full cardiopulmonary arrest occurs. Use antibiotics, IV Fluids, and medical treatment unless specifically selected below: No intubationNo cardioversion Discussed with the following attending physician: ha brito * Full Code Date Activated Date Inactivated Comments 07/31/2024 12:42 AM 07/31/2024 2:21 PM Care Teams Pallet Assembler Relationship Specialty Start Date End Date Isabel Bowen MD [address] [address] PCP - General 09/02/16 Miscellaneous, Not In File 08/05/24
--- OUTSIDE RECORDS SUMMARY | 2024-08-25 09:35 | XMS_ITS | Data Portability ---
Author Organization [facility], Main Office Address [address] [place] [address] Care Team Providers Care Donor Relations Coordinator Name Role Phone P [facility] FAX OTHER ISABEL DODD Primary Care Provider Assessment Encounter Date Assessment Date Assessment LastModified by Organization Details LastModified Time 08/07/2024 08/07/2024 correct antibiotic order - keflex entered x 7 days rather than 7 doses, dc acidophilus f/u labs [email or web address] Not available 08/12/2024 05:11:50 08/13/2024 08/13/2024 Pt refused labs from this morning. Discussed again today and he is willing to have redrawn tomorrow morning. Lab will attempt again. Not available 08/13/2024 15:20:19 08/20/2024 08/20/2024 Unfortunately pt continues to refuse lab draws. Not available 08/20/2024 14:12:47 08/23/2024 08/23/2024 Unfortunately pt continues to refuse lab draws, therapies, and to eat and drink. Nursing is discussing palliative options with family. Not available 08/23/2024 12:24:14 Plan of Treatment Reminders Order Date Submit Date Provider Last Modified By Organization Details Last Modified Time Details Appointments None record ed. Lab None record ed. Referral None record ed. Procedures None record ed. Surgeries None record ed. Imaging None record ed. Medication Orders None record ed. Patient TargetsNo targets recorded. Patient Instructions Encounter Date Encounter Id Patient Instructions Last Modified By Organization Details Last Modified Time 08/07/2024 [id number] called the patient's daughter, Casandra Malone, to discuss plan of care, discharge plans and confirm code status. I spent {{ >50#}} minutes providing care to the patient today. More than 50% of that time was spent in discussing the expected course of the disease, discussing prognosis, coordinating care and counseling of the patient/family. I spent {{16 17 18 19 20 21 22* 23 24 25}} minutes counseling and discussing advance directives and/or end of life care planning and decisions with the {{patient surroga te patient and surrogate*}} today. I reviewed the current relevant diagnoses, treatment options, natural history, and prognosis and clarified the patient's goals of care. code status is DNR, treatment goals are for conservative measures /avoiding multiple meds - family open to hospice services but would like to see if the patient can progress with therapy and return home with services [email or web address] Not available 08/12/2024 05:27:24 08/13/2024 [id number] I spent {{ 34#}} minutes providing care to the patient today. More than 50% of that time was spent in discussing the expected course of the disease, discussing prognosis, coordinating care and counseling of the patient/family. Not available 08/13/2024 15:23:59 08/20/2024 [id number] I spent {{ 33#}} minutes providing care to the patient today. More than 50% of that time was spent in discussing the expected course of the disease, discussing prognosis, coordinating care and counseling of the patient/family. Not available 08/20/2024 14:13:01 08/23/2024 [id number] I spent {{ 35#}} minutes providing care to the patient today. More than 50% of that time was spent in discussing the expected course of the disease, discussing prognosis, coordinating care and counseling of the patient/family. Not available 08/23/2024 12:25:28 Reason for Referral None Reported. Results Created Date Observation Date Name Description Value Unit Range Abnormal Flag Note LastModifiedBy Organization Detail LastModifiedTime 08/25/1908/24/2024 imagi ng/jocelyn schaffer tic resul t No observ ation record ed. [facility] ([employer]) [address], [place], [address], 08/24/2024 20:03:54 Result Notes None recorded. Procedures Surgical History Date Name Laterality Status Provider Name and Address Organization Details Recorded Time implantation of internal cardiac defibrillator completed Joe Butts [facility] 08/07/2024 01:59:46 carotid endarterectomy completed Joe Butts [facility] 08/07/2024 02:00:16 coronary artery bypass grafts x 3 completed Joe KAMARA [facility] 08/07/2024 02:00:27 resection of polyp completed Joe Beckie [facility] 08/07/2024 02:00:35 Imaging Results Imaging Date Name Status LastModified by Organiz ation Details LastModified Time 08/24/2024 imaging/diagn ostic result active [employer] [facility] ([employer]) [address], [place], [address], 08/24/2024 20:03:54 Procedure Notes None recorded. Medical Equipment None Reported. Allergies No known drug allergies Medications Name Sig Start Date Stop Date Status Note LastModified by Organization Details LastModified Time naproxen 375 mg tablet Take 1 tablet twice a day by oral route as needed. active Not Available Not Available No t Available acetaminop hen 500 mg tablet Take 2 tablets 3 times a day by oral route. active Not Available Not Available No t Available cephalexin 500 mg capsule Take 1 capsule twice a day by oral route. 08/13 completed x 7 doses Not Available Not Available Not Available ondansetro n 4 mg disintegra ting tablet Place 1 tablet every 6 hours by transling ual route as needed. active Not Available Not Available No t Available acetaminop hen 500 mg capsule Take 2 capsules 3 times a day by oral route as needed. 08/12 completed Not Available Not Available Not Available Senna Plus 8.6 mg-50 mg tablet Take 1 tablet twice a day by oral route. active Not Available Not Available No t Available mirtazapin e 7.5 mg tablet Take 1 tablet every day by oral route for 7 days. active then [08/24] take 15 mg by mouth at bedtim e. Not Available Not Available Not Available Vitals Date Recorded Heart rate Body temperature Respiratory rate Oxygen saturation Oxygen saturation in Arterial blood by Pulse oximetry Body weight Body mass index (BMI) Body height Systolic blood pressure Diastolic blood pressure Provider Name and Address Organization Details Last Updated DateTime 5 72 /min 98.1 [degF] 18 /min 97 % 97 % 46287.6 9 g 21.2 kg/m2 170.18 cm 145 mm[Hg] 66 mm[Hg] Sherrie Esparza [address] [place], [address], [place] [employer] 5 06:14:43 Date Recorded Body height Heart rate Body temperature Respiratory rate Oxygen saturation Oxygen saturation in Arterial blood by Pulse oximetry Body mass index (BMI) Body weight Systolic blood pressure Diastolic blood pressure Provider Name and Address Organization Details Last Updated DateTime 5 170.18 cm 70 /min 98 [degF] 20 /min 97 % 97 % 20.4 kg/m2 11823.0 1 g 118 mm[Hg] 49 mm[Hg] [place] [address] [place], [address], [place] [facility] [employer] 5 15:11:48 Date Recorded Body height Heart rate Body temperature Respiratory rate Oxygen saturation Oxygen saturation in Arterial blood by Pulse oximetry Body mass index (BMI) Body weight Systolic blood pressure Diastolic blood pressure Provider Name and Address Organization Details Last Updated DateTime 5 170.18 cm 92 /min 98 [degF] 20 /min 98 % 98 % 19.7 kg/m2 30212.9 2 g 111 mm[Hg] 51 mm[Hg] [place] [address] [place], [address], [place] [facility] [employer] 5 14:06:43 Date Recorded Body height Body temperature Heart rate Respiratory rate Oxygen saturation Oxygen saturation in Arterial blood by Pulse oximetry Body mass index (BMI) Body weight Systolic blood pressure Diastolic blood pressure Provider Name and Address Organization Details Last Updated DateTime 5 170.18 cm 97.4 [degF] 98 /min 18 /min 98 % 98 % 19.5 kg/m2 68330.3 3 g 120 mm[Hg] 61 mm[Hg] [place] [address] [place], [address], [place] [employer] 12:15:41 Social History Question Answer Notes LastModified by Organizat ion Details LastModified Time Tobacco Smoking Status Former Smoker Joe Butts null, [place] [facility] 08/07/2024 02:02:07 What Is Your Level Of Alcohol Consumption? None Information not available 08/07/2024 What Is Your Code Status? DNR Information not available 08/07/2024 When Did You Quit Smoking? 16+yearssin celastjosh ette Information not available 08/07/2024 Do You Use Any Illicit Or Recreational Drugs? No Information not available 08/07/2024 Sex: Unknown Functional Status None recorded. Mental Status None recorded. Family History Relationship Description Onset Age of this Age Resolved Age Notes LastModified by Organization Details LastModified Time Father Renal failure syndrome kidney failur e Not available 08/07/2024 02:00:54 Brother Coronary arterioscler osis Not available 2024 02:01:02 Brother Congestive heart failure Not available 2024 02:01:42 Unspecified Relation Coronary arterioscler osis Palm [place] artery diseas e Not available 08/07/2024 02:01:26 Medical History Condition Response Diverticulosis Y Coronary Artery Disease (CAD) Y Psychiatric -- Depression Y Hyperlipidemia Y GERD / Reflux Y Hypertension Y Past Encounters Encounter ID Performer Location Encounter Start Date Encounter Closed Date Diagnosis/Indication Diagnosis SNOMED-CT Code Diagnosis ICD10 Code Diagnosis Note [id number] Sherrie Esparza [place] [address] [place] [address] 08/07/2024 21:47:02 08/25/2024 06:07:37 Acute urinary tract infection 904102066 N39.0 urine culture 07/31 with significan t colony counts of proteuscon tinue keflex as ordered - corrected to 7 more doses rather than 7 days Coronary arteriosclerosis 09623698 I25.10 currently no chest pain - the patient does not take any outpatient medication s related to thishe has not been routinely following with cardiology aside from his necessary device checks related to his AICDmonito r clinically Essential hypertension 99035440 I10 he is not on outpatient medication s related to thistrend blood pressures and monitor for the need to resume medication s Hyperlipidemia 53593287 E78.5 no longer on medication s related to the this Major depr essive disorder 385771434 F32.9 monitor mood - no outpatient medication s related to this Fall W19.XXXD continue fall precaution scheck thyroid studies, vitamin D and B12 levels with next lab draw 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 - he is followed by cardiology at [facility] t f/u Abrasion o f skin of upper arm 330852080 S40.819D monitor for secondary infection, continue daily wound care Compressio n fracture of vertebral column 38789120 M48.50XD multiple chronic compressio n fractures of the thoracic and lumbar spine noted on spinal imaging on hospital admissionc ontinue supportive carepain control with routine tylenol and prn naproxen for now (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)the patient and family would like to avoid stronger pain medication s at this timecould add lidoderm patches if needed Physical deconditioning 2027551295 9102 R68.89 related to advanced age, recent fall, comorbidit iestherapi es in place, monitor progress - goal is for patient to return home as soon as possible with family / hired caregiver support [id number] Luciana Angel NP [address] [address] 08/13/2024 10:22:02 08/25/2024 06:05:35 Acute urinary tract infection 614049453 N39.0 Urine culture on 07/31 with significan t colony counts of proteus.Co mpleted Keflex as ordered (08/14).Mon itor for recurrence . Pt denies symptoms today. Coronary arteriosclerosis 25158444 I25.10 Currently no chest pain. Patient does not take any outpatient medication s related to this. He has not been routinely following with cardiology aside from his necessary device checks related to his AICD.Monit or clinically . Essential hypertension 92209158 I10 Not on outpatient medication s related to this.Monserrat nue to trend blood pressures, monitor lytes and renal function, and add meds as clinically indicated. Hyperlipidemia 55696505 E78.5 No longer on medication s related to the this. Major depr essive disorder 846168428 F32.9 Monitor mood. No outpatient medication s related to this. Abrasion o f skin of upper arm 772235030 S40.819D Monitor for secondary infection. Continue daily wound care.Nathalie- sleeves to BUE are now in place. Fall W19.XXXD Continue fall precaution s.Checking thyroid studies, vitamin D and B12 levels with next lab draw. Ventricula r tachycardia 18170168 I47.20 s/p AICD placement in 2016.Follo wed by cardiology at [facility].Ne xt f/u on 10/07. Compressio n fracture of vertebral column 73621640 M48.50XD Multiple chronic compressio n fractures of the thoracic and lumbar spine noted on spinal imaging on hospital admission. Continue supportive care and pain control with routine tylenol and PRN Naproxen for now (would not choose to continue this medication prison due to risks).Pat ient and family would like to avoid stronger pain medication s at this time.Consi garrison addition of Lidoderm patches if needed. Physical deconditioning 4667592637 9102 R68.89 Related to advanced age, recent fall, comorbidit ies.Therap ies in place, monitor progress - goal is for patient to return home as soon as possible with family/hir ed caregiver support. [id number] Luciana Angel NP [address] [address] 08/20/2024 09:32:10 08/25/2024 06:06:17 Acute urinary tract infection 780431731 N39.0 Urine culture on 07/31 with significan t colony counts of proteus.Co mpleted Keflex as ordered (08/14).Mon itor for recurrence . Pt denies symptoms today. Compressio n fracture of vertebral column 21092870 M48.50XD Multiple chronic compressio n fractures of the thoracic and lumbar spine noted on spinal imaging on hospital admission. Continue supportive care and pain control with routine tylenol and PRN Naproxen for now (would not choose to continue this medication prison due to risks).Pat ient and family would like to avoid stronger pain medication s at this time.Consi garrison addition of Lidoderm patches if needed. Coronary arteriosclerosis 51014247 I25.10 Currently no chest pain. Patient does not take any outpatient medication s related to this. He has not been routinely following with cardiology aside from his necessary device checks related to his AICD.Monit or clinically . Hyperlipidemia 98483938 E78.5 No longer on medication s related to the this. Ventricula r tachycardia 92484778 I47.20 s/p AICD placement in 2017.Follo wed by cardiology at [facility].Ne xt f/u on 10/07. Major depr essive disorder 591010604 F32.9 Monitor mood. No outpatient medication s related to this. Abrasion o f skin of upper arm 033519486 S40.819D Monitor for secondary infection. Continue daily wound care.Nathalie- sleeves to BUE are now in place. Fall W19.XXXD Continue fall precaution s.Attempte d to check thyroid studies, vitamin D and B12 levels -- Unfortunat samantha pt continues to refuse lab draws. Physical deconditioning 7808383739 9102 R68.89 Related to advanced age, recent fall, comorbidit ies.Therap ies in place, monitor progress - goal is for patient to return home as soon as possible with family/hir ed caregiver support. History of hypertension 473213167 Z86.79 Not on outpatient medication s related to this.Monserrat nue to trend blood pressures, monitor lytes and renal function, and add meds as clinically indicated. [id number] Luciana Angel NP [address] [address] 08/23/2024 09:30:48 08/25/2024 06:07:00 Compression fracture of vertebral column 77372732 M48.50XD Multiple chronic compressio n fractures of the thoracic and lumbar spine noted on spinal imaging on hospital admission. 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 Coronary arteriosclerosis 99886840 I25.10 Currently no chest pain. Patient does not take any outpatient medication s related to this. He has not been routinely following with cardiology aside from his necessary device checks related to his AICD.Monit or clinically . Ventricula r tachycardia 94522870 I47.20 s/p AICD placement in 2017.Ruddy wed by cardiology at [facility].Ne xt f/u on 10/07. Major depr essive disorder 891934993 F32.9 Monitor mood. No outpatient medication s related to this. Abrasion o f skin of upper arm 991586505 S40.819D Monitor for secondary infection. Continue daily wound care.Nathalie- sleeves to BUE are now in place. Fall W19.XXXD Continue fall precaution s.Attempte d to check thyroid studies, vitamin D and B12 levels -- Unfortunat samantha pt continues to refuse lab draws. Hyperlipidemia 34100654 E78.5 No longer on medication s related to the this. Acute urin laura tract infection 539931853 N39.0 Urine culture on 07/31 with significan t colony counts of proteus.Co mpleted Keflex as ordered (08/14).Mon itor for recurrence . Pt denies symptoms today. History of hypertension 042212341 Z86.79 Not on outpatient medication s related to this.Monserrat nue to trend blood pressures, monitor lytes and renal function, and add meds as clinically indicated. Physical deconditioning 4081257051 9102 R68.89 Related to advanced age, recent fall, comorbidit ies.Therap ies in place, monitor progress - goal is for patient to return home as soon as possible with family/hir ed caregiver support. Noncomplia nce with therapeutic regimen 474643230 Z91.199 Kvng singh pt continues to refuse lab draws, therapies, and to eat and drink.Nurs ing is discussing palliative options with family. Health Concerns Section Related Observation LastModified by Organization Detai ls LastModified Time None Recorded Concern Status LastModified by Organization Details LastModified Time None Recorded Advance Directives Directive None Recorded Payers Encounter Date Sequence Insurance Name Policy Number Policy Henderson Covered Member ID Henderson Member ID Guarantor Name 08/07/2024 1 [place] Дмитрий Shaw [id number] Mayur Malone 08/13/2024 1 [place] Дмит[place] Shaw [id number] Mayur Malone 08/20/2024 1 [place] Дмит[place] Shaw [id number] Mayur Malone 08/23/2024 1 [place] Дмитрий Shaw [id number] 6 Mayur Malone Notes Date Note Type Note Provider Name and Address Organization Details Recorded Time 08/07/2024 text/html 89-year-old male with history of CAD, HTN, Gerd, Depression, HLD and paroxysmal atrial fibrillation admitted to [facility] for post acute rehab subsequent to an inpatient stay at [facility] 07/30-08/05/2024 following a fall. The patient initially fell on 07/27 at his home. He went to [facility] in [place] on the day of the fall - had labs and xrays which were un-revealing/negat dariusz per report (I do not have access to these records). He was discharged home but continued to have generalized and low back pain so returned to [facility] again 07/29 with negative testing and discharge home. He saw his PCP via telehealth visit 07/30 due to continued pain and safety concerns as he lives at home alone and was sent to [facility] ER for further testing. Imaging in the ER to include Chest x-ray, pelvis x-ray, CT cervical/lumbar/th oracic spine were negative for acute pathology. He was admitted to the hospitalist service for further management. He was treated with scheduled Tylenol and naproxen with improvement. He did have a positive urine culture during his stay (07/31 >100,000 CFU +proteus) treated with keflex which was to continue x 7 more doses upon hospital discharge. The patient initially refused therapy. Hospice was consulted and the plan was to discharge him home with hospice services. However, he is now agreeable to participate with therapy in hopes of getting stronger so that he can return home where he lives alone with his beloved cats. The patient is a fair historian - forgetful and not able to provide specific details related to his hospitalization. He denies significant pain at present. He says his back hurts when he gets up to walk but, otherwise, he is comfortable. He has skin tears to the UE with dressings in place. No new concerns or complaints. No nursing concerns. PCP Isabel Franklin is daughterCasandra - called her to discuss plan of care, confirm code statusthe patient lives alone in a home with a hired caregiver several hours / 7 days / week - the goal is for him to return there with likely increased [place] [address], [place], [address], [place] [facility] 08/12/2024 05:27:46 08/13/2024 text/html F/U fall with wi th weakness and low back pain, UTI, and chronic medical conditions.--- patient initially refused therapy. Hospice was consulted and the plan was to discharge him home with hospice services. However, he is now agreeable to participate with therapy in hopes of getting stronger so that he can return home where he lives alone with his beloved cats.The patient is a fair historian - forgetful and not able to provide specific details related to his hospitalization. He denies significant pain at present. He says his back hurts when he gets up to walk but, otherwise, he is comfortable. He has skin tears to the UE with dressings in place. No new concerns or complaints. No nursing concerns.POA is daughter, Casandra Malone - called her to discuss plan of care, confirm code statusthe patient lives alone in a home with a hired caregiver several hours/7 days a week - the goal is for him to return there with likely increased hired caregiver support.---08/13/24 Дмитрий is seated in his w/c in the common area, having just returned from therapy. His daughter Casandra arrives and we discuss with Дмитрий how he is doing. He denies pain or concerns today, is content to be drinking a soda with the assistance of his daughter. VSS. Staff is without concerns but they note that he refused his labwork this morning despite education on importance of labwork. I discuss with patient today and he is agreeable to a draw tomorrow morning. Per therapy notes on 08/13: Patient rode CUBII bike L2 x 10 minutes to improve strength, ROM and endurance. Cueing to remain and initate task. Patient performed standing trials at the parallel bars x2, 1-1.5 minutes per trial. Pt was able to pull up SBA. Patient performed pivot transfers requiring Yinka. Patient was made a 1 person pivot transfer in unit with nursing staff this date. Luciana Angel, ELDA [address] [facility], [place], [address], [facility] - [facility] 08/13/2024 15:24:12 08/20/2024 text/html F/U fall with wi th weakness and low back pain, UTI, and chronic medical conditions.--- patient initially refused therapy. Hospice was consulted and the plan was to discharge him home with hospice services. However, he is now agreeable to participate with therapy in hopes of getting stronger so that he can return home where he lives alone with his beloved cats.The patient is a fair historian - forgetful and not able to provide specific details related to his hospitalization. He denies significant pain at present. He says his back hurts when he gets up to walk but, otherwise, he is comfortable. He has skin tears to the UE with dressings in place. No new concerns or complaints. No nursing concerns.POA is daughter, Casandra Malone - called her to discuss plan of care, confirm code statusthe patient lives alone in a home with a hired caregiver several hours/7 days a week - the goal is for him to return there with likely increased hired caregiver support.---08/13/24 Дмитрий is seated in his w/c in the common area, having just returned from therapy. His daughter Casandra arrives and we discuss with Дмитрий how he is doing. He denies pain or concerns today, is content to be drinking a soda with the assistance of his daughter. VSS. Staff is without concerns but they note that he refused his labwork this morning despite education on importance of labwork. I discuss with patient today and he is agreeable to a draw tomorrow morning. Per therapy notes on 08/13: Patient rode CUBII bike L2 x 10 minutes to improve strength, ROM and endurance. Cueing to remain and initate task. Patient performed standing trials at the parallel bars x2, 1-1.5 minutes per trial. Pt was able to pull up SBA. Patient performed pivot transfers requiring Yinka. Patient was made a 1 person pivot transfer in unit with nursing staff this date. ---08/20/24Angel kwon is resting in his w/c in the common area, his daughter by his side. He is a fair historian, is reporting generalized aching pain for which he would like his PRN Tylenol. I let nursing know. He also reports he cannot recall when his last BM is. Staff do not have one documented. As such, will schedule cathartics and monitor closely. He otherwise appears to be doing fairly well. Casandra doesn't have any concerns. VSS. Staff is also without concerns beyond aforementioned. Luciana Angel, ELDA [address] [facility], [place], [address], [facility] 08/20/2024 14:13:20 08/23/2024 text/html F/U fall with wi th weakness and low back pain, UTI, and chronic medical conditions.--- patient initially refused therapy. Hospice was consulted and the plan was to discharge him home with hospice services. However, he is now agreeable to participate with therapy in hopes of getting stronger so that he can return home where he lives alone with his beloved cats.The patient is a fair historian - forgetful and not able to provide specific details related to his hospitalization. He denies significant pain at present. He says his back hurts when he gets up to walk but, otherwise, he is comfortable. He has skin tears to the UE with dressings in place. No new concerns or complaints. No nursing concerns.POA is daughter, Casandra Malone - called her to discuss plan of care, confirm code statusthe patient lives alone in a home with a hired caregiver several hours/7 days a week - the goal is for him to return there with likely increased hired caregiver support.---08/13/24 Дмитрий is seated in his w/c in the common area, having just returned from therapy. His daughter Casandra arrives and we discuss with Дмитрий how he is doing. He denies pain or concerns today, is content to be drinking a soda with the assistance of his daughter. VSS. Staff is without concerns but they note that he refused his labwork this morning despite education on importance of labwork. I discuss with patient today and he is agreeable to a draw tomorrow morning. Per therapy notes on 08/13: Patient rode CUBII bike L2 x 10 minutes to improve strength, ROM and endurance. Cueing to remain and initate task. Patient performed standing trials at the parallel bars x2, 1-1.5 minutes per trial. Pt was able to pull up SBA. Patient performed pivot transfers requiring Yinka. Patient was made a 1 person pivot transfer in unit with nursing staff this date. ---08/20/24Angel kwon is resting in his w/c in the common area, his daughter by his side. He is a fair historian, is reporting generalized aching pain for which he would like his PRN Tylenol. I let nursing know. He also reports he cannot recall when his last BM is. Staff do not have one documented. As such, will schedule cathartics and monitor closely. He otherwise appears to be doing fairly well. Casandra doesn't have any concerns. VSS. Staff is also without concerns beyond aforementioned.--- 08/23/24Дмитрий is resting in a recliner in the common area in a curled up, sidways position. I ask him if he is comfortable and he says he is, but he repositions himself to sit more upright. He reports generalized pain but denies a need for medication/interve ntion at this time. Nursing notes he has been consistently refusing therapy, eating and drinking very little, and he continues to refuse lab draws. He expresses that he wants to be left alone. He is happy to talk to me and asks for a coke to drink. Staff here have been discussing palliative options with pt's family. VSS. Staff is without concerns today. Luciana Angel, ELDA [address] [place], [address], [place] [facility] 08/23/2024 12:25:51
--- OUTSIDE RECORDS SUMMARY | 2024-08-25 09:35 | XMS_ITS | Continuity of Care Document ---
Author Name Auto Generated, Auto Generated Organization [employer] Support Name Relationship Address Phone Casandra Malone Daughter Unknown Unavailable Дмитрий Shaw [employer] [address] [place] [address] Дмитрий Shaw Self [address] [place] [address] Mayur Malone Son-in-Law Unknown Summary Purpose Consult/Referral Allergies, Adverse Reactions, Alerts No Known Allergies Medications Medications Prescription Date Begun Date Discontinued Status Associated Diagnoses Ordering Provider mirtazapine 15 mg tablet 1 Tablet 1 Time Daily 08/25/19 25 Active DO Sherrie Khan Stimulant Laxative Plus 8.6 mg-50 mg tablet 1 TABLET 2 Times Daily 08/21/19 25 Active DO Sherrie Khan ondansetron 4 mg disintegrating tablet 1 Tablet PRN Every 6 Hours 08/13/19 25 Active DO Sherrie Khan naproxen 375 mg tablet 1 tablet PRN 2 Times Daily 08/13/19 25 Active DO Sherrie Khan acetaminophen 500 mg tablet 2 tablets 3 Times Daily 08/07/19 25 Active DO Sherrie Khan Conditions/Problems Problem/Diagnosis Awareness of Diagnosis Code (ICD-10) Onset Date (Start Date) Resolution Date (End Date) Status Source Comments PRESENCE OF CARDIAC PACEMAKER Z95.0 025 08/07/2024 Resolved DO Sherrie Khan MAJOR DEPRESSIVE DISORDER, SINGLE EPISODE, UNSPECIFIED F32.9 025 Active DO Sherrie Khan COLLAPSED VERTEBRA, NOT ELSEWHERE CLASSIFIED, THORACIC REGION, SUBSEQUENT ENCOUNTER FOR FRACTURE WITH ROUTINE HEALING M48.54XD 025 Active DO Sherrie Khan HYPERTENSIVE CHRONIC KIDNEY DISEASE WITH STAGE 1 THROUGH STAGE 4 CHRONIC KIDNEY DISEASE, OR UNSPECIFIED CHRONIC KIDNEY DISEASE I12.9 025 08/07/2024 Resolved Madisynorn, DO Sherrie SPONDYLOSIS WITHOUT MYELOPATHY OR RADICULOPATHY, 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 Active Vandorn, DO Sherrie SPONDYLOSIS WITHOUT MYELOPATHY OR RADICULOPATHY, CERVICAL REGION M47.812 Active Vandorn, DO Sherrie PLEURAL EFFUSION, NOT ELSEWHERE CLASSIFIED J90 Active Vandorn, DO Sherrie UNSPECIFIED SEVERE PROTEIN-CALORIE MALNUTRITION E43 Active Vandorn, DO Sherrie LOW BACK PAIN, UNSPECIFIED M54.50 Active Vandorn, DO Sherrie SPONDYLOSIS WITHOUT MYELOPATHY OR RADICULOPATHY, LUMBAR REGION M47.816 Active Madisynorn, DO Sherrie 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 Active Madisynorn, DO Sherrie DEPRESSION, UNSPECIFIED F32.A 08/12/2024 Resolved DO Sherrie Khan ESSENTIAL (PRIMARY) HYPERTENSION I10 08/07/2024 Resolved Erin DO Sherrie PREDIABETES R73.03 Active Erin, DO Sherrie 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 Active Erin, DO Balderas HYPOTENSION, UNSPECIFIED I95.9 Active Erin, DO Sherrie HYPOCALCEMIA E83.51 Active DO Sherrie Khan TINEA UNGUIUM B35.1 Active Erin, DO Sherrie CHRONIC KIDNEY DISEASE, UNSPECIFIED N18.9 08/07/2024 Resolved Erin DO Sherrie CARDIAC MURMUR, UNSPECIFIED R01.1 025 Active Erin, DO Sherrie URINARY TRACT INFECTION, SITE NOT SPECIFIED N39.0 Active Erin DO Sherrie PROTEUS (MIRABILIS) (MORGANII) THE CAUSE OF DISEASES CLASSIFIED ELSEWHERE B96.4 Active DO Sherrie Khan 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 Active DO Sherrie Khan ACUTE PAIN DUE TO TRAUMA G89.11 025 Active DO Sherrie Khan STABLE BURST FRACTURE OF THIRD THORACIC VERTEBRA, SUBSEQUENT ENCOUNTER FOR FRACTURE WITH ROUTINE HEALING S22.031D 025 08/07/2024 Resolved DO Sherrie Khan POLYOSTEOARTHRITIS, UNSPECIFIED M15.9 025 Active DO Sherrie Khan UNSPECIFIED OPEN WOUND OF LEFT ELBOW, SUBSEQUENT ENCOUNTER S51.002D 025 Active DO Sherrie Khan UNSPECIFIED FALL, SUBSEQUENT ENCOUNTER W19.XXXD 025 Active DO Sherrie Khan COLLAPSED VERTEBRA, NOT ELSEWHERE CLASSIFIED, LUMBAR REGION, SUBSEQUENT ENCOUNTER FOR FRACTURE WITH ROUTINE HEALING M48.56XD 024 Active DO Sherrie Khan STABLE BURST FRACTURE OF THIRD THORACIC VERTEBRA, SEQUELA S22.031S 024 Active DO Sherrie Khan 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 021 Active DO Sherrie Khan DIAPHRAGMATIC HERNIA WITHOUT OBSTRUCTION OR GANGRENE K44.9 021 Active DO Sherrie Khan CHRONIC KIDNEY DISEASE, STAGE 3 UNSPECIFIED N18.30 018 Active DO Sherrie Khan ANEMIA, UNSPECIFIED D64.9 018 DO Sherrie Valles PRESENCE OF AORTOCORONARY BYPASS GRAFT Z95.1 017 DO Sherrie Valles PAROXYSMAL ATRIAL FIBRILLATION I48.0 017 DO Sherrie Valles PRESENCE OF AUTOMATIC (IMPLANTABLE) CARDIAC DEFIBRILLATOR Z95.810 017 DO Sherrie Valles I47.20 VENTRICULAR TACHYCARDIA, UNSPECIFIED I47.20 017 Active DO Sherrie Khan PRESENCE OF OTHER VASCULAR IMPLANTS AND GRAFTS Z95.828 014 Active DO Sherrie Khan I65.2- HYPERLIPIDEMIA, UNSPECIFIED E78.5 014 Active DO Sherrie Khan 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
--- OUTSIDE RECORDS SUMMARY | 2024-08-25 09:35 | XMS_ITS | Encounter Summary ---
Author Organization [facility] Address [address] [place] [address] Phone Care Team Providers Care Industrial Organization Manager Name Role Phone Isabel Bowen MD Primary Care Provider [phone] Nichol Montes APPLICATION SECURITY CONSULTANT Unavailable [phone] Dia Richards APPLICATION SECURITY CONSULTANT Unavailable [phone] Miscellaneous, Not In File Unavailable Unava ilable Jeison Wagner MD Unavailable [phone] Encounter Details Date Type Department Care Team (Late st Contact Info) Description 08/28/2017 Orders Only [facility] ProviderEz [place] [facility] [place] [address] Social History Tobacco Use Types Packs/Day Years Used Date Smoking Tobacco: Former Cigarettes Q uit: 1959 Smokeless Tobacco: Never Comments:Smoking History Pac ks/day: 2 Packs Alcohol Use Standard Drinks/Week Comments Yes 0 (1 standard drink = 0.6 oz pur e alcohol) Sex and Gender Information Value Date Recorded Sex Assigned at Not on file Legal Sex Male 10:40 AM CREDIT CARD CLERK Gender Identity Not on file Sexual Orientation [...] Suspected 10/07/2023 10/07/2023 10/07/2023 6:55 PM CDT COVID: Suspected 07/30/2024 07/30/2024 07/30/2024 6:34 PM CREDIT CARD CLERK documented as of this encounter Care Teams Industrial Organization Manager Relationship Specialty Start Date End Date Isabel Bowen MD [address] [address] PCP - General 09/02/16 Jeison Wagner MD [address] [place] [address] PCP - Hospice Attending 08/22/2408/22 Nichol Montes, [address] [place] [address] Worm Grower Valve Assembler 02/17/21 02/21/21 Dia Richards, [address] [place] [address] Worm Grower 04/12/22 05/16/22 Miscellaneous, Not In File 08/05/24 documented as of this encounter
--- OUTSIDE RECORDS SUMMARY | 2024-08-25 09:35 | XMS_ITS | Clinical Summary ---
Author Organization [facility] Address [address] [place] [address] Care Team Providers Care Prosthodontist Name Role Phone Isabel Bowen MD Primary Care Provider [phone] Miscellaneous, Not In File Unavailable Unava ilable Allergies No known active allergies Medications acetaminophen 500 mg capsule Take 2 capsules (1,000 mg total) by mouth 3 (three) times a day Slowly decrease frequency/dos e of this medication and change to as needed as your pain improves 08/06/19 25 Active naproxen (NAPROSYN) 375 mg tablet Take [...] 07/30/2024 Assessment & Plan (07/30/2024 1:17 PM TRIMMER LOADER): Mr. Shaw, with significant PMH, is an 89 year old that has stopped all medications as he wishes to live peacefully without them at home. I met him for the first time via telemedicine today and he was last seen in the office in 04/2022. He recently suffered a fall at home and EMS transported him to [facility]. I have no access to these records at the time of the appt. Skin tears to his elbows were dressed. Testing was negative and he was d/c home. He has some aid help during the day but not 24/ care. Daughter and son-in-law are on the telemedicine call today, as well. Due to diffuse pain they brought him back to [facility] yesterday and reportedly CT, x-rays, blood work, blood cultures, urine testing were all negative. We discussed at length home health services. After the telemedicine visit I called the son-in-law to discuss palliative care vs hospice care. They are not ready for hospice care but are interested in palliative care. [id number] appt was completed today via telemedicine and I'll place home health orders and palliative care orders. Fall 07/30/2024 Assessment & Plan (07/30/2024 1:17 PM TRIMMER LOADER): Home health PT/wound care ordered. Debilitated 07/30/2024 Assessment & Plan (07/30/2024 1:17 PM TRIMMER LOADER): Home health PT and palliative care ordered. Open wound of elbow 07/30/2024 Assessment & Plan (07/30/2024 1:17 PM TRIMMER LOADER): Home health wound care ordered. Intractable low [...] 05/18/2021 Assessment & Plan (05/19/2021 3:47 PM TRIMMER LOADER): Stable status post right carotid endarterectomy, asymptomatic. Continue same therapy. Continue diet and exercise. Right inguinal hernia 02/24/2021 Paroxysmal atrial fibrillation 05/05/2020 Assessment & Plan (05/19/2021 3:47 PM TRIMMER LOADER): Stable, very brief PAF and nonsustained VT noted on ICD check only, asymptomatic. Continue same therapy. Assessment & Plan (05/05/2020 12:38 PM TRIMMER LOADER): Stable, very brief PAF noted on ICD check only. Continue same therapy. VT (ventricular tachycardia) 05/05/2020 Assessment & Plan (05/05/2020 12:39 PM TRIMMER LOADER): Very brief nonsustained VT noted on ICD [...] 01/31/2017 Assessment & Plan (05/19/2021 3:46 PM TRIMMER LOADER): Stable, well compensated. Continue same therapy. Continue follow-up in the device clinic regarding his biventricular ICD. Assessment & Plan (05/05/2020 12:31 PM TRIMMER LOADER): Stable, moderate-severe left ventricular dysfunction, well compensated. Continue same therapy. His ICD check today will be reviewed, and further recommendations forthcoming then. Continue same therapy. Continue follow-up in the device clinic as well. Assessment & Plan (04/30/2019 2:12 PM TRIMMER LOADER): Stable, very well compensated. Continue same therapy. Continue follow-up in the device Clinic regarding his ICD. His ICD check today will be reviewed, and further recommendations forthcoming then. Assessment & Plan (04/24/2018 2:30 PM TRIMMER LOADER): Stable, very well compensated. Continue same therapy. Assessment & Plan (02/01/2017 1:31 PM CDT): Stable, well compensated status post biventricular ICD. Continue same therapy. He will continue to follow up in the device clinic as well. ICD (implantable cardioverte r-defibrillator), biventricular, in situ 01/09/2017 Overview (08/29/2017): [employer]ogen X4 DISABILITY SERVICES COORDINATOR-D implanted on 10/07/16 for ICM/CHF/LBBB. Leah Catalina Hassan Neuropathy 08/26/2016 Overview (10/28/2016): Neuropathy Coronary arteriosclerosis in [place] artery 10/19 Overview (09/09/2016): CRNRY ATHRSCL ELIZABETH VSSL Assessment & Plan (05/19/2021 3:46 PM TRIMMER LOADER): Stable, without angina. I made no change [...] standpoint. Assessment & Plan (05/05/2020 12:31 PM TRIMMER LOADER): Stable, without angina. I made no change in his excellent medical regimen today. I asked him to follow up with me annually, or sooner if needed. I again advised him to diet and exercise regularly. Assessment & Plan (04/30/2019 2:12 PM TRIMMER LOADER): Stable, without angina. I made no change in his excellent medical regimen today. I asked him to follow up with me annually, or sooner if needed. I again advised him to diet and exercise regularly. Assessment & Plan (04/24/2018 2:29 PM TRIMMER LOADER): Stable, without angina. I made no change [...] NEC/NOS Assessment & Plan (05/19/2021 3:48 PM TRIMMER LOADER): Lipids are well controlled. Continue high-intensity statin therapy. Assessment & Plan (05/05/2020 12:35 PM TRIMMER LOADER): Lipids are well controlled. Continue high-intensity statin therapy. Assessment & Plan (04/30/2019 2:13 PM TRIMMER LOADER): Lipids are well controlled. Continue high-intensity statin therapy. Assessment & Plan (10/25/2018 2:59 PM CDT): Patient has been off atorvastatin for some time. Will check cholesterol levels today before considering reinstatement of medication. Assessment & Plan (04/24/2018 2:31 PM TRIMMER LOADER): Lipids are very well controlled. Continue high-intensity [...] disease invo lving coronary bypass graft of [place] heart without angina pectoris 08/28/2017 04/20/2018 Assessment & Plan (08/28/2017 12:01 PM CDT): Patient sees sliver chopper once a year. He is on aspirin [...] 01/31/201704/17 Assessment & Plan (05/19/2021 3:47 PM TRIMMER LOADER): Systolic pressure is high today, but is well controlled in general. Continue same therapy. Continue diet and exercise. Assessment & Plan (05/05/2020 12:32 PM TRIMMER LOADER): Systolic pressure is high today, but is well controlled in general. Continue same therapy. Continue diet and exercise. Assessment & Plan (04/30/2019 2:13 PM TRIMMER LOADER): Blood pressure is well controlled. Continue same therapy. Continue diet and exercise. Assessment & Plan (04/24/2018 2:30 PM TRIMMER LOADER): Blood pressure is borderline today, but is [...] occlusion Assessment & Plan (05/05/2020 12:31 PM TRIMMER LOADER): Stable status post right carotid endarterectomy, asymptomatic. Continue same therapy. Assessment & Plan (04/30/2019 2:12 PM TRIMMER LOADER): Stable status post right carotid endarterectomy, asymptomatic. Continue same therapy. Continue diet and exercise. Assessment & Plan (04/24/2018 2:30 PM TRIMMER LOADER): Stable, status post right carotid endarterectomy without [...] Department Care Team Description 07/30/2024 8:14 PM TRIMMER LOADER - 08/05/2024 10:30 PM TRIMMER LOADER Hospital Encounter [facility] [address] [place] [address] Bradford Valencia MD Shimotani, Dorian Genki, Ha Blair DO Fall, initial encounter (Primary Dx); Closed stable burst fracture of third thoracic vertebra, initial encounter (HCC); Primary osteoarthritis involving multiple joints; Closed fracture of multiple thoracic vertebrae, initial encounter (HCC) Discharge Disposition: Discharge to [facility] 07/30/2024 12:00 PM TRIMMER LOADER Telemedicine [facility] Primary Care at [address] [place] [phone] Talia Quintero PA Diffuse pain (Primary Dx); Fall, subsequent encounter; Debilitated; Open wound of elbow, unspecified laterality, subsequent encounter 07/30/[address] [facility] Primary Care at [address] [place] [phone] Isabel Bowen MD Medical Question/Miscellaneou s 07/30/[address] [facility] Primary Care at [address] [place] [phone] Talia Quintero PA 07/30/[address] [facility] Primary Care at [address] [phone] Isabel Bowen MD 07/30/[address] [facility] Primary Care at [address] [place] [phone] Isabel Bowen MD Additional Services Or Orders 07/29/[address] [facility] Primary Care at [address] [place] [phone] Brunilda Solorzano NP 07/08/2024 12:15 PM TRIMMER LOADER Ancillary Procedure [facility] [address] [facility] [address] [place] [phone] ICD (implantable cardioverter-defibril lator), biventricular, in situ (Primary Dx); Cardiomyopathy, ischemic 07/08/2024 Orders Only [facility] [address] [facility] [address] [place] [phone] Alber Lynn MD Cardiomyopathy, ischemic (Primary Dx) [...] Medical History Medical History Date Comments Hypertension Depression Cardiovascular disease Gastroesophageal reflux disease Hx Other Medical 2008 benign adenomat ous polyp Hx Other Medical 10/2016 ICD Hyperlipidemia Hernia, inguinal Hiatal hernia Diverticulosis Paroxysmal atrial fibrillation (HCC) Pre-diabetes Family History Medical History Relation Name Comments [...] Date Smoking Tobacco: Former Cigarettes Q uit: 1958 Smokeless Tobacco: Never Tobacco Cessation:Counseling Given: Not Answered Comments:Smoking History Packs/day: 2 Packs Alcohol Use Standard Drinks/Week Comments Yes 0 (1 standard drink = 0.6 oz pur e alcohol) [facility] Utilities Answer Date Recorded In the past 12 months has e [place], gas, oil, or water [employer] threatened to shut off services in your [...] often do you attend chur ch or moravian services? More than 4 times per year 07/31/2024 Do you belong to any clubs o r organizations such as gnosticism groups, unions, fraternal or athletic groups, or [...] place to sleep or slept in a fpc (including now)? No 04/12/2022 PHQ-9 Answer Date [...] any time in the past 12 m [facility], were you homeless or living in a fpc (including now)? No 07/31/2024 Personal Safety Answer Date Recorded Have you ever been in or are you currently in a harmful physical or emotional relationship or is someone making you feel afraid or unsafe? Denies 07/30/2024 Sex and Gender Information Value Date Recorded Sex Assigned at Not on file Legal Sex Male 10:40 AM TRIMMER LOADER Gender Identity Not on file Sexual Orientation Not on file Obstetrics History Last Filed Vital Signs Vital Sign Reading Time Taken Comments Blood Pressure 140/62 08/05/2024 8:08 PM TRIMMER LOADER Pulse 78 08/05/2024 8:08 PM TRIMMER LOADER Temperature 36.6 C (97.8 F) 08/05/2024 8:08 PM TRIMMER LOADER Respiratory Rate 16 08/05/2024 8:08 PM TRIMMER LOADER Oxygen Saturation 97% 08/05/2024 8:08 PM TRIMMER LOADER Inhaled Oxygen Concentration - - Weight 63.6 kg (140 lb 3.4 oz) 07/31/2024 12:30 PM TRIMMER LOADER Height 170.2 cm (5' 7 ) 07/31/2024 1:40 AM TRIMMER LOADER Body Mass Index 21.96 07/31/2024 1:40 AM TRIMMER LOADER Plan of Treatment Health Maintenance Due Date Last Done Comments Hepatitis B Screening 1953 Zoster Vaccine (1 of 2) 1985 Depression Screening 04/11/2023 04/11/2022, 02/17/2021, 10/25/2018, Additional history exists Well Visit 65+ 04/11/2023 04/11/2022, 08/28/2017 Covid-19 Vaccine (3 - 2023-2 5 season) 2024 12/05/2020, 11/14/2020 Influenza Vaccine (#1) 2024 , 03/01/2018, 03/06/2017, Additional history exists Fall Risk Assessment 08/05/2025 08/05/2024, 04/11/2022, 02/17/2021, Additional history exists DTaP/Tdap/Td Vaccine (4 - Td or Tdap) 12/06/2031 12/05/2021, 01/08/2018, 04/28/2008 Pneumococcal vaccine 65+ Completed 018, 08/25/2015, 04/28/2008, Additional history exists Medical Devices Implanted Type [employer] Device Identifier Shelf Expiration Date Model / Serial / Lot Icd-10/07/2016 Implanted:10/2016 by Alber Lynn MD (Quantity not on file) ICD Chest Wall [employer] Description:[employer] DDD Inog en X4 DISABILITY SERVICES COORDINATOR-D implanted on 10/07/16 for ICM/CHF/LBBB. Leah Melly Procedures Procedure Name Priority Date/Time Associated Diagnosis Comments EGFR Routine 08/02/2024 5:13 AM TRIMMER LOADER BASIC METABOLIC PANEL Routine 08/02/2024 5:13 AM TRIMMER LOADER TRANSTHORACIC ECHO (TTE) COMPLETE W DOPPLER/CF WO CONTRAST Routine 08/01/2024 12:01 PM TRIMMER LOADER URINALYSIS, MICROSCOPIC ONLY STAT 07/31/2024 12:35 PM TRIMMER LOADER URINE CULTURE STAT 07/31/2024 12:35 PM TRIMMER LOADER URINALYSIS AND REFLEX TO MICROSCOPIC AND CULTURE STAT 07/31/2024 12:35 PM TRIMMER LOADER POCT GLUCOSE DEVICE Routine 07/31/2024 6 :00 AM TRIMMER LOADER EGFR Routine 07/31/2024 5:45 AM TRIMMER LOADER DIFFERENTIAL AUTO Routine 07/31/2024 5:4 5 AM TRIMMER LOADER CBC WITH AUTO DIFFERENTIAL Routine 07/31/2024 5:45 AM TRIMMER LOADER MAGNESIUM Routine 07/31/2024 5:45 AM TRIMMER LOADER BASIC METABOLIC PANEL Routine 07/31/2024 5:[address] THORACIC SPINE WO CONTRAST ED Urgent/IP Urgent 07/30/2024 9:[address] LUMBAR SPINE WO CONTRAST ED Urgent/IP Urgent 07/30/2024 9:[address] CERVICAL SPINE WO CONTRAST ED 07/30/2024 9:44 PM TRIMMER LOADER XR PELVIS 1 OR 2 VIEWS ED 07/30/2024 9:09 PM TRIMMER LOADER TROPONIN T HIGH-SENSITIVITY 2-HOUR Timed 07/30/2024 8:24 PM TRIMMER LOADER XR CHEST PA LATERAL 2 VIEWS ED 07/30/2024 5:45 PM TRIMMER LOADER EGFR STAT 07/30/2024 5:26 PM TRIMMER LOADER DIFFERENTIAL AUTO STAT 07/30/2024 5:2 6 PM TRIMMER LOADER TROPONIN T HIGH-SENSITIVITY SERIES (BASELINE, 2HR, 4HR, 6HR) STAT 07/30/2024 5:26 PM TRIMMER LOADER COMPREHENSIVE METABOLIC PANEL STAT 07/30/2024 5:26 PM TRIMMER LOADER CBC WITH AUTO DIFFERENTIAL STAT 07/30/2024 5:26 PM TRIMMER LOADER RESPIRATORY PATHOGEN PANEL STAT 07/30/2024 5:26 PM TRIMMER LOADER ECG 12-LEAD STAT 07/30/2024 5:20 PM TRIMMER LOADER DEVICE CHECK - REMOTE Routine 07/08/2024 11:23 AM TRIMMER LOADER Cardiomyopathy, ischemic from Last 3 Months Results * eGFR (08/02/2024 5:13 AM TRIMMER LOADER) eGFR 63 >=60 mL/min/1. 73 m2 Comment: [...] last reviewed 2021. Blood 08/02/2024 5:13 AM TRIMMER LOADER 08/02/2024 5:39 AM TRIMMER LOADER Ha Brito DO LAB BLOOD ORDERABLES Kenya martinez Result [facility] [address] Department [place] [address] * (ABNORMAL) Basic metabolic panel (08/02/2024 5:13 AM TRIMMER LOADER) Pathologist [facility] Sodium 140 135 - 145 mmol/L Potassium, pl 4.0 3.3 - 4.9 mmol/L [facility] Chloride 106 97 - 110 mmol/L [facility] CO2 23 22 - 32 mmol/L [facility] Anion gap 11 2 - 15 mmol/L [facility] BUN 37(H) 6 - 25 mg/dL [facility] Creatinine 1.12 0.80 - 1.30 mg/dL [facility] Glucose 86 70 - 199 mg/dL [facility] Comment: Interpretive Data Fasting glucose >/= 126 [...] 2022. Calcium 8.3(L) 8.5 - 10.3 mg/dL [facility] Blood 08/02/2024 5:13 AM TRIMMER LOADER 08/02/2024 5:39 AM TRIMMER LOADER us Bazgha Micah Ahmad DO LAB BLOOD ORDERABLES Kenya l Result [facility] [address] Department of Laboratories [place], [place] [id number] * TRANSTHORACIC ECHO (TTE) COMPLETE W DOPPLER/CF WO CONTRAST (08/01/2024 12:01 PM TRIMMER LOADER) [facility] LV EF 65 % CONS SCIMAGE Anatomical Region Laterality Modality Ultrasound 08/01/2024 11:0 2 AM TRIMMER LOADER Narrative 08/01/2024 1:04 PM TRIMMER LOADER [facility] [address] [place] [address] ECHOCARDIOGRAM Patient Name: JOSE SHAW : 1935 (89y 4m) Gender: M Study Date: 08/01/2024 11:02:32 AM Ht(Inch): 67 Wt(Lb): 139.99 BSA: 1.73 Printer Helper: Location: [address] Order Provider: HA BRITO BMI: 21.92 BP: [...] is not seen. Exam Interpreted: Read by Image Processing Engineer of the day to expedite patient care. [...] regurgitation. Electronically Signed By: Braulio Bautista MD [facility] 08/01/2024 1:03:51 PM TRIMMER LOADER Procedure Note Braulio Bautista MD - 08/01/2024 [place] [address] [place] [address] ECHOCARDIOGRAM Patient Name: JOSE SHAW : 1935 (89y 4m) Gender: M Study Date: 08/01/2024 11:02:32 AM Ht(Inch): 67 Wt(Lb): 139.99 BSA: 1.73 Printer Helper: Location: [id number] Order Provider: HA BRITO BMI: 21.92 BP: [...] is not seen. Exam Interpreted: Read by Image Processing Engineer of the day to expedite patientcare. CONCLUSIONS: [...] regurgitation. Electronically Signed By: Braulio Bautista MD [facility] 08/01/2024 1:03:51 PM TRIMMER LOADER Bazgha Micah Ahmad DO CV ECHO PROCEDURES Final Result * (ABNORMAL) Urinalysis reflex to microscopic and culture Urine (07/31/2024 12:35 PM TRIMMER LOADER) Color, ur Yellow Yellow Clarity, ur Turbid(A) Clear [facility] Specific gravity, ur 1.034(H) 1.003 - 1.030 [facility] pH, urine 8.5 [facility] Comment: Interpretive Data U rine pH is affected by diet, medications, systemic acid-base disturbances, and renal tubular function. pH may affect urinary stone formation. For example, urine pH below 6.0 may help reduce the tendency for calcium phosphate stones and pH greater than 6.0 may reduce the tendency for uric acid stone formation. Source: [facility] Current Interpretive Data was last revised on 2017 Protein, ur ql 2+(A) Negative [facility] Glucose, ur ql Negative Negative [facility] Ketones, ur 1+(A) Negative [facility] Bilirubin, ur Negative Negative [facility] Blood, ur 2+(A) Negative [facility] Urobilinogen, ur <2.0 <2.0 mg/dL [facility] Nitrite, ur Negative Negative [facility] Leukocyte esterase, ur 4+(A) Negative [facility] UA reflex comment Reflex to microscopic UA will be performed. [facility] Urine 07/31/2024 12:3 5 PM TRIMMER LOADER 07/31/2024 12:47 PM TRIMMER LOADER Bradford Valencia MD LAB MICROBIOLOGY - GENERAL ORDERABLES Final Result [facility] [address] Department [place] [address] * (ABNORMAL) Urinalysis, microscopic only (07/31/2024 12:35 PM TRIMMER LOADER) WBC, ur >50(A) 0 - 5 /HPF RBC, ur 11-20(A) 0 - 2 /HPF [facility] Bacteria, ur 2+(A) [facility] Triple phosphate crystals, ur 2+(A) [facility] Hyaline casts, ur 11-20(A) 0 - 10 /LPF [facility] Culture Reflex Comment Reflex to urine culture will be performed. [facility] Urine 07/31/2024 12:3 5 PM TRIMMER LOADER 07/31/2024 12:47 PM TRIMMER LOADER Bradford Valencia MD LAB URINE ORDERABLES Final Result Performing Organization Address City/State/[facility] Co de Phone Number [facility] [address] [place] [address] * (ABNORMAL) Urine culture Urine (07/31/2024 12:35 PM TRIMMER LOADER) Report Final Report: Greater than or equal to 100,000 colonies/ml of Proteus mirabilis (.) Organism PROTEUS MIRABILIS [facility] Urine 07/31/2024 12:3 5 PM TRIMMER LOADER 07/31/2024 3:41 PM TRIMMER LOADER Narrative [facility] - 08/02/2024 7:30 AM TRIMMER LOADER Urine culture reflexed based upon urinalysis results. [...] GENERAL ORDERABLES Final Result Performing Organization Address [facility] Co de Phone Number [facility] [address] [place] [address] * POCT glucose (07/31/2024 6:00 AM TRIMMER LOADER) Glucose, POC 84 70 - 199 mg/dL Comment: For Glucose values <35 mg/dl when Hematocrit is >60 mg/dl,the test may not accurately detect significant hypoglycemia,and testing in the Laboratory should be considered if clinically indicated. Blood 07/31/2024 6:00 AM TRIMMER LOADER 07/31/2024 6:00 AM TRIMMER LOADER Onel Reynoso DO LAB POCT ORDERABLES - DEVICE Final Result Performing Organization Address [facility] Co de Phone Number [facility] [address] Department [place] [address] * eGFR (07/31/2024 5:45 AM TRIMMER LOADER) eGFR 77 >=60 mL/min/1. 73 m2 Comment: [...] last reviewed 2021. Blood 07/31/2024 5:45 AM TRIMMER LOADER 07/31/2024 6:57 AM TRIMMER LOADER us Onel Reynoso DO LAB BLOOD ORDERABLES F inal Result [facility] [address] Department [place] [address] * Differential, auto (07/31/2024 5:45 AM TRIMMER LOADER) Neutrophil abs 4.4 1.5 - 6.5 K/cumm Imm gran abs 0.0 0.0 - 0.1 K/cumm [facility] Lymphocyte abs 1.0 0.8 - 3.3 K/cumm [facility] Monocyte abs 0.6 0.2 - 0.8 K/cumm [facility] Eosinophil abs 0.0 0.0 - 0.5 K/cumm [facility] Basophil abs 0.0 0.0 - 0.1 K/cumm [facility] Neutrophil pct 72.7 % [facility] Comment: Interpretive Data Percent cell count reference ranges are not reported, since discordance with absolute values may lead to misinterpretation of CBC data. Current Interpretive Data was last revised on 2017. Imm gran pct 0.5 % [facility] Comment: Interpretive Data Percent cell count reference ranges are not reported, since discordance with absolute values may lead to misinterpretation of CBC data. Current Interpretive Data was last revised on 2017. Lymphocyte pct 16.3 % [facility] Comment: Interpretive Data Percent cell count reference ranges are not reported, since discordance with absolute values may lead to misinterpretation of CBC data. Current Interpretive Data was last revised on 2017. Monocyte pct 9.5 % [facility] Comment: Interpretive Data Percent cell count reference ranges are not reported, since discordance with absolute values may lead to misinterpretation of CBC data. Current Interpretive Data was last revised on 2017. Eosinophil pct 0.7 % [facility] Comment: Interpretive Data Percent cell count reference ranges are not reported, since discordance with absolute values may lead to misinterpretation of CBC data. Current Interpretive Data was last revised on 2017. Basophil pct 0.3 % [facility] Comment: Interpretive Data Percent cell count reference ranges are not reported, since discordance with absolute values may lead to misinterpretation of CBC data. Current Interpretive Data was last revised on 2017. Blood 07/31/2024 5:45 AM TRIMMER LOADER 07/31/2024 6:57 AM TRIMMER LOADER Onel Reynoso DO LAB BLOOD ORDERABLES F inal Result Performing Organization Address City/[facility]/ZIP Co de Phone Number [facility] [address] [place], [place] [id number] * (ABNORMAL) CBC with auto differential (07/31/2024 5:45 AM TRIMMER LOADER) Pathologist [facility] WBC 6.1 3.8 - 9.9 K/cumm Hgb 12.6(L) 13.0 - 17.5 g/dL [facility] Hct 39.1 38.9 - 50.3 % [facility] [facility] Plt 170 150 - 400 K/cumm [facility] MPV 10.9 9.1 - 12.3 fL [facility] RBC 4.09(L) 4.30 - 5.80 M/cumm [facility] MCV 95.6 81.3 - 96.4 fL [facility] MCH 30.8 27.1 - 33.3 pg [facility] MCHC 32.2(L) 32.3 - 35.7 g/dL [facility] RDW CV 14.8 11.1 - 14.9 % [facility] RDW SD 51.8(H) 35.7 - 48.1 fL [facility] NRBC abs 0.00 0.00 - 0.01 K/cumm [facility] Blood 07/31/2024 5:45 AM TRIMMER LOADER 07/31/2024 6:57 AM TRIMMER LOADER Onel Reynoso DO LAB BLOOD ORDERABLES F inal Result Performing Organization Address [facility]/ZIP Co de Phone Number [facility] [address] Department [place], [place] [id number] * Magnesium (07/31/2024 5:45 AM TRIMMER LOADER) Pathologist [facility] Magnesium 2.0 1.4 - 2.5 mg/dL Blood 07/31/2024 5:45 AM TRIMMER LOADER 07/31/2024 6:57 AM TRIMMER LOADER Onel Reynoso LAB BLOOD ORDERABLES F inal Result [facility] [address] Department [place] [address] * (ABNORMAL) Basic metabolic panel (07/31/2024 5:45 AM TRIMMER LOADER) [facility] Sodium 139 135 - 145 mmol/L Potassium, pl 4.0 3.3 - 4.9 mmol/L [facility] Chloride 106 97 - 110 mmol/L [facility] CO2 22 22 - 32 mmol/L [facility] Anion gap 11 2 - 15 mmol/L [facility] BUN 23 6 - 25 mg/dL [facility] Creatinine 0.94 0.80 - 1.30 mg/dL [facility] Glucose 90 70 - 199 mg/dL [facility] Comment: Interpretive Data Fasting glucose >/= 126 [...] classification and Diagnosis of Diabetes Diabetes Care 202; 46: S19-S40. Current interpretive data was last revised 2022. Calcium 8.2(L) 8.5 - 10.3 mg/dL [facility] Blood 07/31/2024 5:45 AM TRIMMER LOADER 07/31/2024 6:57 AM TRIMMER LOADER Onel Reynoso DO LAB BLOOD ORDERABLES F inal Result [facility] [address] Department [place] [address] * CT Thoracic Spine WO Contrast (07/30/2024 9:44 PM TRIMMER LOADER) Anatomical Region Laterality Modality Spine N/A Computed Tomogra phy 07/30/2024 9:31 PM TRIMMER LOADER Impressions 07/31/2024 7:34 AM TRIMMER LOADER 1. Multilevel thoracic spondylosis. 2. No new acute osseous abnormality compared with prior CT chest, abdomen and pelvis dated 10/07/2023. For the purposes of chemistry quality control analyst, this study was initially interpreted by teleradiology. There is no significant discrepancy. Electronically signed by: Andrew Rodriguez M.D. Narrative 07/31/2024 7:[address] THORACIC SPINE WO CONTRAST 07/30/2024 9:25 [...] pelvis dated 10/07/2023. For the purposes of chemistry quality control analyst, this study was initially interpreted by teleradiology. There is no significant discrepancy. Electronically signed by: Andrew Rodriguez M.D. us Bradford Valencia MD IMG CT PROCEDURES Final Re sult * CT Lumbar Spine WO Contrast (07/30/2024 9:44 PM TRIMMER LOADER) Anatomical Region Laterality Modality Spine N/A Computed Tomogra phy 07/30/2024 9:31 PM TRIMMER LOADER Impressions 07/31/2024 7:32 AM TRIMMER LOADER 1. Multiple compression deformity along the lumbar spine, unchanged compared with prior CT dated 10/07/2023. 2. Multilevel lumbar spondylosis. 3. 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 4. L4-5 moderate to severe bilateral neural foraminal narrowing. For the purposes of chemistry quality control analyst, this study was initially interpreted by teleradiology. There is no significant discrepancy. Electronically signed by: Andrew Rodriguez M.D. Narrative 07/31/2024 7:[address] LUMBAR SPINE WO CONTRAST 07/30/2024 9:30 [...] neural foraminal narrowing. For the purposes of chemistry quality control analyst, this study was initially interpreted by teleradiology. There is no significant discrepancy. Electronically signed by: Andrew Rodriguez M.D. Bradford Valencia MD IMG CT PROCEDURES Final Re sult * CT Cervical Spine WO Contrast (07/30/2024 9:44 PM TRIMMER LOADER) Anatomical Region Laterality Modality Spine N/A Computed Tomogra phy 07/30/2024 9:30 PM TRIMMER LOADER Impressions 07/31/2024 7:32 AM TRIMMER LOADER 1. Multilevel cervical spondylosis. 2. No acute osseous abnormality. For the purposes of chemistry quality control analyst, this study was initially interpreted by teleradiology. There is no significant discrepancy. Electronically signed by: Andrew Rodriguez M.D. Narrative 07/31/2024 7:[address] CERVICAL SPINE WO CONTRAST 07/30/2024 9:20 [...] stenosis. Procedure Note Andrew Rodriguez MD - 07/31/2024 CT CERVICAL SPINE WO CONTRAST 07/30/2024 9:20 [...] acute osseous abnormality. For the purposes of chemistry quality control analyst, this study was initially interpreted by teleradiology. There is no significant discrepancy. Electronically signed by: Andrew Rodriguez M.D. us Bradford Valencia MD IMG CT PROCEDURES Final Re sult * XR Pelvis 1 or 2 Views (07/30/2024 9:09 PM TRIMMER LOADER) Anatomical Region Laterality Modality Body, Pelvis N/A Computed Radiogr aphy 07/31/2024 9:03 AM TRIMMER LOADER Impressions 07/31/2024 9:03 AM TRIMMER LOADER Single view pelvis exam is submitted for interpretation without comparison. Evaluation is suboptimal due to superimposed support devices, partial collimation of the left femur out of the field of view, the patient rotation, and osteopenia. The femoral heads project in expected position. There is no pelvic diastases. No displaced pelvic fracture is observed. Electronically signed by: Fer Montaño M.D. Narrative 07/31/2024 9:03 AM TRIMMER LOADER EXAMINATION: XR PELVIS 1 OR 2 VIEWS [...] Troponin T high-sensitivity 2-hour (07/30/2024 8:24 PM TRIMMER LOADER) Trop T hs 20 <=22 ng/L Comment: Interpretive Data For further hscTnT resources including the diagnostic algorithm and an aid in interpretation, copy and paste this link: https://nrl.testcatalog.org/show/hsTrop Current Interpretive Data last revised 2020. Trop T hs delta 1 ng/L [facility] Trop T hs interp Insignificant [facility] Blood 07/30/2024 8:24 PM TRIMMER LOADER 07/30/2024 8:31 PM TRIMMER LOADER us Arnie Ma MD LAB BLOOD ORDERABLES Fin al Result [facility] [address] Department [place] [address] * XR Chest PA Lateral 2 Views (07/30/2024 5:45 PM TRIMMER LOADER) Anatomical Region Laterality Modality Body, Chest N/A Computed Radiogr aphy 07/30/2024 6:22 PM TRIMMER LOADER Impressions 07/30/2024 6:22 PM TRIMMER LOADER Comparison chest radiograph 10/07/2023. Left hip including [...] Garsia MD, PHD Narrative 07/30/2024 6:22 PM TRIMMER LOADER EXAMINATION: XR CHEST PA LATERAL 2 VIEWS [...] (baseline, 2hr, 4hr, 6hr) (07/30/2024 5:26 PM TRIMMER LOADER) Pathologist [facility] Trop T hs 19 <=22 ng/L Comment: Interpretive Data For further hscTnT resources including the diagnostic algorithm and an aid in interpretation, copy and paste this link: https://nrl.testcatalog.org/show/hsTrop Current Interpretive Data last revised 2020. Blood 07/30/2024 5:26 PM TRIMMER LOADER 07/30/2024 5:38 PM TRIMMER LOADER Bradford Valencia MD LAB BLOOD ORDERABLES Final Result [facility] [address] [place] [address] * eGFR (07/30/2024 5:26 PM TRIMMER LOADER) eGFR 75 >=60 mL/min/1. 73 m2 Comment: [...] last reviewed 2021. Blood 07/30/2024 5:26 PM TRIMMER LOADER 07/30/2024 5:38 PM TRIMMER LOADER us Bradford Valencia MD LAB BLOOD ORDERABLES Final Result [facility] [address] [place] [address] * Differential, auto (07/30/2024 5:26 PM TRIMMER LOADER) Neutrophil abs 5.2 1.5 - 6.5 K/cumm Imm gran abs 0.0 0.0 - 0.1 K/cumm [facility] Lymphocyte abs 1.4 0.8 - 3.3 K/cumm [facility] Monocyte abs 0.7 0.2 - 0.8 K/cumm [facility] Eosinophil abs 0.2 0.0 - 0.5 K/cumm [facility] Basophil abs 0.0 0.0 - 0.1 K/cumm [facility] Neutrophil pct 68.9 % [facility] Comment: Interpretive Data Percent cell count reference ranges are not reported, since discordance with absolute values may lead to misinterpretation of CBC data. Current Interpretive Data was last revised on 2017. Imm gran pct 0.3 % [facility] Comment: Interpretive Data Percent cell count reference ranges are not reported, since discordance with absolute values may lead to misinterpretation of CBC data. Current Interpretive Data was last revised on 2017. Lymphocyte pct 18.9 % [facility] Comment: Interpretive Data Percent cell count reference ranges are not reported, since discordance with absolute values may lead to misinterpretation of CBC data. Current Interpretive Data was last revised on 2017. Monocyte pct 8.7 % [facility] Comment: Interpretive Data Percent cell count reference ranges are not reported, since discordance with absolute values may lead to misinterpretation of CBC data. Current Interpretive Data was last revised on 2017. Eosinophil pct 2.8 % [facility] Comment: Interpretive Data Percent cell count reference ranges are not reported, since discordance with absolute values may lead to misinterpretation of CBC data. Current Interpretive Data was last revised on 2017. Basophil pct 0.4 % [facility] Comment: Interpretive Data Percent cell count reference ranges are not reported, since discordance with absolute values may lead to misinterpretation of CBC data. Current Interpretive Data was last revised on 2017. Blood 07/30/2024 5:26 PM TRIMMER LOADER 07/30/2024 5:38 PM TRIMMER LOADER Bradford Valencia MD LAB BLOOD ORDERABLES Final Result [facility] [address] Department [place] [address] * Respiratory pathogen panel Nasopharyngeal (07/30/2024 5:26 PM TRIMMER LOADER) Pathologist [facility] Influenza A RNA Not Detected Not Detected [facility] Influenza B RNA Not Detected Not Detected [facility] RSV RNA Not Detected Not Detected [facility] COVID-19 RNA Not Detected Not Detected [facility] Coronavirus 229E RNA Not Detected Not Detected [facility] Coronavirus HKU1 RNA Not Detected Not Detected [facility] Coronavirus NL63 RNA Not Detected Not Detected [facility] Coronavirus OC43 RNA Not Detected Not Detected [facility] Adenovirus DNA Not Detected Not Detected [facility] Metapneumovirus RNA Not Detected Not Detected [facility] Rhinovirus/Enterov irus RNA Not Detected Not Detected [facility] Parainfluenza 1 RNA Not Detected Not Detected [facility] Parainfluenza 2 RNA Not Detected Not Detected [facility] Parainfluenza 3 RNA Not Detected Not Detected [facility] Parainfluenza 4 RNA Not Detected Not Detected [facility] B. pertussis DNA Not Detected Not Detected [facility] B. parapertussis DNA Not Detected Not Detected [facility] C. pneumoniae DNA Not Detected Not Detected [facility] M. pneumoniae DNA Not Detected Not Detected [facility] Comment: Interpretive Data The [employer] FilmArray Respiratory Panel (RP2.1) assay is a [...] assay has FDA clearance for testing of OB/GYN DOCTOR swabs. The performance characteristics of this assay have been determined by [facility]. Current interpretive data was last revised on 2020. Nasopharyngeal 07/30/2024 5: 26 PM TRIMMER LOADER 07/30/2024 5:42 PM TRIMMER LOADER Narrative [facility] - 07/30/2024 6:33 PM TRIMMER LOADER Is the Patient experiencing symptoms consistent with COVID?->Yes Surveillance testing for transplant patient?->No Bradford Valencia MD LAB MICROBIOLOGY - GENERAL ORDERABLES Final Result Performing Organization Address City/[facility]/ZIP Co de Phone Number [facility] [address] [place] [place] [address] [facility] * (ABNORMAL) CBC with auto differential (07/30/2024 5:26 PM TRIMMER LOADER) Pathologist [facility] WBC 7.5 3.8 - 9.9 K/cumm Hgb 14.5 13.0 - 17.5 g/dL [facility] Hct 45.0 38.9 - 50.3 % [facility] Plt 211 150 - 400 K/cumm [facility] MPV 10.3 9.1 - 12.3 fL [facility] RBC 4.76 4.30 - 5.80 M/cumm [facility] MCV 94.5 81.3 - 96.4 fL [facility] MCH 30.5 27.1 - 33.3 pg [facility] MCHC 32.2(L) 32.3 - 35.7 g/dL [facility] RDW CV 14.7 11.1 - 14.9 % [facility] RDW SD 51.4(H) 35.7 - 48.1 fL [facility] NRBC abs 0.00 0.00 - 0.01 K/cumm [facility] Blood Venous blood specimen / Unknown 07/30/2024 5:26 PM TRIMMER LOADER 07/30/2024 5:38 PM TRIMMER LOADER Bradford Valencia MD LAB BLOOD ORDERABLES Final Result Performing Organization Address City/[facility]/ZIP Co de Phone Number [facility] [address] [place] [address] * (ABNORMAL) Comprehensive metabolic panel (07/30/2024 5:26 PM TRIMMER LOADER) Sodium 139 135 - 145 mmol/L Potassium, pl 3.8 3.3 - 4.9 mmol/L [facility] Chloride 105 97 - 110 mmol/L [facility] CO2 23 22 - 32 mmol/L [facility] Anion gap 11 2 - 15 mmol/L [facility] BUN 19 6 - 25 mg/dL [facility] Creatinine 0.97 0.80 - 1.30 mg/dL [facility] Glucose 100 70 - 199 mg/dL [facility] Comment: Interpretive Data Fasting glucose >/= 126 [...] classification and Diagnosis of Diabetes Diabetes Care 202; 46: S19-S40. Current interpretive data was last revised 2022. Calcium 8.7 8.5 - 10.3 mg/dL [facility] Bilirubin, total 1.2 0.1 - 1.2 mg/dL [facility] Protein, pl 6.2(L) 6.5 - 8.5 g/dL [facility] Albumin 3.2(L) 3.5 - 5.0 g/dL [facility] Alk phos 120 40 - 130 Units/L [facility] ALT 10 7 - 55 Units/L [facility] AST 30 10 - 50 Units/L [facility] Comment:Slightly Hemolyzed S pecimen Blood 07/30/2024 5:26 PM TRIMMER LOADER 07/30/2024 5:38 PM TRIMMER LOADER us Bradford Valencia MD LAB BLOOD ORDERABLES Final Result [facility] [address] [place] [address] * ECG 12 lead (07/30/2024 5:20 PM TRIMMER LOADER) 07/30/2024 5:20 PM TRIMMER LOADER Narrative [facility] - 07/31/2024 10:01 AM TRIMMER LOADER Vent Rate: 89 bpm RR Interval: 674 msec [place] Interval: 131 msec QRS Duration: 127 msec QT Interval: 396 msec QTC Interval: 442 msec P-R-T [place]: 38 - 249 - 62 degrees IMPRESSION: ELECTRONIC VENTRICULAR PACEMAKER THE UNDERLYING RHYTHM IS SINUS ABNORMAL ECG Electronically Signed By: Bradford Johnson MD [facility] us Bradford Valencia MD ECG ORDERABLES Final Resu lt [facility] Hipscan [facility] * DEVICE CHECK - REMOTE (07/08/2024 11:23 AM TRIMMER LOADER) Anatomical Region Laterality Modality Other Narrative 07/18/2024 8:34 AM TRIMMER LOADER Table formatting from the original result was not included. BiV ICD CHECK (REMOTE) Patient ID: Jose Shaw is a 89 y.o. male. This patient received a [place] [employer] BiV ICD. They had a routine remote [...] 11.8 seconds. Episodes last 90 days/Comments: AF Naylor less than 1 %, there were numerous [...] MEDICATIONS: Anti-coagulant(s): None Anti-arrhythmic(s): None PLAN: 1) [place] scientific BiV ICD evaluation 2) [place] scientific remote transmission scheduled in 3 months. 3) Programming appropriate for device settings Ez Chavez RN us Alber Lynn MD [facility] CARDIAC SERVICES PRO CEDURES Final Result from Last [address] [place] [address] [place] [address] MEDICARE MEDICARE MEDICARE MEDICARE Advance Directives For more information, please contact: [phone] * LIMITED - No CPR (Latest Code [...] 12:42 AM 07/31/2024 2:21 PM Care Teams Prosthodontist Relationship Specialty Start Date End Date Isabel Bowen MD [address] [place] [address] PCP - General 09/02/16 Miscellaneous, Not In File 08/05/24
--- NOTE | 2024-08-25 09:47 | PC.NURSE ---
Family are discussion options with customer care representative to make pt comfort measures.
--- NOTE | 2024-08-25 10:34 | PCCCNOTE ---
ED provider shared report with this Electric Stop Installer. Pt's Daughter and son-in-law stated the pt is not wanting to eat/drink and wanting comfort care. Educated them on comfort care options and Hospice services which they are agreeable. Called Levy with [facility] at [phone] in which she verified they are contracted with [email or web address]. Contacted Berna with [facility], gave report and faxed the referral successfully to [phone]. Shared the spouses contact information of Mayur Malone as requested by family of [phone] for [employer] to outreach. Family, Levy with [facility] and Berna with [email or web address] is agreeable to meet back at facility today to admit to hospice services. ED providers were updated with the status of the plan.-brayan
--- NOTE | 2024-08-25 11:28 | PC.NURSE ---
attempted 5 time to call report at the [facility], no answer.
--- NOTE | 2024-08-25 12:15 | PCCCNOTE ---
Sandeep from [facility] [place] called from [phone], stated their phones were down and calling to get report on the pt. Did advised the ED nurse attempted 5 times to give report unsucessfully and again apologized. Shared the pt was admitted to [facility] services and would be returning to facility today. Sandeep verbalized understanding. ED nurse updated report was completed.-brayan.
== END 2024-08-25 11:31 ==
PROVIDERS: Emergency Provider Emergency Medicine
DX: R62.7 Adult failure to thrive (principal); Z68.1 Body mass index [BMI] 19.9 or less, adult; K21.9 Gastro-esophageal reflux disease without esophagitis; I10 Essential (primary) hypertension; E78.00 Pure hypercholesterolemia, unspecified; Z95.0 Presence of cardiac pacemaker; Z87.891 Personal history of nicotine dependence
CPT/HCPCS: 93005; 96360; 99283